=== PATIENT | female | born 1965 | race Caucasian/White ===

== ENCOUNTER 2020-09-24 08:15 | Outpatient (REF) | payer OTHER, SELFPAY ==
[2020-09-24 08:41] LABS: COVID-19 Test Negative (Negative)
== END 2020-09-24 08:16 | disposition home or self-care (01) ==
LOC: HO.EMPCOV 08:15
PROVIDERS: Visit Provider Internal Medicine
DX: Z20.828 Contact with and (suspected) exposure to other viral communicable diseases (principal)
CPT/HCPCS: 87635; C9803

== ENCOUNTER 2020-11-28 09:50 | Outpatient (REF) | payer OTHER, SELFPAY ==
[2020-11-28 10:10] LABS: COVID-19 Test Negative (Negative)
== END 2020-11-28 09:51 | disposition home or self-care (01) ==
LOC: HO.EMPCOV 09:50
PROVIDERS: Visit Provider Internal Medicine
DX: Z20.822 Contact with and (suspected) exposure to COVID-19 (principal)
CPT/HCPCS: 36415; 87635; C9803

== ENCOUNTER 2020-11-28 12:24 | Outpatient (REF) | payer OTHER, SELFPAY ==
[2020-11-28 13:45] LABS: Hematocrit 41.7 % (37-47); Hemoglobin 13.6 g/dl (12.0-16.0); Mean Corpuscular HGB Conc 32.6 g/dl (31.0-35.0); Mean Corpuscular Hemoglobin 30.6 pg (27.0-33.0); Mean Corpuscular Volume 93.9 fL (80-98); Mean Platelet Volume 9.8 fL (9.4-12.3); Platelet Count 250 X10*3/uL (160-400); Red Blood Count 4.44 X10*6/uL (4.20-5.50); Red Cell Distribution Width 12.2 % (11.0-16.0); White Blood Count 8.7 X10*3/uL (4.8-10.8)
[2020-11-28 14:09] LABS: Troponin-I High Sensitivity < 3.5 ng/L (<3.5-17.0)
[2020-11-28 14:18] LABS: Alanine Aminotransferase 31 U/L (0-31); Albumin Level 4.5 g/dL (3.5-5.0); Alkaline Phosphatase 72 U/L (39-117); Anion Gap 12 (12-20); Aspartate Amino Transferase 29 U/L (5-31); Bilirubin Direct < 0.2 mg/dL (0.0-0.5); Bilirubin Total 0.4 mg/dL (0.0-1.0); Blood Urea Nitrogen 15 mg/dL (9-16); Calcium 9.4 mg/dL (8.4-10.2); Carbon Dioxide 29 mmol/L (22-29); Chloride 103 mmol/L (96-108); Cholesterol 228 mg/dL; Estimated Glomerular Filt Rate > 60; Glucose Fasting 92 mg/dL (60-99); HDL Cholesterol 40 mg/dL; Potassium 4.5 mmol/L (3.3-5.1); Sodium 139 mmol/L (135-145); Total Protein 7.1 g/dL (6.5-8.0); Triglycerides 487 mg/dL
[2020-11-28 14:26] LABS: TSH reflex Free T4 2.24 uIU/mL (0.32-4.0)
== END 2020-11-28 12:25 | disposition home or self-care (01) ==
LOC: HO.WFDLDS 12:24
PROVIDERS: Visit Provider Hospitalist
DX: Z00.00 Encounter for general adult medical examination without abnormal findings (principal); R42 Dizziness and giddiness
CPT/HCPCS: 36415; 80048; 80061; 80076; 84443; 84484; 85027

== ENCOUNTER 2020-12-05 10:51 | Outpatient (REF) | payer OTHER, SELFPAY ==
[2020-12-05 12:15] LABS: COVID-19 Test Negative (Negative); IDNOW Serial# 55D5AD1C
== END 2020-12-05 10:52 | disposition home or self-care (01) ==
LOC: HO.LAB 10:51
PROVIDERS: PCP Hospitalist; Referring Provider Internal Medicine; Visit Provider Internal Medicine
DX: R07.2 Precordial pain (principal); R23.2 Flushing; R06.02 Shortness of breath; R94.31 Abnormal electrocardiogram [ECG] [EKG]; E78.5 Hyperlipidemia, unspecified; Z79.899 Other long term (current) drug therapy
CPT/HCPCS: 36415; 87635; 93005; C9803

== ENCOUNTER → 2020-12-11 08:14 | Outpatient (REF) | payer OTHER, SELFPAY ==
--- NOTE | ~2020-12-11 | NM_ITS ---
EXERCISE MYOCARDIAL PERFUSION STUDY INDICATION: Chest pain, shortness of breath, assess for coronary disease and ischemia TECHNIQUE: The patient was brought in for an exercise perfusion study on 12/11/2020. Patient performed exercise as per Nomi protocol and was injected 40 mCi of sestamibi once target heart rate was achieved. Images were obtained using the SPECT gamma camera interlaced with the gating device. Images were obtained in supine position. Resting perfusion study was performed on 12/13/2020. Patient was administered 40 mCi of sestamibi intravenously at rest. Images were then obtained in supine position. Total DLP 118mGy-cm. Images were processed with the software and compared side to side in short axis, horizontal long axis and vertical long axis views. FINDINGS: Raw images were reviewed. The stress perfusion study showed mildly diminished tracer uptake in the distal part of anteroseptal and inferolateral gracia; basal inferolateral wall. With CT attenuation correction, the distal anteroseptal defect is still present but others are improved. The gated study shows normal LV systolic function with calculated LVEF of 74%. LV cavity is normal in size. The gated study shows normal wall thickening and contraction of segments. Resting study shows a small perfusion defect in the distal anteroseptal wall but otherwise unremarkable. Gating at rest reveals normal wall motion with ejection fraction at 68%. The findings are consistent with no definite reversible defects. Fixed defect in the distal part of anteroseptal wall.. NM/NM cardiolite stress test IMPRESSION: 1. Myocardial perfusion imaging study shows no definitive ischemia or infarction. There is a fixed defect in the distal part of anteroseptal wall that is probably from soft tissue attenuation. 2. Gated LVEF is 74% during stress and 68% during rest. 3. Transient ischemic dilatation not present. EKG component of the test reported separately.
--- NOTE | 2020-12-11 08:18 | CA_ITS ---
Acquisition Time: 2020-12-11 08:42:53 Total Exercise Time: 00:05:00 Test Indications: CP, SOB Medications: SEE CHART Protocol: OG Max HR: 151 BPM 92% of Pred: 163 BPM Max BP: 198/070 mmHG Max Work Load: 7.0 METS Exercise stress nuclear using Og protocol. Total of 5 min. METS 7.00 with TAPHR up to 93 %. Pt tolerated well, denies any anginal sx. EKG without any arrhythmias, no ischemic changes seen during exercise or in recovery. Nuclear images to follow. Hypertensive response to exercise, normalizes in recovery. Test reviewed with Dr. Guevara. Referred By: Silverio Guevara Overread By:
== END ==
LOC: HO.CARD 08:14
PROVIDERS: Visit Provider Internal Medicine
DX: R07.2 Precordial pain (principal); R06.02 Shortness of breath
CPT/HCPCS: 78452; 93016; 93017; 93018; A9500

== ENCOUNTER → 2021-01-10 15:01 | Outpatient (REF) | payer OTHER, SELFPAY ==
--- NOTE | 2021-01-10 15:06 | CA_ITS ---
Transthoracic Echocardiogram Patient (Last, First, Middle): Cherrie Yusfu E Gender: Female Date of : 1965 Age: 55 Procedure Date: 01/10/2021 Procedure Type: Transthoracic Echocardiogram Location: OP Height: 160.02 cm Weight: 108.86 kg BSA: 2.09 m2 Heart Rate: bpm BP: 120 / 70 mmHg Deputy Probation Officer: TIA Referring MD: Silverio Guevara MD Symptoms: R07.2 - Precordial pain Study Quality: Fair ECG Rhythm: Sinus Conclusions: - The left ventricular systolic function is hyperdynamic. The visually estimated ejection fraction is >70%. - No obvious valvular pathology seen on this study. Findings Left Ventricle Normal left ventricular cavity size. There is normal left ventricular wall thickness. The left ventricular systolic function is hyperdynamic. The visually estimated ejection fraction is >70%. There is no evidence of regional wall motion abnormalities. There is no systolic anterior motion of the mitral valve. Diastolic function is normal for age. Right Ventricle Normal right ventricular cavity size and systolic function. Atria The left atrium is normal in size. The right atrium is normal in size. Aortic Valve There is a normal trileaflet aortic valve. There is no aortic valve stenosis. There is no aortic valve regurgitation. Mitral Valve The mitral valve appears normal. There is trace mitral valve regurgitation. There is trace mitral valve stenosis. Pulmonic Valve The pulmonic valve was not well visualized. Tricuspid Valve Normal tricuspid valve structure. There is trace tricuspid valve regurgitation. The pulmonary artery systolic pressure is normal. Great Vessels The aortic annulus, sinuses of valsalva, and asc aorta are normal in size. Venous The inferior vena cava is normal in size and collapses greater than 50% with inspiration. Pericardium/Pleural There is no evidence of pericardial effusion. Prior Study Comparison No prior study available for comparison. Recommendations, Care & Conclusions No obvious valvular pathology seen on this study. Measurements M-Mode Liner Measurements Normals - Women/Men AOV Cusps: 1.70 1.5-2.6 cm/m2 2D Linear Measurements IVSd: 0.90 0.6-0.9/0.6-1.0 cm LVIDd: 3.96 3.9-5.3/4.2-5.9 cm LVIDd Index: 1.89 2.4-3.2/2.2-3.1 cm/m2 LVIDs: 2.37 2.0-3.6 cm LVPWd: 0.92 0.7-1.1 cm Ao Root: 2.40 2.1-3.5 cm LA Diam: 3.40 2.7-3.8/3.0-4.0 cm LAIDs Index: 1.63 1.5-2.3 cm/m2 LV Mass: 135.62 67-162/88-224 g LV Mass Index: 64.89 43-95/49-115 g/m2 LVOT Diam: 1.70 3.0+(-)1.3 cm 2D Systolic Function EF 4C: 77.40 >55% EF 2C: 69.90 >55% EF BiP: 73.80 >55% Mitral Valve MV Pk E: 0.96 MV PK A: 0.81 MV Decel Time: 183.00 E/A: 1.20 E'Lateral: 13.70 E'Medial: 7.29 E/E' Med: 13.20 E/E' Lat: 7.00 PHT: 54.00 MVA PHT: 4.07 Decel [place]: 5.25 Aortic Valve AoV Pk German: 1.66 AoV Pk Grad: 11.00 LVOT LVOT Pk German: 1.41 LVOT Mn German: 0.88 LVOT VTI: 0.31 LVOT Pk Grad: 8.00 LVOT Mn Grad: 4.00 LVOT Diam: 1.70 LVOT Area: 2.27 Diastolic Function MV Pk E: 0.96 MV Pk A: 0.81 E/A: 1.20 E'Medial: 7.29 E/E' Med: 13.20 E' Laterial: 13.70 E/E' Lat: 7.00 Tricuspid Valve TR Pk German: 1.66 TR Pk Grad: 11.00 RA Press: 3.00 RVSP: 14.00 Great Vessels Aorta Ao Root-2D: 2.40 2.0-3.7 cm Ao Asc: 2.60 2.1-3.4 cm Ao Arch: 2.20 Pulmonary Valve PV Pk German: 1.00 Peak PV Grad: 4.00 Updated in Other Vendor System with Status of Final Silverio Guevara MD electronically signed on 01/12/2021 1:03:14 PM with status of Final
== END ==
LOC: HO.CARD 15:01
PROVIDERS: Visit Provider Internal Medicine
DX: R07.2 Precordial pain (principal)
CPT/HCPCS: 93306

== ENCOUNTER → 2021-01-14 15:19 | Outpatient (BNVA) | payer OTHER, SELFPAY | PROVIDERS: PCP Hospitalist; Visit Provider Internal Medicine ==

== ENCOUNTER 2021-03-12 07:59 | Outpatient (REF) | payer OTHER, SELFPAY ==
[2021-03-13 08:36] LABS: LDL Cholesterol Direct 130 mg/dL (<100)
== END 2021-03-12 08:00 | disposition home or self-care (01) ==
LOC: HO.LAB 07:59
PROVIDERS: PCP Hospitalist; Visit Provider Internal Medicine
DX: E78.2 Mixed hyperlipidemia (principal)
CPT/HCPCS: 36415; 83721

== ENCOUNTER → 2021-05-14 15:15 | Outpatient (BNVA) | payer OTHER, SELFPAY | PROVIDERS: PCP Hospitalist | DX: Z13.89 Encounter for screening for other disorder (principal) | CPT/HCPCS: 99203 ==

== ENCOUNTER 2021-06-11 17:00 | Outpatient (RCR) | payer OTHER, SELFPAY ==
--- NOTE | 2021-05-14 13:45 | MHC.PT.EP ---
[facility] [place] Office [place] Office [place] Office [address] Jaqueline Najera [address] [phone] F: [phone] F: [phone] F: [phone] F: [phone] Physical Therapy Plan of Care Date of Evaluation: Date of Surgery: N/A Diagnosis: R lateral hip/gluteal pain, muscle strain of gluteal region Assessment: Pt is a 55yo F who presents to PT with pain in R glute for about 1 month. Her pain has been improving but her pain is still her limiting performance with functional activities. Pt presents with current impairments in pain, strength, endurance, soft tissue restrictions, posture, and body mechanics. She is limited functionally by prolonged sitting, prolonged standing, squatting, and bending. She is an excellent candidate for skilled PT services to address current impairments and facilitate return to pain-free PLOF. Frequency and Duration: The patient will be seen 2x/week, 4 weeks Short Term Goals: Pt will be I with HEP to promote self management of symptoms Pt will improve glute med and max strength to 4-/5 Prorate Clerk Goals: Pt will demonstrate full, pain-free ROM and strength throughout R hip Pt will tolerate sitting >30 min with proper positioning and without pain Pt will demonstrate improvement in functional mobility as evidenced by statistically significant improvement in LEFI Treatment Plan: Modalities to reduce pain, spasms and effusion. Manual therapy to restore motion and function. Therapeutic exercise to improve strength and flexibility. Neuromuscular re-education for posture and balance. Therapeutic activities to return to functional activities of daily living. Electronically signed by: Katie Haider, PT, DPT Please sign and return to therapist. Thank you for your referral.
--- NOTE | 2021-05-30 16:37 | MHC.PT.DC ---
[facility] [place] Office [place] Office [place] Office [address] Jaqueline Najera 140 [facility] [phone] F: [phone] F: [phone] F: [phone] F: [phone] Physical Therapy Discharge Report Diagnosis: R lateral hip/gluteal pain, muscle strain of gluteal region Date of Surgery: N/A Date of Evaluation: 05/14/21 Date of Discharge: Treatments to Date: 4 Cancellations to Date: No Shows to Date: 1 Discharge Status: Discharge Summary: [employer] performed for R POST Inominate F/B shotgun.No increased px w/added core stab/Gentle stretches Electronically signed by: Alexander eLw PIPE COREMAKER Please sign and return to therapist. Thank you for your referral.
--- NOTE | 2021-06-11 18:17 | MHC.PT.DC ---
[facility] [place] Office [place] Office [place] Office [address] Jaqueline Najera [address] [phone] F: [phone] F: [phone] F: [phone] F: [phone] Physical Therapy Discharge Report Diagnosis: R lateral hip/gluteal pain, muscle strain of gluteal region Date of Surgery: N/A Date of Evaluation: 05/14/21 Date of Discharge: 06/11/21 Treatments to Date: 8 Cancellations to Date: No Shows to Date: 1 Discharge Status: Achieved Goals Improved Function Independent with HEP Discharge Summary: Pt has made great progress toward her goals. She has full, pain-free ROM throughout R hip. Her glute med strength improved to 4/5 and R glute max strength improved to 4-/5. She is able to sit >30 min without increase in pain. Pt is I with HEP. Provided pt with updated HEP and she has blue thera band at home. Pt will be D/C to HEP this date. Pt reports no further questions or concerns for PT at this time. Electronically signed by: Katie Haider, PT, DPT Please sign and return to therapist. Thank you for your referral.
== END 2021-06-11 18:16 | disposition home or self-care (01) ==
LOC: HO.PT 17:00
PROVIDERS: PCP Hospitalist; Visit Provider Family Medicine
DX: S76.019D Strain of muscle, fascia and tendon of unspecified hip, subsequent encounter (principal)
CPT/HCPCS: 97110; 97161

== ENCOUNTER 2021-06-13 | Outpatient (REF) | payer OTHER, SELFPAY | END 2021-06-13 00:01 | disposition home or self-care (01) | LOC: HO.LNP | PROVIDERS: Visit Provider Hospitalist | DX: Z20.822 Contact with and (suspected) exposure to COVID-19 (principal); B34.9 Viral infection, unspecified | CPT/HCPCS: U0003; U0005 ==

== ENCOUNTER 2021-06-14 11:42 | Outpatient (REF) | payer OTHER, SELFPAY | END 2021-06-14 11:43 | disposition home or self-care (01) | LOC: HO.LNP 11:42 | PROVIDERS: Visit Provider Hospitalist | DX: Z13.89 Encounter for screening for other disorder (principal) ==

== ENCOUNTER 2021-08-07 07:18 | Outpatient (REF) | payer OTHER, SELFPAY ==
[2021-08-07 07:27] LABS: MANUAL DIFF FLAG NO
[2021-08-07 07:55] LABS: Appearance Urine HAZY; Color Urine YELLOW; Glucose Urine UA NEG (NEG); Leukocyte Esterase Urine TRACE (NEG); Nitrite Urine NEG (NEG); Specific Gravity - Urine >= 1.030 (1.005-1.025); Urine Blood 2+ (NEG); Urine Ketones NEG (NEG); Urine Protein NEG (NEG-TRACE)
[2021-08-07 07:56] LABS: Basophils Percent Auto 0.4 % (0-2); Eosinophils Absolute Auto 0.1 X10*3/uL (0.0-0.4); Eosinophils Percent Auto 1.5 % (0-4); Hematocrit 42.7 % (37-47); Hemoglobin 14.2 g/dl (12.0-16.0); Imm Gran Abs Auto 0.02 X10*3/uL (0.00-0.03); Imm Gran Pct Auto 0.3 % (0.0-0.4); Lymphocytes Absolute Auto 2.6 X10*3/uL (1.2-4.9); Lymphocytes Percent Auto 36.6 % (20-40); Mean Corpuscular HGB Conc 33.3 g/dl (31.0-35.0); Mean Corpuscular Hemoglobin 30.5 pg (27.0-33.0); Mean Corpuscular Volume 91.6 fL (80-98); Mean Platelet Volume 9.6 fL (9.4-12.3); Monocytes Absolute Auto 0.4 X10*3/uL (0.1-1.2); Monocytes Percent Auto 5.1 % (2-11); Neutrophils Absolute Auto 4.1 X10*3/uL (2.0-8.3); Neutrophils Percent Auto 56.1 % (45-73); Platelet Count 234 X10*3/uL (160-400); Red Blood Count 4.66 X10*6/uL (4.20-5.50); Red Cell Distribution Width 12.1 % (11.0-16.0); White Blood Count 7.2 X10*3/uL (4.8-10.8)
[2021-08-07 08:19] LABS: Bacteria Urine TRACE /LPF; Mucus Urine 1+ /LPF; Renal Epithelial Cells Urine 1+ /LPF; Squamous Epithelial Cell Urine 2+ /LPF
[2021-08-07 08:19] LABS: Alanine Aminotransferase 24 U/L (0-31); Albumin Level 4.6 g/dL (3.5-5.0); Alkaline Phosphatase 79 U/L (39-117); Anion Gap 11 (12-20); Aspartate Amino Transferase 24 U/L (5-31); Blood Urea Nitrogen 11 mg/dL (9-16); Calcium 9.8 mg/dL (8.4-10.2); Carbon Dioxide 30 mmol/L (22-29); Chloride 106 mmol/L (96-108); Cholesterol 127 mg/dL; Estimated Glomerular Filt Rate > 60; Glucose Fasting 110 mg/dL (60-99); HDL Cholesterol 39 mg/dL; LDL Cholesterol Calculated 38 mg/dl; Potassium 4.8 mmol/L (3.3-5.1); Sodium 142 mmol/L (135-145); Total Protein 7.2 g/dL (6.5-8.0); Triglycerides 252 mg/dL
[2021-08-07 08:41] LABS: TSH reflex Free T4 2.31 uIU/mL (0.32-4.0)
[2021-08-08 05:51] LABS: LDL Cholesterol Direct 52 mg/dL (<100)
== END 2021-08-07 07:19 | disposition home or self-care (01) ==
LOC: HO.LAB 07:18
PROVIDERS: Internal Medicine; PCP Hospitalist; Visit Provider Family Medicine
DX: Z00.00 Encounter for general adult medical examination without abnormal findings (principal); E78.5 Hyperlipidemia, unspecified
CPT/HCPCS: 36415; 80053; 80061; 81001; 81003; 83721; 84443; 85025

== ENCOUNTER 2021-08-13 15:07 | Outpatient (REF) | payer OTHER, SELFPAY ==
[2021-08-16 15:01] LABS: HPV mRNA E6/E7 rflx Not Detected (Not Detected)
== END 2021-08-13 15:08 | disposition home or self-care (01) ==
LOC: HO.LAB 15:07
PROVIDERS: PCP Hospitalist; Visit Provider Advanced Practice Midwife
DX: Z01.419 Encounter for gynecological examination (general) (routine) without abnormal findings (principal); N88.8 Other specified noninflammatory disorders of cervix uteri; D21.9 Benign neoplasm of connective and other soft tissue, unspecified
CPT/HCPCS: 87624; 88142

== ENCOUNTER 2021-08-26 15:35 | Outpatient (REF) | payer OTHER, SELFPAY ==
--- NOTE | ~2021-08-26 | US_ITS ---
EXAMINATION: US PELVIS CLINICAL INFORMATION: Disorder of cervix. Fibroids. COMPARISON: None TECHNIQUE: Ultrasound of the pelvis is performed using both transabdominal and transvaginal transducers along with Doppler. Transvaginal imaging is performed due to inadequate visualization transabdominally. Exam is limited due to body habitus. FINDINGS: The uterus is anteverted and measures 10.7 x 7.3 x 8.1 cm in dimension. There are 3 focal uterine lesions seen probably representing fibroids. These measure 5.7 x 4.7 x 5.1 cm in the right uterine body, 4.1 x 4.8 x 3.8 cm in the left uterine body and 3.4 x 3 x 3 cm lesion projecting off the left uterine fundus. The endometrium is difficult to visualize due to the fibroids. Endometrial thickness measures 1.1 cm. There are nabothian cysts in the cervix. The ovaries are not seen. There is no fluid in the pelvis. US/US pelvic and transvaginal IMPRESSION: Limited exam. Enlarged fibroid uterus. Ovaries not seen.
== END 2021-08-26 15:36 | disposition home or self-care (01) ==
LOC: HO.US 15:35
PROVIDERS: Visit Provider Advanced Practice Midwife
DX: N88.8 Other specified noninflammatory disorders of cervix uteri (principal)
CPT/HCPCS: 76830; 76856

== ENCOUNTER 2021-09-05 08:32 | Outpatient (REF) | payer OTHER, SELFPAY | END 2021-09-05 08:33 | disposition home or self-care (01) | LOC: HO.LAB 08:32 | PROVIDERS: PCP Hospitalist; Visit Provider Obstetrics & Gynecology | DX: N90.89 Other specified noninflammatory disorders of vulva and perineum (principal) | CPT/HCPCS: 56605; 88305; 88312 ==

== ENCOUNTER → 2021-09-17 15:53 | Outpatient (BNVA) | payer OTHER, SELFPAY | PROVIDERS: PCP Hospitalist; Visit Provider Advanced Practice Midwife ==

== ENCOUNTER → 2021-09-25 15:44 | Outpatient (BNVA) | payer OTHER, SELFPAY | PROVIDERS: PCP Hospitalist; Visit Provider Obstetrics & Gynecology ==

== ENCOUNTER 2021-09-30 15:58 | Outpatient (REF) | payer OTHER, SELFPAY ==
--- NOTE | ~2021-09-30 | MM_ITS ---
EXAMINATION: MM SCREENING DIGITAL BREAST TOMOSYNTHESIS, BILATERAL CLINICAL INFORMATION: Screening. Asymptomatic. Prior xeu-il-imexa mammography currently unavailable. Family history breast cancer, maternal aunt. The lifetime risk of breast cancer based on the Tyrer-Cuzick Model is 10%. COMPARISON: None. TECHNIQUE: Digital breast tomosynthesis is performed in both the craniocaudal and mediolateral oblique views along with computer-aided detection (CAD). Synthesized 2D images are generated from the tomosynthesis. FINDINGS: There are scattered areas of fibroglandular density (ACR BI-RADS breast composition Category b). There are no significant masses, abnormal calcifications, or other abnormalities. The axilla and skin contours are unremarkable. Radiology department staff will attempt to retrieve prior mjm-bg-ultpo mammography to allow for comparison in an addendum report. MM/MM tomosynthesis screening BI IMPRESSION: No mammographic evidence of malignancy. ASSESSMENT: BI-RADS 1: Negative RECOMMENDATION: 1. Routine annual mammography screening. 2. Radiology department staff will attempt to retrieve prior buu-bq-iprub mammography to allow for comparison in an addendum report. This patient's information was entered into a reminder system with a target due date for their next mammogram.
== END 2021-09-30 15:59 | disposition home or self-care (01) ==
LOC: HO.MAMMO 15:58
PROVIDERS: PCP Hospitalist; Visit Provider Advanced Practice Midwife
DX: Z12.31 Encounter for screening mammogram for malignant neoplasm of breast (principal)
CPT/HCPCS: 77063; 77067

== ENCOUNTER 2021-10-25 07:03 | Day surgery (SDC) | payer OTHER, SELFPAY ==
[2021-10-15 12:59] VITALS: BMI 44.1
--- NOTE | 2021-10-24 11:59 | P.CONAN_ITS ---
Documented by User: Savanna Mota NP 11/04/21 12:19 HPI - Anesthesia Eval Consult details Narrative: 56yo F for Excision of Perineal Lesion PMFSH Active Problems Active Problems: All Active Problems (Updated 09/25/21 @ 15:57 by Nael Gee MD) Morbid obesity with BMI of 40.0-44.9, adult (Acute) Abnormal physical evaluation (Acute) Urinary incontinence (Acute) Encounter to discuss test results (Acute) Vulvar lesion (Acute) Encounter for annual routine gynecological examination (Acute) Fibroids (Acute) Immunization counseling (Acute) Viral syndrome (Acute) Muscle strain of gluteal region (Acute) Other and unspecified hyperlipidemia (Acute) Abnormal EKG (Acute) Precordial chest pain (Acute) Elevated triglycerides with high cholesterol (Acute) Drug interaction (Acute) Bradycardia (Acute) Dizziness (Acute) Past Medical History Medical History (Updated 12/10/21 @ 07:10 by Lety Saweyr RN) Asthma Depression Fibroids History of palpitations Other and unspecified hyperlipidemia Ovarian torsion Family History Family History Father High cholesterol Mother HTN (hypertension) Maternal Aunt History of breast cancer Other Mental health disorder Surgical History Surgical History (Updated 12/10/21 @ 07:11 by Lety Sawyer RN) History of arthroscopy of left knee History of D&C History of laparoscopic appendectomy History of laparoscopic cholecystectomy History of tonsillectomy Hx of colonoscopy Social History Social History Housing: Apartment Alcohol intake: current Alcohol intake frequency: holidays/special occasions only Patient Tobacco Use Status: Never used Tobacco e-Cigarette/Vaping Use: Never Used Second Hand Smoke Exposure: Yes Use of substances other than those prescribed or required for medical reasons: No Are you DNR?: No Advance Directives: No Advance Directives Information Provided: Yes service: No 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 Cognitive needs: No Hearing needs: No Vision needs: Yes (Glasses) Meds Allergies Allergy/AdvReac Type Severity Reaction Status Date / Time smallpox vaccine,live Allergy Severe seizures, Verified 12/10/21 07:11 grand mal aspirin Allergy Mild Hives Verified 12/10/21 07:11 bupropion [From Wellbutrin] Allergy Mild Palpitation Verified 12/10/21 07:11 s morphine Allergy Mild Rash Verified 12/10/21 07:11 Home Medications Medication Instructions Recorded Confirmed Last Taken Type duloxetine 20 mg capsule,delayed 20 mg PO DAILY cap 11/28/20 11/15/21 10/25/21 06:15 History release lamotrigine 150 mg tablet 150 mg PO DAILY 11/28/20 11/15/21 10/25/21 06:15 History (Lamictal) pramipexole 0.25 mg tablet 0.25 mg PO BEDTIME 11/28/20 11/15/21 Unknown History Exam Exam Date and Time: October 24, 2021 1159 Height,Weight and Vital Signs: Height 5 ft 3 in Weight 112.945 kg Pertinent Lab Results Pertinent Lab Results: Laboratory Tests 08/07/21 08/07/21 07:34 07:34 WBC 7.2 Hgb 14.2 Hct 42.7 Plt Count 234 Sodium 142 Potassium 4.8 Chloride 106 Carbon Dioxide 30 H BUN 11 Creatinine 0.85 Narrative Narrative: EKG 11/2020 sinus rhythm at 87/Min; leftward axis; nonspecific ST-T changes; cannot exclude old anteroseptal infarct; but could also be from body habitus. ECHO 11/2020 Conclusions: - The left ventricular systolic function is hyperdynamic.? The ? visually estimated ejection fraction is >70%.? - No obvious valvular pathology seen on this study.? NM cardiolite stress test 11/2020 IMPRESSION: ? 1.? Myocardial perfusion imaging study shows no definitive ischemia or infarction. There is a fixed defect in the distal part of anteroseptal wall that is probably from soft tissue attenuation. 2.? Gated LVEF is 74% during stress and 68% during rest. 3. Transient ischemic dilatation not present. ? EKG component of the test reported separately. (no ischemic changes seen during exercise or in recovery.) Assessment and Plan Assessment Anesthesia Assessment: Chart Reviewed Documented by User: Jose Chisholm MD 01/29/22 16:29 [facility] Past Medical History Medical History (Updated 12/10/21 @ 07:10 by Lety Sawyer, RN) Asthma Depression Fibroids History of palpitations Other and unspecified hyperlipidemia Ovarian torsion Family History Family History Father High cholesterol Mother HTN (hypertension) Maternal Aunt History of breast cancer Other Mental health disorder Family history of problems with anesthesia: No Surgical History Surgical History (Updated 12/10/21 @ 07:11 by Lety Sawyer, RN) History of arthroscopy of left knee History of D&C History of laparoscopic appendectomy History of laparoscopic cholecystectomy History of tonsillectomy Hx of colonoscopy History of Problems with Anesthesia: No Social History Social History Housing: Apartment Alcohol intake: current Alcohol intake frequency: holidays/special occasions only Patient Tobacco Use Status: Never used Tobacco e-Cigarette/Vaping Use: Never Used Second Hand Smoke Exposure: Yes Use of substances other than those prescribed or required for medical reasons: No Are you DNR?: No Advance Directives: No Advance Directives Information Provided: Yes service: No 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 Cognitive needs: No Hearing needs: No Vision needs: Yes (Glasses) Meds Allergies Allergy/AdvReac Type Severity Reaction Status Date / Time smallpox vaccine,live Allergy Severe seizures, Verified 12/10/21 07:11 grand mal aspirin Allergy Mild Hives Verified 12/10/21 07:11 bupropion [From Wellbutrin] Allergy Mild Palpitation Verified 12/10/21 07:11 s morphine Allergy Mild Rash Verified 12/10/21 07:11 Home Medications Medication Instructions Recorded Confirmed Last Taken Type duloxetine 20 mg capsule,delayed 20 mg PO DAILY cap 11/28/20 11/15/21 10/25/21 06:15 History release lamotrigine 150 mg tablet 150 mg PO DAILY 11/28/20 11/15/21 10/25/21 06:15 History (Lamictal) pramipexole 0.25 mg tablet 0.25 mg PO BEDTIME 11/28/20 11/15/21 Unknown History Exam Airway Mallampati Class: III TM Dist: >3cm Neck ROM: Full Loose/Missing/Broken Teeth: Yes (Caps , fillings ) Heart: S1, S2 Lungs: distant breath sounds b/l Assessment and Plan Assessment Anesthesia Assessment: Anesthesia Plan Discussed Final Anesthetic Review Family History of Problems with Anesthesia: No History of Problems with Anesthesia: No NPO: Yes ASA Class: III Final Preanesthetic Review: No Changes in Pt Med Stat, Meds/Allgs Chart Reviewed, Consent Obtained/Reviewed and Anes Risks/Benef Reviewed Patient Risk: Intermediate Procedure Risk: Intermediate Anesthetic Plan Anesthetic Plan: GA Disposition: Standard PACU
[2021-10-25] VITALS (7 sets, daily range): BP systolic 112–147; BP diastolic 62–75; PULSE 70–84; RESP 14–17; TEMP 36.1–37.1; O2SAT 93–99
[2021-10-25] MEDS: Lactated Ringers 1,000 ML 100 ML IVCONT (07:31)
--- NOTE | 2021-10-25 07:37 | MHC.SHP ---
Pre-Procedural Eval Section A Date of Service: 10/25/21 The patient is an INPATIENT: No Changes since office visit: No Cold of Flu in the past 2 weeks, No New Medical Problems, No Changes in Medication and No Patient answered all questions The History & Physical has been completed within 30 days and I have reviewed it.: Yes Section B Chief Complaint: disorder of vulva Allergies: Allergies Allergy/AdvReac Type Severity Reaction Status Date / Time smallpox vaccine,live Allergy Severe seizures, Verified 10/25/21 07:09 grand mal aspirin Allergy Mild Hives Verified 10/25/21 07:09 bupropion [From Wellbutrin] Allergy Mild Palpitation Verified 10/25/21 07:09 s morphine Allergy Mild Rash Verified 10/25/21 07:09 Plan Diagnosis/Plan: Unchanged I have reviewed the history and physical and performed a pertinent physical examination on my patient. No changes have occurred unless specified.
--- NOTE | 2021-10-25 09:06 | P.BOP_ITS ---
Brief Operative Note Date of Service: 10/25/21 Pre-op diagnosis: Right and left labia majora lesion with the periclitoral lesion Post-op diagnosis: same Procedure: Excision of right labia majora lesion, left labia majora lesion, periclitoral lesion Surgeon: Nael Gee MD Anesthesia: MAC Was an Product Development Director used for this Procedure?: No Estimated blood loss (mL): 0 Pathology: other (Right labia majora, left labia majora, and periclitoral lesions) Condition: stable Disposition: PACU
--- NOTE | 2021-10-25 09:08 | W.PM.OPN ---
Operative Note Operative Note Date of Service: 10/25/21 Narrative: Preop diagnosis: A Right labia majora, a left labia majora, and a periclitoral lesion Operation: Excision of right labia majora lesion left labia majora lesion and periclitoral lesion Postop diagnosis: The same Anesthesia: Mac and local Complications: None Estimated blood loss: 0 cc Pathology: Right labia majora lesion, left labia majora lesion, periclitoral lesion Supervisor Irrigation: None Procedure: The patient was put in the dorsal lithotomy position after given anesthesia, scrubbed and draped in usual sterile fashion. Left 3 lesions was identified on the right labia majora, left labia majora and periclitoral. Using an 11 blade, the lesions was cut with normal looking skin around it, and the lesions was excised from the subq layer. Using 4-0 Vicryl subcuticular sutures were used to approximate the skin. Hemostasis was assured. At the and of procedure 9 cc of Marcaine plain were injected in the subq layer underneath each lesion
[2021-10-25] MEDS: Acetaminophen 325 MG TABLET 650 MG PO (09:33)
== END 2021-10-25 10:25 | disposition home or self-care (01) ==
PROVIDERS: PCP Hospitalist; Visit Provider Obstetrics & Gynecology
PROC: (CPT 11421; principal; 2021-10-25 08:30)
DX: N90.89 Other specified noninflammatory disorders of vulva and perineum (principal); D18.09 Hemangioma of other sites; D28.0 Benign neoplasm of vulva; Z88.8 Allergy status to other drugs, medicaments and biological substances
CPT/HCPCS: 11421 ×3; 88305; J0690; J1100; J2250; J2405; J3010

== ENCOUNTER → 2021-11-07 15:30 | Outpatient (BNVA) | payer OTHER, SELFPAY | PROVIDERS: PCP Hospitalist; Visit Provider Obstetrics & Gynecology ==

== ENCOUNTER → 2021-11-15 15:19 | Outpatient (BNVA) | payer OTHER, SELFPAY | PROVIDERS: PCP Hospitalist; Referring Provider Hospitalist; Visit Provider Internal Medicine Gastroenterology ==

== ENCOUNTER 2021-11-20 13:54 | Outpatient (REF) | payer OTHER, SELFPAY ==
[2021-11-20 14:40] LABS: Influenza A PCR NEGATIVE (Negative); Influenza B PCR NEGATIVE (Negative); Resp Syncy Virus RNA Qual PCR NEGATIVE (Negative); SARS COV2 PCR INHOUSE NEGATIVE (Negative)
== END 2021-11-20 13:55 | disposition home or self-care (01) ==
LOC: HO.LNP 13:54
PROVIDERS: Visit Provider Family Medicine
DX: B34.9 Viral infection, unspecified (principal); Z20.822 Contact with and (suspected) exposure to COVID-19
CPT/HCPCS: 0241U

== ENCOUNTER 2021-12-10 07:02 | Day surgery (SDC) | payer OTHER, SELFPAY ==
--- NOTE | 2021-12-06 10:22 | HO.ANESPROP2 ---
Documented by User: Savanna Mota NP 12/06/21 10:23 HPI - Anesthesia Eval Consult details Narrative: 56yo F for Colonoscopy PMFSH Active Problems Active Problems: All Active Problems (Updated 11/20/21 @ 10:56 by Aleks Reich) Viral illness (Acute) NAFL (nonalcoholic fatty liver) (Acute) Colon cancer screening (Acute) IBS (irritable bowel syndrome) (Acute) Dizziness (Acute) Bradycardia (Acute) Drug interaction (Acute) Elevated triglycerides with high cholesterol (Acute) Precordial chest pain (Acute) Abnormal EKG (Acute) Muscle strain of gluteal region (Acute) Viral syndrome (Acute) Immunization counseling (Acute) Encounter for annual routine gynecological examination (Acute) Vulvar lesion (Acute) Encounter to discuss test results (Acute) Urinary incontinence (Acute) Abnormal physical evaluation (Acute) Morbid obesity with BMI of 40.0-44.9, adult (Acute) Fibroids (Acute) Other and unspecified hyperlipidemia (Acute) Past Medical History Medical History (Updated 12/10/21 @ 07:10 by Lety Sawyer RN) Asthma Depression Fibroids History of palpitations Other and unspecified hyperlipidemia Ovarian torsion Family History Family History Father High cholesterol Mother HTN (hypertension) Maternal Aunt History of breast cancer Other Mental health disorder Family history of problems with anesthesia: No Surgical History Surgical History (Updated 12/10/21 @ 07:11 by Lety Sawyer RN) History of arthroscopy of left knee History of D&C History of laparoscopic appendectomy History of laparoscopic cholecystectomy History of tonsillectomy Hx of colonoscopy History of Problems with Anesthesia: No Social History Social History Housing: Apartment Alcohol intake: current Alcohol intake frequency: holidays/special occasions only Patient Tobacco Use Status: Never used Tobacco e-Cigarette/Vaping Use: Never Used Second Hand Smoke Exposure: Yes Use of substances other than those prescribed or required for medical reasons: No Are you DNR?: No Advance Directives: No Advance Directives Information Provided: Yes service: No 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 Cognitive needs: No Hearing needs: No Vision needs: Yes (Glasses) Meds Allergies Allergy/AdvReac Type Severity Reaction Status Date / Time smallpox vaccine,live Allergy Severe seizures, Verified 12/10/21 07:11 grand mal aspirin Allergy Mild Hives Verified 12/10/21 07:11 bupropion [From Wellbutrin] Allergy Mild Palpitation Verified 12/10/21 07:11 s morphine Allergy Mild Rash Verified 12/10/21 07:11 Home Medications Medication Instructions Recorded Confirmed Last Taken Type duloxetine 20 mg capsule,delayed 20 mg PO DAILY cap 11/28/20 11/15/21 10/25/21 06:15 History release lamotrigine 150 mg tablet 150 mg PO DAILY 11/28/20 11/15/21 10/25/21 06:15 History (Lamictal) pramipexole 0.25 mg tablet 0.25 mg PO BEDTIME 11/28/20 11/15/21 Unknown History Exam Exam Date and Time: December 06, 2021 1022 Pertinent Lab Results Pertinent Lab Results: Laboratory Tests ? 08/07/21 08/07/21 ? 07:34 07:34 WBC ?7.2 ? Hgb ?14.2 ? Hct ?42.7 ? Plt Count ?234 ? Sodium ? ?142 Potassium ? ?4.8 Chloride ? ?106 Carbon Dioxide ? ?30 H BUN ? ?11 Creatinine ? ?0.85 Narrative Narrative: EKG 11/2020 sinus rhythm at 87/Min; leftward axis; nonspecific ST-T changes; cannot exclude old anteroseptal infarct; but could also be from body habitus. ECHO 11/2020 Conclusions: - The left ventricular systolic function is hyperdynamic.? The ? visually estimated ejection fraction is >70%.? - No obvious valvular pathology seen on this study.? NM cardiolite stress test 11/2020 IMPRESSION: ? 1.? Myocardial perfusion imaging study shows no definitive ischemia or infarction. There is a fixed defect in the distal part of anteroseptal wall that is probably from soft tissue attenuation. 2.? Gated LVEF is 74% during stress and 68% during rest. 3. Transient ischemic dilatation not present. ? EKG component of the test reported separately. (no ischemic changes seen during exercise or in recovery.) Assessment and Plan Assessment Anesthesia Assessment: Chart Reviewed Final Anesthetic Review Family History of Problems with Anesthesia: No History of Problems with Anesthesia: No Documented by User: Oscar Pantoja MD 12/10/21 09:02 [facility] Past Medical History Medical History (Updated 12/10/21 @ 07:10 by Lety Sawyer, ZARINA) Asthma Depression Fibroids History of palpitations Other and unspecified hyperlipidemia Ovarian torsion Family History Family History Father High cholesterol Mother HTN (hypertension) Maternal Aunt History of breast cancer Other Mental health disorder Surgical History Surgical History (Updated 12/10/21 @ 07:11 by Lety Sawyer RN) History of arthroscopy of left knee History of D&C History of laparoscopic appendectomy History of laparoscopic cholecystectomy History of tonsillectomy Hx of colonoscopy Social History Social History Housing: Apartment Alcohol intake: current Alcohol intake frequency: holidays/special occasions only Patient Tobacco Use Status: Never used Tobacco e-Cigarette/Vaping Use: Never Used Second Hand Smoke Exposure: Yes Use of substances other than those prescribed or required for medical reasons: No Are you DNR?: No Advance Directives: No Advance Directives Information Provided: Yes service: No 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 Cognitive needs: No Hearing needs: No Vision needs: Yes (Glasses) Meds Allergies Allergy/AdvReac Type Severity Reaction Status Date / Time smallpox vaccine,live Allergy Severe seizures, Verified 12/10/21 07:11 grand mal aspirin Allergy Mild Hives Verified 12/10/21 07:11 bupropion [From Wellbutrin] Allergy Mild Palpitation Verified 12/10/21 07:11 s morphine Allergy Mild Rash Verified 12/10/21 07:11 Home Medications Medication Instructions Recorded Confirmed Last Taken Type duloxetine 20 mg capsule,delayed 20 mg PO DAILY cap 11/28/20 11/15/21 10/25/21 06:15 History release lamotrigine 150 mg tablet 150 mg PO DAILY 11/28/20 11/15/21 10/25/21 06:15 History (Lamictal) pramipexole 0.25 mg tablet 0.25 mg PO BEDTIME 11/28/20 11/15/21 Unknown History Exam Airway Mallampati Class: II TM Dist: >3cm Neck ROM: Full Loose/Missing/Broken Teeth: Yes Assessment and Plan Assessment Anesthesia Assessment: Anesthesia Plan Discussed Final Anesthetic Review NPO: Yes ASA Class: III Final Preanesthetic Review: No Changes in Pt Med Stat, Meds/Allgs Chart Reviewed, Consent Obtained/Reviewed and Anes Risks/Benef Reviewed Patient Risk: Intermediate Procedure Risk: Low Anesthetic Plan Anesthetic Plan: MAC: Disposition: Standard PACU
[2021-12-10 07:21] VITALS: BMI 42.8
[2021-12-10 07:27] VITALS: BP 134/75; PULSE 77; RESP 16; TEMP 36.3; O2SAT 96
[2021-12-10] MEDS: Lactated Ringers 1,000 ML 100 ML IVCONT (07:40)
--- NOTE | 2021-12-10 08:43 | MHC.SHP ---
Pre-Procedural Eval Section A Date of Service: 12/10/21 The patient is an INPATIENT: No Changes since office visit: Yes Patient answered all questions; No Cold of Flu in the past 2 weeks, No New Medical Problems and No Changes in Medication The History & Physical has been completed within 30 days and I have reviewed it.: Yes Section B Chief Complaint: Screening Allergies: Allergies Allergy/AdvReac Type Severity Reaction Status Date / Time smallpox vaccine,live Allergy Severe seizures, Verified 12/10/21 07:11 grand mal aspirin Allergy Mild Hives Verified 12/10/21 07:11 bupropion [From Wellbutrin] Allergy Mild Palpitation Verified 12/10/21 07:11 s morphine Allergy Mild Rash Verified 12/10/21 07:11 Plan I have reviewed the history and physical and performed a pertinent physical examination on my patient. No changes have occurred unless specified.
--- NOTE | 2021-12-10 08:48 | P.OP_ITS ---
Operative Note Operative Note Date of Service: 12/10/21 Narrative: Pre-op diagnosis: Colon cancer screening, IBS mixed, personal and FH of colon polyps Post-op diagnosis:?other (Colon polyps, diverticulosis) Procedure: COLONOSCOPY TILL CECUM WITH BIOPSIES AND SNARE POLYPECTOMY Consent: Indications for the procedure and potential complications of bleeding, perforation, reaction to medications and missed diagnosis were discussed with the patient and informed consent was obtained. Instrument: Olympus PCF H 190 L variable stiffness pediatric colonoscope Monitoring: Vital signs and clinical assessment, intermittent blood pressure monitoring, continuous EKG monitoring, Pulse oximetry and Carbon Dioxide monitoring were done throughout the procedure. Colon withdrawl time was 28 minutes. Procedure: The patient was placed in the left lateral decubitis position and pre-procedure medications were administered. After a digital rectal examination of the ano-rectum, the video colonoscope was inserted into the rectum and advanced through the colon to the cecum. The colonoscope was slowly withdrawn in a retrograde panoramic fashion and the colon mucosa was carefully examined including a retroflexed view of the rectum. Findings and interventions are described below. Procedure Difficulty: Without difficulty Findings: Terminal Ileum: Not evaluated Cecum:? Normal Ascending Colon:? Normal Transverse Colon:? A 10 mm sessile polyp removed with the cold snare Descending Colon:? Normal Sigmoid Colon:? Moderate diverticulosis Rectum:? Normal Ano-rectum:? Normal Colon preparation:? Good after some irrigation Impression and Post Procedure Diagnosis: Colonoscopy Findings: One medium sized polyp removed Random biopsies were obtained from the colon to check for microscopic colitis Moderate diverticulosis seen in the sigmoid colon Plan: I will send a letter with pathology results Patient has an appointment on 03/20/22 in the [facility] with Luis Temple M.D. Repeat Colonoscopy interval based on path results - in 3-5 years if polyps are adenomatous and 10 years if polyps are hyperplastic. Above findings were reviewed with the patient and colon polyps and diverticulosis handouts were given in the discharge area Surgeon: Luis Temple MD Anesthesia:?MAC (Dr Pantoja) Was an Therapeutic Sales Specialist used for this Procedure?:?Yes Therapeutic Sales Specialist:?Mary Kay Antonio Estimated blood loss (mL):?0 Pathology:?other (A- Random colon biopsies? B- Transverse colon polyp) Condition:?stable Disposition:?PACU
[2021-12-10 09:42] VITALS: BP 116/70; PULSE 75; RESP 18; TEMP 36.7; O2SAT 94
[2021-12-10 09:57] VITALS: BP 105/51; PULSE 69; RESP 18; TEMP 36.5; O2SAT 97
== END 2021-12-10 10:32 | disposition home or self-care (01) ==
PROVIDERS: PCP Hospitalist; Visit Provider Internal Medicine Gastroenterology
PROC: 0DJD8ZZ Inspection of Lower Intestinal Tract, Via Natural or Artificial Opening Endoscopic (ICD-10-PCS; CPT 45378; principal; 2021-12-10 08:20)
DX: Z12.11 Encounter for screening for malignant neoplasm of colon (principal); Z86.010 Personal history of colon polyps; Z83.71 Family history of colonic polyps; D12.3 Benign neoplasm of transverse colon; K57.30 Diverticulosis of large intestine without perforation or abscess without bleeding; K58.2 Mixed irritable bowel syndrome; K76.0 Fatty (change of) liver, not elsewhere classified; E78.5 Hyperlipidemia, unspecified; F32.9 Major depressive disorder, single episode, unspecified; J45.909 Unspecified asthma, uncomplicated; Z79.899 Other long term (current) drug therapy; Z88.8 Allergy status to other drugs, medicaments and biological substances; Z90.49 Acquired absence of other specified parts of digestive tract
CPT/HCPCS: 45385; 45380; 88305

== ENCOUNTER 2022-09-18 18:49 | Emergency (ER) | payer OTHER, SELFPAY ==
--- NOTE | ~2022-09-18 | XR_ITS ---
EXAMINATION: XR KNEE, LEFT CLINICAL INFORMATION: Left knee pain COMPARISON: None TECHNIQUE: AP and lateral views of the left knee. FINDINGS: Large joint effusion. No acute fracture or dislocation. Joint spaces appear fairly well-maintained. Small tricompartmental marginal osteophytes and spurring of the tibial spines. Possible subchondral cystic change at the upper patella as well. Faint chondrocalcinosis noted. No osseous lesion. XR/XR knee LT 2V IMPRESSION: 1. Large joint effusion. 2. No acute osseous injury. 3. Mild tricompartmental knee joint osteoarthropathy. 4. Chondrocalcinosis.
[2022-09-18 20:58] VITALS: BP 144/64; PULSE 70; RESP 16; TEMP 36.2; O2SAT 98; BMI 43.0
--- NOTE | 2022-09-18 23:48 | ED_ITS ---
HPI - Extremity Problem General Chief complaint: Extremity Problem Stated complaint: left knee pain Time Seen by Provider: 09/18/22 23:47 Source: patient Limitations: no limitations History of Present Illness HPI Narrative: This is a 48-year-old female with a history of arthroscopy to her left knee for meniscal tears, twice, who complains of pain and swelling to her left knee since yesterday. The patient denies any injury. 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 She denies any redness or warmth to the knee. She denies fever. She tried taking Flexeril without relief. She does sometimes take ibuprofen for foot pain but has not taken any ibuprofen since the knee symptoms started. Related Data Home Medications Medication Instructions Recorded Confirmed duloxetine 20 mg capsule,delayed 20 mg PO DAILY 11/28/20 09/08/22 release lamotrigine 150 mg tablet 150 mg PO DAILY 11/28/20 09/08/22 (Lamictal) pramipexole 0.25 mg tablet 0.25 mg PO BEDTIME 11/28/20 09/08/22 Previous Rx's Medication Instructions Recorded rosuvastatin 20 mg tablet (Crestor) 20 mg PO DAILY #90 tabs 04/05/21 albuterol sulfate 90 mcg/actuation 1 inh inhalation Q6H PRN for 04/01/22 aerosol inhaler wheezing 1 month #8.5 grams cyclobenzaprine 10 mg tablet 10 mg PO TID PRN muscle spasm #30 09/08/22 tabs naproxen 500 mg tablet 500 mg PO BID PRN pain #30 tabs 09/08/22 Allergies Allergy/AdvReac Type Severity Reaction Status Date / Time smallpox vaccine,live Allergy Severe seizures, Verified 09/18/22 21:00 grand mal aspirin Allergy Mild Hives Verified 09/18/22 21:00 bupropion [From Wellbutrin] Allergy Mild Palpitation Verified 09/18/22 21:00 s morphine Allergy Mild Rash Verified 09/18/22 21:00 Review of Systems Review of Systems: As per HPI Constitutional: Constitutional: Denies fever(s) Musculoskeletal: Musculoskeletal: Reports as per HPI, Reports arthralgias and Reports joint swelling Integumentary/Breasts: Comments: No complain PMFSH Past Medical History Medical History Asthma Depression Fibroids History of palpitations Other and unspecified hyperlipidemia Ovarian torsion Surgical History History of arthroscopy of left knee History of D&C History of laparoscopic appendectomy History of laparoscopic cholecystectomy History of tonsillectomy Hx of colonoscopy Family History Family History Father High cholesterol Mother HTN (hypertension) Maternal Aunt History of breast cancer Other Mental health disorder Social History Social History Housing: Apartment Alcohol intake: current Alcohol intake frequency: holidays/special occasions only Patient Tobacco Use Status: Never used Tobacco Smoked in Last 30 Days: No e-Cigarette/Vaping Use: Never Used Second Hand Smoke Exposure: Yes Use of substances other than those prescribed or required for medical reasons: No Advance Directives: No Advance Directives Information Provided: Yes service: No 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 Left knee with a mild effusion, no erythema or warmth, no ecchymosis Neuro alert and oriented x 3, non focal Medications Administered Discontinued Medications Generic Name Dose Route Start Last Admin Trade Name Freq PRN Reason Stop Dose Admin Ibuprofen 600 mg 09/18/22 23:56 09/19/22 00:17 Ibuprofen 600 Mg Tablet PO 09/18/22 23:57 600 mg ONCE ONE Administration MDM - Extremity (Nontraumatic) MDM Narrative Medical decision making narrative: Patient with prior left knee surgery, has left knee pain and mild to moderate effusion. No clinical evidence of septic joint or gout. Patient likely has arthritis with an associated effusion. Patient's left knee was placed in a knee immobilizer and she is being started on ibuprofen 600 mg every 6 hours with food. She is to be out of work for the next 4-5 days and follow-up with orthopedic Imaging Data Knee x-ray: Radiologist's impression: IMPRESSION: 1.? Large joint effusion. 2.? No acute osseous injury. 3.? Mild tricompartmental knee joint osteoarthropathy. 4.? Chondrocalcinosis. Discharge Plan Discharge Clinical Impression: Effusion of knee joint, left Patient Disposition: Home, Self-Care Instructions: Swollen Knee Joint (ED) Additional Instructions: Take ibuprofen 600 mg every 6 hours with food for pain and inflammation. Wear the knee immobilizer for the next 5-7 days. Follow up with Orthopedics next week for re-evaluation Prescriptions: No Action rosuvastatin [Crestor] 20 mg tablet 20 mg PO DAILY Qty: 90 4RF albuterol sulfate 90 mcg/actuation HFA aerosol inhaler 1 inh inhalation Q6H PRN (Reason: for wheezing) 30 Days Qty: 8.5 10RF duloxetine 20 mg capsule,delayed release(DR/EC) 20 mg PO DAILY lamotrigine [Lamictal] 150 mg tablet 150 mg PO DAILY pramipexole 0.25 mg tablet 0.25 mg PO BEDTIME cyclobenzaprine 10 mg tablet 10 mg PO TID PRN (Reason: muscle spasm) Qty: 30 0RF naproxen 500 mg tablet 500 mg PO BID PRN (Reason: pain) Qty: 30 0RF Referrals: Basilio Arnett MD [Physician] - 1 week Stand Alone Forms: Work/School Release Interventions: ED Discharge Assessment Last Done: 09/19/22 00:27 Discharge Date/Time: 09/19/22 00:27
[2022-09-19] VITALS: BP 132/67; PULSE 70; RESP 18; TEMP 36.7; O2SAT 95
[2022-09-19] MEDS: Ibuprofen 600 MG TABLET PO (00:17)
== END 2022-09-19 00:27 | disposition home or self-care (01) ==
PROVIDERS: Emergency Provider Emergency Medicine; PCP Hospitalist
DX: M25.462 Effusion, left knee (principal); M25.562 Pain in left knee; E66.9 Obesity, unspecified; Z68.41 Body mass index [BMI] 40.0-44.9, adult
CPT/HCPCS: 73560; 99283; 99284

== ENCOUNTER 2022-09-29 | Outpatient (REF) | payer OTHER, SELFPAY ==
--- NOTE | ~2022-09-29 | XR_ITS ---
EXAMINATION: XR KNEE AP STANDING, 2 views of the left knee CLINICAL INFORMATION: Pain COMPARISON: None TECHNIQUE: 2 views of the left knee AP bilateral standing view of the knees was obtained. FINDINGS: Bones and soft tissues are normal. No fracture. Small suprapatellar effusion. Alignment is anatomic. Joint spaces are well maintained. No abnormal soft tissue calcification. XR/XR knee standing BI IMPRESSION: Small suprapatellar effusion.
--- NOTE | ~2022-09-29 | XR_ITS ---
EXAMINATION: XR KNEE AP STANDING, 2 views of the left knee CLINICAL INFORMATION: Pain COMPARISON: None TECHNIQUE: 2 views of the left knee AP bilateral standing view of the knees was obtained. FINDINGS: Bones and soft tissues are normal. No fracture. Small suprapatellar effusion. Alignment is anatomic. Joint spaces are well maintained. No abnormal soft tissue calcification. XR/XR knee LT 1V IMPRESSION: Small suprapatellar effusion.
== END 2022-09-29 00:01 | disposition home or self-care (01) ==
LOC: HO.HOSX
PROVIDERS: Visit Provider Physician Assistant
DX: M23.92 Unspecified internal derangement of left knee (principal)
CPT/HCPCS: 20610; 73560; 73565; J1040

== ENCOUNTER 2022-10-03 16:00 | Outpatient (REF) | payer OTHER, SELFPAY ==
--- NOTE | ~2022-10-03 | MM_ITS ---
EXAMINATION: MM SCREENING DIGITAL BREAST TOMOSYNTHESIS, BILATERAL CLINICAL INFORMATION: Screening. Asymptomatic. The lifetime risk of breast cancer based on the Tyrer-Cuzick Model is 9%. COMPARISON: Mammography: 09/30/2021 (new baseline) TECHNIQUE: Digital breast tomosynthesis is performed in both the craniocaudal and mediolateral oblique views along with computer-aided detection (CAD). Synthesized 2D images are generated from the tomosynthesis. FINDINGS: There are scattered areas of fibroglandular density (ACR BI-RADS breast composition Category b). There are no significant masses, abnormal calcifications, or other abnormalities. Parenchymal pattern is similar to prior studies. There is no developing density or architectural abnormality. The axilla and skin contours are unremarkable. No significant changes. MM/MM tomosynthesis screening BI IMPRESSION: No mammographic evidence of malignancy. ASSESSMENT: BI-RADS 1: Negative RECOMMENDATION: Routine annual mammography screening. This patient's information was entered into a reminder system with a target due date for their next mammogram.
== END 2022-10-03 16:01 | disposition home or self-care (01) ==
LOC: HO.MAMMO 16:00
PROVIDERS: PCP Hospitalist; Visit Provider Hospitalist
DX: Z12.31 Encounter for screening mammogram for malignant neoplasm of breast (principal)
CPT/HCPCS: 77063; 77067

== ENCOUNTER 2023-03-13 07:24 | Outpatient (REF) | payer OTHER, SELFPAY ==
[2023-03-13 07:34] LABS: MANUAL DIFF FLAG NO
[2023-03-13 08:11] LABS: Basophils Percent Auto 0.3 % (0-2); Eosinophils Absolute Auto 0.1 X10*3/uL (0.0-0.4); Eosinophils Percent Auto 1.6 % (0-4); Hematocrit 41.4 % (37.0-47.0); Hemoglobin 13.8 g/dl (12.0-16.0); Imm Gran Abs Auto 0.02 X10*3/uL (0.00-0.03); Imm Gran Pct Auto 0.3 % (0.0-0.4); Lymphocytes Absolute Auto 2.7 X10*3/uL (1.2-4.9); Lymphocytes Percent Auto 40.5 % (20-40); Mean Corpuscular HGB Conc 33.3 g/dl (31.0-35.0); Mean Corpuscular Hemoglobin 30.2 pg (27.0-33.0); Mean Corpuscular Volume 90.6 fL (80.0-98.0); Mean Platelet Volume 9.3 fL (9.4-12.3); Monocytes Absolute Auto 0.3 X10*3/uL (0.1-1.2); Monocytes Percent Auto 5.1 % (2-11); Neutrophils Absolute Auto 3.5 x10*3/uL (2.0-8.3); Neutrophils Percent Auto 52.2 % (45-73); Platelet Count 232 X10*3/uL (160-400); Red Blood Count 4.57 X10*6/uL (4.20-5.50); Red Cell Distribution Width 12.1 % (11.0-16.0); White Blood Count 6.7 X10*3/uL (4.8-10.8)
[2023-03-13 08:36] LABS: Alanine Aminotransferase 34 U/L (0-31); Albumin Level 4.3 g/dL (3.5-5.0); Alkaline Phosphatase 76 U/L (39-117); Anion Gap 14 (12-20); Aspartate Amino Transferase 30 U/L (5-31); Bilirubin Total 0.5 mg/dL (0.0-1.0); Blood Urea Nitrogen 13 mg/dL (9-16); Calcium 9.8 mg/dL (8.4-10.2); Carbon Dioxide 29 mmol/L (22-29); Chloride 105 mmol/L (96-108); Cholesterol 144 mg/dL; Estimated Glomerular Filt Rate > 60; Glucose Fasting 106 mg/dL (60-99); HDL Cholesterol 40 mg/dL; LDL Cholesterol Calculated 55 mg/dl; Potassium 4.5 mmol/L (3.3-5.1); Sodium 143 mmol/L (135-145); Total Protein 6.8 g/dL (6.5-8.0); Triglycerides 246 mg/dL
[2023-03-13 08:50] LABS: TSH reflex Free T4 2.77 uIU/mL (0.32-4.0)
[2023-03-13 08:54] LABS: Appearance Urine Clear; Color Urine Yellow; Glucose Urine UA Negative (Negative); Leukocyte Esterase Urine Negative (Negative); Nitrite Urine Negative (Negative); Specific Gravity - Urine >= 1.030 (1.005-1.025); UMIC TRIGGER UA YES; Urine Blood Small (1+) (Negative); Urine Ketones Negative (Negative); Urine Protein Trace mg/dL (Neg-Trace)
[2023-03-13 09:17] LABS: Microalbum/Creatinine Ratio Ur 10.3 ug/mg cr
[2023-03-13 09:21] LABS: Calcium Oxalate Crystals Urine Present
[2023-03-13 09:23] LABS: RBC Urine 0-2 /HPF (0-2); Squamous Epithelial Cell Urine 0-2 /HPF (0-2)
[2023-03-13 09:24] LABS: Bacteria Urine None Seen (None Seen); Hyaline Casts Urine 0-2 /LPF (0-2); WBC Urine 0-5 /HPF (0-5)
== END 2023-03-13 07:25 | disposition home or self-care (01) ==
LOC: HO.LAB 07:24
PROVIDERS: PCP Family Medicine; Visit Provider Family Medicine
DX: Z00.00 Encounter for general adult medical examination without abnormal findings (principal); I10 Essential (primary) hypertension; R74.8 Abnormal levels of other serum enzymes
CPT/HCPCS: 36415; 80053; 80061; 81001; 82043; 84443; 85025

== ENCOUNTER 2023-03-17 15:28 | Outpatient (REF) | payer OTHER, SELFPAY ==
[2023-03-18 11:41] LABS: Appearance Urine Clear; Color Urine Yellow; Glucose Urine UA Negative (Negative); Leukocyte Esterase Urine Small (1+) (Negative); Nitrite Urine Negative (Negative); Specific Gravity - Urine 1.015 (1.005-1.025); UMIC TRIGGER UA YES; Urine Blood Trace (Negative); Urine Ketones Negative (Negative); Urine Protein Negative (Neg-Trace)
[2023-03-18 11:51] LABS: Bacteria Urine None Seen (None Seen); Calcium Oxalate Crystals Urine Present; Hyaline Casts Urine 0-2 /LPF (0-2); Squamous Epithelial Cell Urine 0-2 /HPF (0-2)
== END 2023-03-17 15:29 | disposition home or self-care (01) ==
LOC: HO.LAB 15:28
PROVIDERS: Visit Provider Family Medicine
DX: R30.0 Dysuria (principal)
CPT/HCPCS: 81001; 87086

== ENCOUNTER 2023-05-14 16:32 | Outpatient (AMB) | payer OTHER, SELFPAY ==
--- NOTE | 2023-05-14 16:33 | A.OFFPC_ITS ---
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 Accompanied by: Self / Same As Patient Allergies smallpox vaccine,live Allergy (Severe, Verified 05/14/23 16:34) seizures, grand mal aspirin Allergy (Mild, Verified 05/14/23 16:34) Hives bupropion [From Wellbutrin] Allergy (Mild, Verified 05/14/23 16:34) Palpitations morphine Allergy (Mild, Verified 05/14/23 16:34) Rash Tobacco use date assessed: 12/19/22 Dental Screening Dental Screen Date: 05/14/23 Did you have a dental visit in the last 12 months?: Yes Did you have a dental problem in the last 6 months where you did not have access to dental care?: No Was dental information given to patient?: Patient has dentist HPI f/u elevated liver enzymes HPI Details 57 y/o female presents to f/u on weight and blood sugars. Blood pressure today is 132/78. Her A1c about 2 months ago was 5.9% in February. She had been checking her blood sugars at home - ranged from 89 to 110s. [facility] Medical History Depression Fibroids History of palpitations Other and unspecified hyperlipidemia Ovarian torsion Surgical History History of arthroscopy of left knee History of D&C History of laparoscopic appendectomy History of laparoscopic cholecystectomy History of tonsillectomy Hx of colonoscopy Family History Father High cholesterol Mother HTN (hypertension) Maternal Aunt History of breast cancer Other Mental health disorder Social History Housing: Apartment Alcohol intake: current Alcohol intake frequency: holidays/special occasions only Patient Tobacco Use Status: Never used Tobacco e-Cigarette/Vaping Use: Never Used Second Hand Smoke Exposure: Yes service: No 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 Benjamin Lr, Mer Langley, Alex Odonnell and colleagues, with an educational mi from [employer]. Review of Systems Const Denies chills, Denies fatigue, Denies fever(s), Denies headache(s) and Denies weakness ENT Denies dizziness and Denies headache(s) Card Denies chest pain, Denies lightheadedness, Denies dyspnea and Denies other (Palpitations) Resp Denies cough, Denies dyspnea, Denies wheezing and Denies other ( shortness of breath) Musc Denies numbness and Denies tingling Neuro Denies dizziness, Denies headache(s), Denies numbness, Denies tingling, Denies paresthesias and Denies weakness Psych Denies anxiety and Denies depression Endo Denies fatigue Aller/Immun Denies wheezing Physical exam (Primary Care) Vital Signs: Last Vital Signs Pulse 85 05/14/23 16:35 BP 132/78 05/14/23 16:35 Pulse Ox 96 05/14/23 16:35 BMI result Body Mass Index 45.3 Tobacco/Smoking Status: Tobacco use Status Tobacco use date assessed 12/19/22 05/14/23 16:36 Patient Tobacco Use Status Never used Tobacco 05/14/23 16:36 e-Cigarette/Vaping Use Never Used 05/14/23 16:36 Thrive Assessment: Date of Thrive Assessment Date Thrive assessed 08/06/21 05/14/23 16:36 Const General: no acute distress and well developed Nutritional Appearance: obese morbidly obese Orientation/consciousness: patient oriented x3 HENMT Head: Yes normocephalic and Yes atraumatic Eyes General: appearance normal, both eyes and all related structures Pupils: Equal, round and reactive pupils present EOM: EOMs intact bilaterally Resp Effort & Inspection: normal respiratory effort Auscultation: clear to auscultation bilaterally Cardio Rate: regular rate Rhythm: regular rhythm Heart sounds: S1 normal heart sound present, S2 normal heart sound present, no gallops, no murmurs and no rubs Neuro General: patient oriented x3 and gait normal Cranial nerves: Yes Equal, round and reactive pupils present Psych Affect: normal affect Assessment and Plan Assessment & Plan (1) Morbid obesity: Code(s): E66.01 - Morbid (severe) obesity due to excess calories Plan: She has lost a few lbs Encouraged ongoing diet Encouraged exercise May benefit from a GLP-1 med as she also has hyperglycemia/prediabetes Starting Byetta which her insurance says it will cover. Risks/benefits of medication were discussed with the patient She monitors her blood sugars at home Will check an A1c with her next lab work (2) Pre-diabetes: Code(s): R73.03 - Prediabetes Plan: As above (3) Elevated liver enzymes: Code(s): R74.8 - Abnormal levels of other serum enzymes Plan: Mildly elevated liver enzymes and she will get her labs drawn prior to our next visit to recheck this (4) Elevated blood pressure reading: Code(s): R03.0 - Elevated blood-pressure reading, without diagnosis of hypertension Plan: Blood pressure in prehypertensive range We will continue to follow this Encouraged diet lower in sodium and encouraged weight loss Medications: New exenatide (Byetta) 5 mcg (0.02 mL) subcut DAILY 0.6 mL 2RF 30 days E66.01 - Morbid (severe) obesity due to excess calories, R73.03 - Prediabetes, R73.9 - Hyperglycemia, unspecified Coding Level of Care Code Est Pt Level 4 (60178) Diagnoses Morbid obesity E66.01 Pre-diabetes R73.03 Elevated liver enzymes R74.8 Elevated blood pressure reading R03.0
[2023-05-14 16:35] VITALS: BP 132/78; PULSE 85; O2SAT 96; BMI 45.3
== END 2023-05-14 17:03 | disposition home or self-care (01) ==
PROVIDERS: Visit Provider Family Medicine
DX: R73.03 Prediabetes (principal); E66.01 Morbid (severe) obesity due to excess calories; Z68.42 Body mass index [BMI] 45.0-49.9, adult; R74.8 Abnormal levels of other serum enzymes; R03.0 Elevated blood-pressure reading, without diagnosis of hypertension
CPT/HCPCS: 99214

== ENCOUNTER 2023-06-15 07:25 | Outpatient (REF) | payer OTHER, SELFPAY ==
[2023-06-15 08:26] LABS: Estimated Average Glucose 111 mg/dL; Hemoglobin A1c % 5.5 % (<6.0)
[2023-06-15 08:52] LABS: Alanine Aminotransferase 39 U/L (0-31); Albumin Level 4.5 g/dL (3.5-5.0); Alkaline Phosphatase 75 U/L (39-117); Anion Gap 13 (12-20); Aspartate Amino Transferase 34 U/L (5-31); Bilirubin Total 0.5 mg/dL (0.0-1.0); Blood Urea Nitrogen 11 mg/dL (9-16); Calcium 10.3 mg/dL (8.4-10.2); Carbon Dioxide 30 mmol/L (22-29); Chloride 103 mmol/L (96-108); Estimated Glomerular Filt Rate > 60; Glucose Random 108 mg/dL (60-115); Potassium 4.5 mmol/L (3.3-5.1); Sodium 141 mmol/L (135-145); Total Protein 7.5 g/dL (6.5-8.0)
== END 2023-06-15 07:26 | disposition home or self-care (01) ==
LOC: HO.LAB 07:25
PROVIDERS: PCP Family Medicine; Visit Provider Family Medicine
DX: R73.01 Impaired fasting glucose (principal); R74.8 Abnormal levels of other serum enzymes
CPT/HCPCS: 36415; 80053; 83036

== ENCOUNTER 2023-06-16 15:35 | Outpatient (AMB) | payer OTHER, SELFPAY ==
[2023-06-16 15:49] VITALS: BP 126/72; PULSE 66; O2SAT 97; BMI 45.0
--- NOTE | 2023-06-16 15:49 | A.OFFPC_ITS ---
Vital Signs 06/16/23 15:49 Height 5 ft 3 in Weight 254 lb BMI 45.0 BP 126/72 Blood Pressure Location Lt brachial Position Sitting Pulse 66 Pulse Source Pulse Oximeter Pulse Oximetry (%) 97 Oxygen Delivery Method Room Air Intake Visit Reasons: f/u pre-diabetes and liver enzymes Intake Note: Patient is here to follow up on A1C and liver enzymes. Patient would like albuterol rescue inhaler. Allergies smallpox vaccine,live Allergy (Severe, Verified 06/16/23 15:51) seizures, grand mal aspirin Allergy (Mild, Verified 06/16/23 15:51) Hives bupropion [From Wellbutrin] Allergy (Mild, Verified 06/16/23 15:51) Palpitations morphine Allergy (Mild, Verified 06/16/23 15:51) Rash Tobacco use date assessed: 06/16/23 Dental Screening Dental Screen Date: 06/16/23 Did you have a dental visit in the last 12 months?: No Did you have a dental problem in the last 6 months where you did not have access to dental care?: No Was dental information given to patient?: Patient declined HPI f/u pre-diabetes and liver enzymes HPI Details 57 y/o female presents to f/u elevated liver enzymes and pre-diabetes as well as obesity. Have tried to prescribed multiple medications that would help with both her blood sugars and weight and these have been declined by her insurance. She had a letter from her insurance stating that they would cover Byetta so we will try this. Risks/benefits of medications were discussed. Labs were drawn 06/15/23. Reviewed labs with pt. A1c 5.5%. Elevated liver enzymes - AST 34 and ALT 39. She reports she has not started taking Byetta yet as she states her insurance did not want to cover this. [facility], [facility] Medical History Depression Fibroids History of palpitations Other and unspecified hyperlipidemia Ovarian torsion Surgical History History of arthroscopy of left knee History of D&C History of laparoscopic appendectomy History of laparoscopic cholecystectomy History of tonsillectomy Hx of colonoscopy Family History Father High cholesterol Mother HTN (hypertension) Maternal Aunt History of breast cancer Other Mental health disorder Social History Housing: Apartment Alcohol intake: current Alcohol intake frequency: holidays/special occasions only Patient Tobacco Use Status: Never used Tobacco e-Cigarette/Vaping Use: Never Used Second Hand Smoke Exposure: Yes service: No 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 Benjamin Lr, Mer Langley, Alex Odonnell and colleagues, with an educational mi from [employer]. Review of Systems Const Denies chills, Denies fatigue, Denies fever(s), Denies headache(s) and Denies weakness ENT Denies dizziness and Denies headache(s) Card Denies chest pain, Denies lightheadedness, Denies dyspnea and Denies other (Palpitations) Resp Denies cough, Denies dyspnea, Denies wheezing and Denies other ( shortness of breath) Musc Denies numbness and Denies tingling Neuro Denies dizziness, Denies headache(s), Denies numbness, Denies tingling, Denies paresthesias and Denies weakness Psych Denies anxiety and Denies depression Endo Denies fatigue Aller/Immun Denies wheezing Physical exam (Primary Care) Vital Signs: Last Vital Signs Pulse 66 06/16/23 15:49 BP 126/72 06/16/23 15:49 Pulse Ox 97 06/16/23 15:49 Oxygen Delivery Method Room Air 06/16/23 15:49 BMI result Body Mass Index 45.0 Tobacco/Smoking Status: Tobacco use Status Tobacco use date assessed 06/16/23 06/16/23 16:01 Patient Tobacco Use Status Never used Tobacco 06/16/23 16:01 e-Cigarette/Vaping Use Never Used 06/16/23 16:01 Thrive Assessment: Date of Thrive Assessment Date Thrive assessed 08/06/21 06/16/23 16:01 Const General: no acute distress and well developed Nutritional Appearance: obese morbidly obese Orientation/consciousness: patient oriented x3 HENMT Head: Yes normocephalic and Yes atraumatic Eyes General: appearance normal, both eyes and all related structures Pupils: Equal, round and reactive pupils present EOM: EOMs intact bilaterally Resp Effort & Inspection: normal respiratory effort Auscultation: clear to auscultation bilaterally Cardio Rate: regular rate Rhythm: regular rhythm Heart sounds: S1 normal heart sound present, S2 normal heart sound present, no gallops, no murmurs and no rubs Neuro General: patient oriented x3 and gait normal Cranial nerves: Yes Equal, round and reactive pupils present Psych Affect: normal affect Assessment and Plan Assessment & Plan (1) Pre-diabetes: Code(s): R73.03 - Prediabetes Plan: A1c improving and patient is working on a diet lower in sugars and starches Encouraged further weight loss and exercise (2) Morbid obesity: Code(s): E66.01 - Morbid (severe) obesity due to excess calories Plan: BMI greater than 40 Referred to weight management program at patient request (3) Elevated liver enzymes: Code(s): R74.8 - Abnormal levels of other serum enzymes Plan: Mildly elevated liver enzymes. Will follow. If they remain elevated or are rising, will recheck liver ultrasound. Patient notes that she had prior ultrasound many years ago and has a diagnosis of non alcoholic hepatic steatosis. Encouraged further weight loss Orders: Orders SARS-CoV2/FLU/RSV Today R09.89 - Other specified symptoms and signs involving the circulatory and respiratory systems Referrals Medical Weight Management Referral E66.01 - Morbid (severe) obesity due to excess calories, K76.0 - Fatty (change of) liver, not elsewhere classified, R73.03 - Prediabetes, Z68.41 - Body mass index [BMI] 40.0-44.9, adult Coding Level of Care Code Est Pt Level 4 (43081) Diagnoses Pre-diabetes R73.03 Morbid obesity E66.01 Elevated liver enzymes R74.8
== END 2023-06-16 16:51 | disposition home or self-care (01) ==
PROVIDERS: PCP Family Medicine; Visit Provider Family Medicine
DX: R73.03 Prediabetes (principal); E66.01 Morbid (severe) obesity due to excess calories; R74.8 Abnormal levels of other serum enzymes; Z68.42 Body mass index [BMI] 45.0-49.9, adult
CPT/HCPCS: 99214

== ENCOUNTER 2023-06-16 16:28 | Outpatient (REF) | payer OTHER, SELFPAY | END 2023-06-16 16:29 | disposition home or self-care (01) | LOC: HO.LNP 16:28 | PROVIDERS: Visit Provider Family Medicine | DX: Z13.89 Encounter for screening for other disorder (principal) ==

== ENCOUNTER 2023-06-30 08:09 | Outpatient (AMB) | payer OTHER, SELFPAY ==
--- NOTE | 2023-06-30 08:16 | A.OFFVIS_ITS ---
Intake Vital Signs 06/30/23 08:17 Height 5 ft 3 in Weight 254 lb BMI 45.0 Intake Visit Reasons: Right knee pain- re injured after last injection Intake Note: Cherrie is a 57 year old female who presents today for a follow up for her right knee pain. Patient reports she thinks that she re injured her right knee by slipping on the pavement when it was raining out and she stepped hard on the ground. She states that her last injection did provide her relief. Shes that her pain is on both sides of the knee. Allergies smallpox vaccine,live Allergy (Severe, Verified 06/30/23 08:16) seizures, grand mal aspirin Allergy (Mild, Verified 06/30/23 08:16) Hives bupropion [From Wellbutrin] Allergy (Mild, Verified 06/30/23 08:16) Palpitations morphine Allergy (Mild, Verified 06/30/23 08:16) Rash HPI Right knee pain- re injured after last injection HPI Details 57-year-old female who presents in the o [facility] today for a follow up of right knee pain. The patient had a cortisone injection in the right knee on 09/29/2022, which gave her relief. She reports she re-injured the right knee status post slipping on the pavement when it was raining after stepping hard on the ground. She claims to have pain on the medial and lateral aspects of the right knee. History of two left knee for a torn meniscus ~ done at [facility]. [facility] Medical History Depression Fibroids History of palpitations Other and unspecified hyperlipidemia Ovarian torsion Surgical History History of arthroscopy of left knee History of D&C History of laparoscopic appendectomy History of laparoscopic cholecystectomy History of tonsillectomy Hx of colonoscopy Family History Father High cholesterol Mother HTN (hypertension) Maternal Aunt History of breast cancer Other Mental health disorder Social History Housing: Apartment Alcohol intake: current Alcohol intake frequency: holidays/special occasions only Patient Tobacco Use Status: Never used Tobacco e-Cigarette/Vaping Use: Never Used Second Hand Smoke Exposure: Yes service: No 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 occupational exposures/hazards: No Cognitive needs: No Hearing needs: No Vision needs: Yes (Glasses) Review of Systems Const All systems reviewed & are unremarkable except as noted in HPI and below Physical Exam Vital Signs: BMI result Body Mass Index 45.0 Const General: cooperative, healthy appearing and no acute distress Resp Effort & Inspection: normal respiratory effort and able to speak in complete sentences Cardio Rate: regular rate Peripheral pulses: Peripheral pulses 2+ throughout GI Palpation (GI): Soft to palpation Skin Lesions: no lesions Rashes: no rashes Extrem Other: Right knee: Normal to inspection. No ecchymosis, erythema, or joint effusion. No tenderness to palpation to the medial or lateral joint lines. Full knee extension and flexion. Negative Helen's. Crepitus felt with ROM. NVI. Office Procedures Joint Injection/Drain Joint Injection/Drain Primary Site: right knee Prep: site was prepped using aseptic technique, ethochloride spray was applied and injection warnings given Injected: 80 mg of, DepoMedrol and with 8 mL of (2% plain lido) Approach Used: anterolateral Procedure: The patient tolerated the procedure well, but had some pain with the injection and there was some relief with the local anesthesia Coding 68987 - Large joint Procedure code (CPT) selection complete Results Reviewed Results Reviewed: 06/30/23 08:34 Lidocaine HCl 2 % MPF [Xylocaine 2 % MPF] 5 ml .ROUTE .STK-MED ONE methylPREDNISolone acetate [DEPO-MedroL] 80 mg .ROUTE .STK-MED ONE Assessment & Plan Assessment & Plan (1) Osteoarthritis of right knee: Code(s): M17.11 - Unilateral primary osteoarthritis, right knee Qualifiers: Osteoarthritis type: unspecified Qualified Code(s): M17.11 - Unilateral primary osteoarthritis, right knee Plan Ms. Yusuf is a 57-year-old female who presents in the office today for a follow up of right knee pain. The patient had a cortisone injection in the right knee on 09/29/2022, which gave her relief. She reports she re-injured the right knee status post slipping on the pavement when it was raining after stepping hard on the ground. She claims to have pain on the medial and lateral aspects of the right knee. History of two left knee for a torn meniscus ~ done at [facility]. The patient is pre-diabetic but does not taking any medication for this. The patient was offered a cortisone injection in the right knee with 80 mg of DepoMedrol. The patient was explained the risk, benefits, and alternatives to receiving this injection. After receiving consent for the injection, the patient had the procedure done while in office today. The patient tolerated the procedure well with no complications. Due to the patient?s history of diabetes, they were instructed to monitor her blood glucose level. The patient was informed that they could see a rise in their numbers and if the numbers became too high, they were instructed to call their PCP. The patient was also informed that they could have facial flushing as a side effect of the injection but this will pass. Follow up will be PRN, or sooner if needed. X-rays of the right knee which were obtained while in the office today and were reviewed by me, Amy Wood PA-C, revealed osteoarthritis. Orders: Orders XR knee RT 2V Today M25.569 - Pain in unspecified knee XR knee standing BI Today M25.569 - Pain in unspecified knee Patient Instructions: Scribed for Amy Wood PA-C by Cherrie Gill medical support assistant, on 06/30/2023 at 8:20 am, EST. Coding Level of Care Code Est Pt Level 4 (04856) Diagnoses Osteoarthritis of right knee, unspecified osteoarthritis type M17.11 Osteoarthritis type: unspecified CPT Codes Coding - 21544 Large joint: 73891 - Large joint ([id number])
[2023-06-30 08:17] VITALS: BMI 45.0
== END 2023-06-30 08:55 | disposition home or self-care (01) ==
PROVIDERS: PCP Family Medicine; Visit Provider Physician Assistant
DX: M17.11 Unilateral primary osteoarthritis, right knee (principal)
CPT/HCPCS: 20610; 99214

== ENCOUNTER 2023-06-30 08:27 | Outpatient (REF) | payer OTHER, SELFPAY ==
--- NOTE | ~2023-06-30 | XR_ITS ---
EXAMINATION: XR BOTH KNEES AP STANDING XR KNEE, RIGHT CLINICAL INFORMATION: Pain in the right knee. COMPARISON: 09/29/2022. TECHNIQUE: Standing AP view of both knees and lateral and sunrise views of the right knee. FINDINGS: LEFT KNEE: Mild osteoarthritis in the lateral compartment with marginal osteophytes and chondrocalcinosis. Slightly increased valgus angulation. No acute soft tissue findings. RIGHT KNEE: Mild patellofemoral compartment osteoarthritis with marginal osteophytes, subchondral cystic change, and cortical irregularity at the patella. Small joint effusion. Small marginal osteophytes in the lateral compartment. Medial and lateral compartment joint spaces appear normal. No fractures. Soft tissues are unremarkable. XR/XR knee RT 2V IMPRESSION: 1. Mild patellofemoral compartment osteoarthritis in the right knee with a small joint effusion. 2. Minimal bilateral lateral compartment osteoarthritis.
--- NOTE | ~2023-06-30 | XR_ITS ---
EXAMINATION: XR BOTH KNEES AP STANDING XR KNEE, RIGHT CLINICAL INFORMATION: Pain in the right knee. COMPARISON: 09/29/2022. TECHNIQUE: Standing AP view of both knees and lateral and sunrise views of the right knee. FINDINGS: LEFT KNEE: Mild osteoarthritis in the lateral compartment with marginal osteophytes and chondrocalcinosis. Slightly increased valgus angulation. No acute soft tissue findings. RIGHT KNEE: Mild patellofemoral compartment osteoarthritis with marginal osteophytes, subchondral cystic change, and cortical irregularity at the patella. Small joint effusion. Small marginal osteophytes in the lateral compartment. Medial and lateral compartment joint spaces appear normal. No fractures. Soft tissues are unremarkable. XR/XR knee standing BI IMPRESSION: 1. Mild patellofemoral compartment osteoarthritis in the right knee with a small joint effusion. 2. Minimal bilateral lateral compartment osteoarthritis.
== END 2023-06-30 08:28 | disposition home or self-care (01) ==
LOC: HO.HOSX 08:27
PROVIDERS: Visit Provider Physician Assistant
DX: M17.11 Unilateral primary osteoarthritis, right knee (principal)
CPT/HCPCS: 20610; 73560; 73565; J1040

== ENCOUNTER 2023-06-30 15:39 | Outpatient (AMB) | payer OTHER, SELFPAY ==
[2023-06-30 15:49] VITALS: BP 124/70; BMI 44.6
--- NOTE | 2023-06-30 15:49 | A.OFFVIS_ITS ---
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 No complaints. The patient have history of myomatous uterus in the past, no pelvic pain pressure abnormal uterine bleeding P Last Pap/HPV was in 08/08 was negative Last Mammogram was BI-RADS 1 in 10/09 Last Colonoscopy was done in 12/10, the recommendation was to repeat in 3-5 years [facility] Medical History History of palpitations Depression Fibroids Ovarian torsion Other and unspecified hyperlipidemia Surgical History Hx of colonoscopy History of D&C History of tonsillectomy History of arthroscopy of left knee History of laparoscopic appendectomy History of laparoscopic cholecystectomy Family History Father High cholesterol Mother HTN (hypertension) Maternal Aunt History of breast cancer Other Mental health disorder Social History Housing: Apartment Alcohol intake: current Alcohol intake frequency: holidays/special occasions only Patient Tobacco Use Status: Never used Tobacco e-Cigarette/Vaping Use: Never Used Second Hand Smoke Exposure: Yes service: No 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 occupational exposures/hazards: No Cognitive needs: No Hearing needs: No Vision needs: Yes (Glasses) Female Reproductive History Menstrual control method: permanent sterilization Total pregnancies: 2 Full term: 2 Number of Living Children: 2 Date of last pap smear: 08/14/21 Date of Mammogram: 10/03/22 Review of Systems Const All systems reviewed & are unremarkable except as noted in HPI and below Card Reports as per HPI Resp Reports as per HPI GI Reports as per HPI and Reports no additional complaints Reports as per HPI Physical Exam Const General: cooperative, healthy appearing and comfortable Chest Chest palpation & inspection: normal inspection of the chest and normal palpation of entire chest wall Breast/axilla inspection: normal inspection of the breasts and normal inspection of the axillae Breast/axilla palpation: normal palpation of the breasts, normal palpation of the axillae and no axillary lymphadenopathy Resp Effort & Inspection: normal respiratory effort Auscultation: clear to auscultation bilaterally Percussion: percussion normal Cardio Palpation: normal PMI Rate: regular rate Rhythm: regular rhythm Heart sounds: no murmurs and no rubs Peripheral pulses: Peripheral pulses 2+ throughout GI Inspection: Yes normal to inspection Palpation (GI): Soft to palpation, nontender, no guarding, not rigid and No hepatosplenomegaly present Percussion: Yes normal to percussion Auscultation: normal bowel sounds Rectal Exam - Female: deferred General: Yes bladder normal to palpation External Female Exam: No lesion Speculum Exam - Vagina: normal appearance of the vagina, normal palpation, normal vaginal discharge and not erythematous Speculum Exam - Cervix: normal appearance of the cervix and normal palpation Bimanual exam- vagina & uterus: normal bimanual exam, normal palpation, uterine size normal, bladder normal to palpation, consistency normal and normal palpation Bimanual Exam- Adnexa, other: normal adnexae, no masses and no tenderness Assessment & Plan Assessment & Plan (1) Well woman exam: Code(s): Z01.419 - Encounter for gynecological examination (general) (routine) without abnormal findings Plan: Co testing not indicated this year. Counseled the patient about the recommended dietary allowance of 1200 mg of Calcium & 600 IU of vitamin D. Mammogram ordered for 10/10 . The patient was instructed to perform monthly self-breast exams and schedule annual exam in a year; all questions answered and the patient verbalized understanding. (2) Uterine myoma: Code(s): D25.9 - Leiomyoma of uterus, unspecified Plan: Will order pelvic ultrasound compare the size of the uterine myomas to previous ultrasound findings. Instructions given the patient to schedule a 2 week ultrasound follow-up appointment. All questions answered, the patient verbalized understanding. Orders: Orders MM screening mammo BI 3 Months Z12.31 - Encounter for screening mammogram for malignant neoplasm of breast US pelvic and transvaginal Today D25.9 - Leiomyoma of uterus, unspecified Coding Level of Care Code Est Pt Prev Care 40-64y(87870) Diagnoses Well woman exam Z01.419 Uterine myoma D25.9
== END 2023-06-30 16:13 | disposition home or self-care (01) ==
PROVIDERS: PCP Family Medicine; Visit Provider Obstetrics & Gynecology
DX: Z01.419 Encounter for gynecological examination (general) (routine) without abnormal findings (principal); D25.9 Leiomyoma of uterus, unspecified
CPT/HCPCS: 99396

== ENCOUNTER 2023-07-23 15:57 | Outpatient (REF) | payer OTHER, SELFPAY | END 2023-07-23 15:58 | disposition home or self-care (01) | LOC: HO.US 15:57 | PROVIDERS: PCP Family Medicine; Visit Provider Obstetrics & Gynecology | DX: D25.9 Leiomyoma of uterus, unspecified (principal) | CPT/HCPCS: 76830; 76856 ==

== ENCOUNTER 2023-07-27 08:55 | Outpatient (AMB) | payer OTHER, SELFPAY ==
--- NOTE | 2023-07-27 08:56 | MHC.OFFWIV ---
Intake Vital Signs 07/27/23 08:57 Weight 248 lb 6 oz BP 126/74 Blood Pressure Location Rt brachial Position Sitting Pulse 72 Pulse Source Pulse Oximeter Temp 97.8 F Temp Source Temporal Artery Scan Pulse Oximetry (%) 97 Oxygen Delivery Method Room Air Intake Visit Reasons: EP Flu like symptoms (masked) Intake Note: Patient here for cough, congestion, sore throat, poor appetite, nausea which started thursday. Patient Tobacco Use Status: Never used Tobacco Allergies smallpox vaccine,live Allergy (Severe, Verified 07/27/23 09:34) seizures, grand mal aspirin Allergy (Mild, Verified 07/27/23 09:34) Hives bupropion [From Wellbutrin] Allergy (Mild, Verified 07/27/23 09:34) Palpitations morphine Allergy (Mild, Verified 07/27/23 09:34) Rash Medication List - Last Reconciled 07/27/23 by Rahul Holder MD acetaminophen 1,000 mg PO Q6H PRN albuterol sulfate 90 mcg/actuation 1 inh inhalation Q6H PRN 1 month azithromycin take 500 mg today (day 1), then 250 mg for 4 days (days 2-5) PO blood sugar diagnostic (FreeStyle Lite Strips) test blood sugar once a day, 90 days blood-glucose meter (FreeStyle Lite Meter kit) test blood sugar once a day, duration 999 days cyclobenzaprine 10 mg PO TID PRN duloxetine 20 mg PO DAILY ibuprofen 800 mg PO Q8H lamotrigine (Lamictal) 150 mg PO DAILY lancets (FreeStyle Lancets) As directed, 90 days omeprazole 20 mg PO DAILY 90 days pramipexole 0.25 mg PO BEDTIME rosuvastatin 20 mg PO DAILY Do you need a note to return to daycare/school/sports/work: No HPI EP Flu like symptoms (masked) HPI Details Patient presents for a sick visit. Reporting symptoms of sinus congestion, sore throat and difficulty swallowing. Low-grade fever. No family member is sick. No recent travel. Patient reports symptoms of malaise and fatigue. Did not test for COVID at home. [facility] Medical History History of palpitations Depression Fibroids Ovarian torsion Other and unspecified hyperlipidemia Surgical History Hx of colonoscopy History of D&C History of tonsillectomy History of arthroscopy of left knee History of laparoscopic appendectomy History of laparoscopic cholecystectomy Family History Father High cholesterol Mother HTN (hypertension) Maternal Aunt History of breast cancer Other Mental health disorder Social History Housing: Apartment Alcohol intake: current Alcohol intake frequency: holidays/special occasions only Patient Tobacco Use Status: Never used Tobacco e-Cigarette/Vaping Use: Never Used Second Hand Smoke Exposure: Yes service: No 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 occupational exposures/hazards: No Cognitive needs: No Hearing needs: No Vision needs: Yes (Glasses) Physical Exam Vital Signs: Last Vital Signs Temp 97.8 F 07/27/23 08:57 Pulse 72 07/27/23 08:57 BP 126/74 07/27/23 08:57 Pulse Ox 97 07/27/23 08:57 Oxygen Delivery Method Room Air 07/27/23 08:57 Const General: cooperative and healthy appearing Nutritional Appearance: well nourished Orientation/consciousness: patient oriented x3 Limitations: no limitations HEENT Head: Yes normal to inspection Eyes General: appearance normal, both eyes and all related structures Neck Neck: Yes normal visual inspection Chest Chest palpation & inspection: normal palpation of entire chest wall Resp Effort & Inspection: normal respiratory effort Neuro General: patient oriented x3 Results AMB Rapid Strep AMB Rapid Strep Negative Last Edit by MARCIANO Marcum on 07/27/23 09:06 Results Reviewed Results Reviewed: Laboratory Last Values Strep Scn [facility] Negative 07/27/23 09:05 Assessment & Plan Assessment & Plan (1) Upper respiratory tract infection: Code(s): J06.9 - Acute upper respiratory infection, unspecified Qualifiers: URI type: unspecified URI Qualified Code(s): J06.9 - Acute upper respiratory infection, unspecified Plan Antibiotics ordered. Increase fluid intake. Tylenol for aches and pains. If symptoms worsen, follow-up here for a recheck. Orders: Orders AMB Rapid Strep Screen Today Z13.9 - Encounter for screening, unspecified SARS-CoV2/FLU/RSV Today R43.9 - Unspecified disturbances of smell and taste Medications: New azithromycin take 500 mg today (day 1), then 250 mg for 4 days (days 2-5) PO 6 tabs 0RF Coding Level of Care Code Est Pt Level 3 (03926) Diagnoses Upper respiratory tract infection, unspecified type J06.9 URI type: unspecified URI
[2023-07-27 08:57] VITALS: BP 126/74; PULSE 72; TEMP 36.6; O2SAT 97
== END 2023-07-27 09:59 | disposition home or self-care (01) ==
PROVIDERS: PCP Family Medicine; Visit Provider Internal Medicine
DX: J06.9 Acute upper respiratory infection, unspecified (principal); J02.9 Acute pharyngitis, unspecified
CPT/HCPCS: 87880; 99213

== ENCOUNTER 2023-07-27 10:51 | Outpatient (REF) | payer OTHER, SELFPAY | END 2023-07-27 10:52 | disposition home or self-care (01) | LOC: HO.LNP 10:51 | PROVIDERS: Visit Provider Family Medicine | DX: R09.89 Other specified symptoms and signs involving the circulatory and respiratory systems (principal); Z20.828 Contact with and (suspected) exposure to other viral communicable diseases | CPT/HCPCS: 0241U ==

== ENCOUNTER 2023-08-10 09:32 | Outpatient (AMB) | payer OTHER, SELFPAY ==
--- NOTE | 2023-08-10 10:43 | AM.OFFWIN_ITS ---
Intake Vital Signs 08/10/23 10:47 Height 5 ft 3 in Weight 250 lb 4 oz BMI 44.3 BP 130/80 Blood Pressure Location Lt brachial Position Sitting Pulse 73 Pulse Source Pulse Oximeter Temp 98.1 F Temp Source Oral Pulse Oximetry (%) 96 Oxygen Delivery Method Room Air Intake Visit Reasons: EP, cough (masked) Intake Note: pt is here for c/o cough, was diagnosed with covid back on 07/28/23, states she only took 4 doses of paxlovid due to the taste, patient states she has bad cough and feels run down Patient Tobacco Use Status: Never used Tobacco Allergies smallpox vaccine,live Allergy (Severe, Verified 08/10/23 11:18) seizures, grand mal aspirin Allergy (Mild, Verified 08/10/23 11:18) Hives bupropion [From Wellbutrin] Allergy (Mild, Verified 08/10/23 11:18) Palpitations morphine Allergy (Mild, Verified 08/10/23 11:18) Rash Medication List - Last Reconciled 08/10/23 by Rahul Holder MD acetaminophen 1,000 mg PO Q6H PRN albuterol sulfate 90 mcg/actuation 1 inh inhalation Q6H PRN 1 month blood sugar diagnostic (FreeStyle Lite Strips) test blood sugar once a day, 90 days blood-glucose meter (FreeStyle Lite Meter kit) test blood sugar once a day, duration 999 days cyclobenzaprine 10 mg PO TID PRN duloxetine 20 mg PO DAILY ibuprofen 800 mg PO Q8H lamotrigine (Lamictal) 150 mg PO DAILY lancets (FreeStyle Lancets) As directed, 90 days omeprazole 20 mg PO DAILY 90 days pramipexole 0.25 mg PO BEDTIME rosuvastatin 20 mg PO DAILY Do you need a note to return to daycare/school/sports/work: Yes HPI EP, cough (masked) HPI Details 57-year-old female presents to the [facility] for a sick visit. Patient is presenting for a follow-up for her cough symptoms. She was diagnosed with COVID earlier this month. Subsequently she is having an irritating cough which is nonproductive. Mild shortness of breath. She did not complete the Paxlovid course due to side effects. [facility] Medical History History of palpitations Depression Fibroids Ovarian torsion Other and unspecified hyperlipidemia Surgical History Hx of colonoscopy History of D&C History of tonsillectomy History of arthroscopy of left knee History of laparoscopic appendectomy History of laparoscopic cholecystectomy Family History Father High cholesterol Mother HTN (hypertension) Maternal Aunt History of breast cancer Other Mental health disorder Social History Housing: Apartment Alcohol intake: current Alcohol intake frequency: holidays/special occasions only Patient Tobacco Use Status: Never used Tobacco e-Cigarette/Vaping Use: Never Used Second Hand Smoke Exposure: Yes service: No 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 occupational exposures/hazards: No Cognitive needs: No Hearing needs: No Vision needs: Yes (Glasses) Physical Exam Vital Signs: Last Vital Signs Temp 98.1 F 08/10/23 10:47 Pulse 73 08/10/23 10:47 BP 130/80 08/10/23 10:47 Pulse Ox 96 08/10/23 10:47 Oxygen Delivery Method Room Air 08/10/23 10:47 BMI result Body Mass Index 44.3 Const General: cooperative and healthy appearing Nutritional Appearance: well nourished Orientation/consciousness: patient oriented x3 Limitations: no limitations HEENT Head: Yes normal to inspection Eyes General: appearance normal, both eyes and all related structures Neck Neck: Yes normal visual inspection Chest Chest palpation & inspection: normal palpation of entire chest wall Resp Effort & Inspection: normal respiratory effort Neuro General: patient oriented x3 Assessment & Plan Assessment & Plan (1) Acute bronchitis: Code(s): J20.9 - Acute bronchitis, unspecified Orders: Orders XR chest 2V Today R05.9 - Cough, unspecified Patient Instructions: Chest x-ray images personally reviewed by me. No infiltrate seen. Prednisone and cough medicine with codeine called in. Coding Level of Care Code Est Pt Level 4 (75168) Diagnoses Acute bronchitis J20.9
[2023-08-10 10:47] VITALS: BP 130/80; PULSE 73; TEMP 36.7; O2SAT 96; BMI 44.3
== END 2023-08-10 12:54 | disposition home or self-care (01) ==
PROVIDERS: PCP Family Medicine; Visit Provider Internal Medicine
DX: J20.9 Acute bronchitis, unspecified (principal)
CPT/HCPCS: 99214

== ENCOUNTER 2023-08-10 11:18 | Outpatient (REF) | payer OTHER, SELFPAY ==
--- NOTE | ~2023-08-10 | XR_ITS ---
EXAMINATION: XR CHEST CLINICAL INFORMATION: Cough COMPARISON: None available. TECHNIQUE: 2 views of the chest were obtained. FINDINGS: Lungs are well-inflated and clear. Trachea is midline in position. No interstitial disease, consolidation or mass. No pleural effusion or pneumothorax. Cardiac silhouette and pulmonary vessels are normal in size. The mediastinum and [place] have normal contour. Mild discovertebral degenerative changes of the thoracic spine. XR/XR chest 2V IMPRESSION: No acute cardiopulmonary abnormality. No evidence of pneumonia.
== END 2023-08-10 11:19 | disposition home or self-care (01) ==
LOC: HO.HMGCX 11:18
PROVIDERS: PCP Family Medicine; Visit Provider Internal Medicine
DX: R05.9 Cough, unspecified (principal)
CPT/HCPCS: 71046

== ENCOUNTER 2023-08-31 15:31 | Outpatient (AMB) | payer OTHER, SELFPAY ==
--- NOTE | 2023-08-31 15:42 | MHC.OFFVIS ---
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: No Information Interpreted: non-clinical & clinical Accompanied by: Self / Same As Patient Allergies smallpox vaccine,live Allergy (Severe, Verified 08/31/23 15:45) seizures, grand mal aspirin Allergy (Mild, Verified 08/31/23 15:45) Hives bupropion [From Wellbutrin] Allergy (Mild, Verified 08/31/23 15:45) Palpitations morphine Allergy (Mild, Verified 08/31/23 15:45) Rash Post menopausal: Yes HPI HPI Comments History of Present Illness Details Presenting for ultrasound follow-up regarding myomas previously seen on pelvic ultrasound done in 09/08, no pelvic pressure or pain or vaginal bleeding. Ultrasound done recently showed the following: Uterus: The uterus is anteverted and anteflexed and enlarged measuring 9.9 x 7.2 x 7.8 cm for a volume of 291 mL. The double wall endometrial thickness is 0.8 mm. At least 4 uterine fibroids are seen. A pedunculated/subserosal fibroid at the fundus has increased in size from maximal dimension of 3.4 cm to 5.5 cm. Other smaller fibroids are seen ranging in size from 2.5 to 4.0 cm. A single large 5.7 cm fibroid seen previously is not identified with certainty on the current study. Adnexa: Only the right ovary could be visualized and measures 1.7 x 1.2 x 1.5 cm for a volume of 1.6 mL. No free fluid present in the cul-de-sac [facility] Medical History History of palpitations Depression Fibroids Ovarian torsion Other and unspecified hyperlipidemia Surgical History Hx of colonoscopy History of D&C History of tonsillectomy History of arthroscopy of left knee History of laparoscopic appendectomy History of laparoscopic cholecystectomy Family History Father High cholesterol Mother HTN (hypertension) Maternal Aunt History of breast cancer Other Mental health disorder Social History Housing: Apartment Alcohol intake: current Alcohol intake frequency: holidays/special occasions only Patient Tobacco Use Status: Never used Tobacco e-Cigarette/Vaping Use: Never Used Second Hand Smoke Exposure: Yes service: No 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 occupational exposures/hazards: No Cognitive needs: No Hearing needs: No Vision needs: Yes (Glasses) Review of Systems Const All systems reviewed & are unremarkable except as noted in HPI and below Reports as per HPI and Reports no additional complaints GI Reports no additional complaints Reports no additional complaints Physical Exam Vital Signs: Last Vital Signs BP 124/82 08/31/23 15:44 BMI result Body Mass Index 44.1 Assessment & Plan Assessment & Plan (1) Uterine myoma: Comment: Enlarging in menopause Code(s): D25.9 - Leiomyoma of uterus, unspecified Plan: Discussed with the patient the findings on pelvic ultrasound & the risk of myosarcoma; discussed with the patient the options of treatment including expectant management versus hysterectomy; the pros and cons, risks benefits of each approach were discussed with the patient including the fact that in cases of myosarcoma, surgical treatment can lead to early diagnosis and positively affects the prognosis; after further discussion, the patient decided to think about it and get back to me within coming 1-2 weeks. All questions answered, the patient verbalized understanding and agreed with the plan . (2) Endometrial thickening on ultrasound: Code(s): R93.89 - Abnormal findings on diagnostic imaging of other specified body structures Plan: Discussed with the patient endometrial thickness above 4 mm in menopause , the differential diagnosis of a thickened endometrium includes but not limited to endometrial polyp, hyperplasia or carcinoma. Explained to the patient that endometrial each thickness is less predictive of endometrial neoplasia in asymptomatic patients, i.e. those without postmenopausal uterine bleeding. The sensitivity and specificity for detecting endometrial carcinoma at an endometrial thickness of >= 5mm was 83 and 72 percent, respectively; this is lower than in patients with bleeding. Studies have shown that postmenopausal patients without uterine bleeding who had an endometrial thickness >11 mm had an endometrial carcinoma risk of 6.7 percent; this risk is similar to postmenopausal patients with bleeding and an endometrial thickness >5 mm. Recommended endometrial sampling to rule endometrial pathology via either office endometrial biopsy or diagnostic hysteroscopy/D&C with possible polypectomy/myomectomy. All pros and cons, risks and benefits of each approach were discussed with the patient, the patient decided to proceed with endometrial biopsy. Instructions given the patient to schedule an EMB appointment within 1-2 weeks. All questions answered, the patient verbalized Coding Level of Care Code Est Pt Level 3 (84321) Diagnoses Uterine myoma D25.9 Endometrial thickening on ultrasound R93.89
[2023-08-31 15:44] VITALS: BP 124/82; BMI 44.1
== END 2023-08-31 16:14 | disposition home or self-care (01) ==
LOC: HO.HWS 15:31
PROVIDERS: PCP Family Medicine; Visit Provider Obstetrics & Gynecology
DX: D25.9 Leiomyoma of uterus, unspecified (principal); R93.89 Abnormal findings on diagnostic imaging of other specified body structures
CPT/HCPCS: 99213

== ENCOUNTER → 2023-08-31 15:31 | Outpatient (BNVA) | payer OTHER, SELFPAY | PROVIDERS: PCP Family Medicine; Visit Provider Obstetrics & Gynecology ==

== ENCOUNTER 2023-09-08 07:54 | Outpatient (REF) | payer OTHER, SELFPAY | END 2023-09-08 07:55 | disposition home or self-care (01) | LOC: HO.LNP 07:54 | PROVIDERS: PCP Family Medicine; Visit Provider Obstetrics & Gynecology | DX: R93.89 Abnormal findings on diagnostic imaging of other specified body structures (principal) | CPT/HCPCS: 58100; 88305 ==

== ENCOUNTER 2023-09-08 07:54 | Outpatient (AMB) | payer OTHER, SELFPAY ==
--- NOTE | 2023-09-08 07:58 | MHC.OFFVIS ---
Intake Vital Signs 09/08/23 08:02 Height 5 ft 3 in Weight 249 lb 1.957 oz BMI 44.1 BP 130/70 Intake Visit Reasons: EMB Hyperion Analyst Required: No Information Interpreted: non-clinical & clinical Commercial Baking Teacher: Commercial Baking Teacher Present (Fe Dailey DUSTIN) Accompanied by: Self / Same As Patient Allergies smallpox vaccine,live Allergy (Severe, Verified 09/08/23 08:02) seizures, grand mal aspirin Allergy (Mild, Verified 09/08/23 08:02) Hives bupropion [From Wellbutrin] Allergy (Mild, Verified 09/08/23 08:02) Palpitations morphine Allergy (Mild, Verified 09/08/23 08:02) Rash Post menopausal: Yes HPI HPI Comments History of Present Illness Details Presenting for EMB for thickened endometrium by ultrasound [facility] Medical History History of palpitations Depression Fibroids Ovarian torsion Other and unspecified hyperlipidemia Surgical History Hx of colonoscopy History of D&C History of tonsillectomy History of arthroscopy of left knee History of laparoscopic appendectomy History of laparoscopic cholecystectomy Family History Father High cholesterol Mother HTN (hypertension) Maternal Aunt History of breast cancer Other Mental health disorder Social History Housing: Apartment Alcohol intake: current Alcohol intake frequency: holidays/special occasions only Patient Tobacco Use Status: Never used Tobacco e-Cigarette/Vaping Use: Never Used Second Hand Smoke Exposure: Yes service: No 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 hysteroscopy D&C) & the risks were discussed with the patient including but not limited: pain, uterine perforation, bleeding, infection, possible injury to bladder, bowel, ureter, possible need for blood transfusion with all its possible risks. The patient verbalized understanding all questions answered and signed consent. The patient was placed into the dorsal lithotomy position; a speculum was inserted in the vagina. Using aseptic technique for the procedure, the cervix was cleansed with Betadine. The anterior lip of the cervix was grasped with a single tooth tenaculum. The uterus was sounded to 7 cm with a 4 mm Pipelle was used. Tissues samples were obtained and placed in formalin, in a patient labeled container and sent to the pathology department. At the end of the procedure, there was minimal bleeding noted The patient tolerated the procedure well and was discharged in good condition with the following instructions: Nothing in the vagina until the bleeding stops. No sex until the bleeding stops, to call if any of the following occurs: fever (>100.4), flu-like symptoms, abdominal pain, heavy bleeding, four smelling vaginal discharge. The patient was instructed to schedule a Follow up appointment in 2 weeks to discuss pathology results of the biopsy and treatment options. This note was generated with a voice recognition program. Some errors may have been overlooked during the review of this note. Sometimes these errors may affect the content or meaning of a given sentence. [id number] Biopsy Assessment & Plan Assessment & Plan (1) Endometrial thickening on ultrasound: Code(s): R93.89 - Abnormal findings on diagnostic imaging of other specified body structures Plan: EMB done, see procedure note Orders: Orders AMB Endometrial Biopsy Today R93.89 - Abnormal findings on diagnostic imaging of other specified body structures Coding Level of Care Code Procedure Only Diagnoses Endometrial thickening on ultrasound R93.89 CPT Codes Endometrial Biopsy - CPT: 74110-[id number] Biopsy ([id number])
[2023-09-08 08:02] VITALS: BP 130/70; BMI 44.1
== END 2023-09-08 08:15 | disposition home or self-care (01) ==
PROVIDERS: PCP Family Medicine; Visit Provider Obstetrics & Gynecology
DX: R93.89 Abnormal findings on diagnostic imaging of other specified body structures (principal)
CPT/HCPCS: 58100

== ENCOUNTER 2023-09-16 15:45 | Outpatient (AMB) | payer OTHER, SELFPAY ==
[2023-09-16 15:50] VITALS: BP 124/72; PULSE 81; O2SAT 96; BMI 44.7
--- NOTE | 2023-09-16 15:50 | A.OFFPC_ITS ---
Vital Signs 09/16/23 15:50 Height 5 ft 3 in Weight 252 lb 6 oz BMI 44.7 BP 124/72 Blood Pressure Location Lt brachial Position Sitting Pulse 81 Pulse Source Pulse Oximeter Pulse Oximetry (%) 96 Oxygen Delivery Method Room Air Intake Visit Reasons: f/u elevated liver enzymes Intake Note: Patient is here with questions of UTI. Patient is requesting a refill of cyclobenzaprine for hip pain. Allergies smallpox vaccine,live Allergy (Severe, Verified 09/16/23 15:59) seizures, grand mal aspirin Allergy (Mild, Verified 09/16/23 15:59) Hives bupropion [From Wellbutrin] Allergy (Mild, Verified 09/16/23 15:59) Palpitations morphine Allergy (Mild, Verified 09/16/23 15:59) Rash Medication List - Last Reconciled 09/16/23 by Dennis Elizabeth MD acetaminophen 1,000 mg PO Q6H PRN albuterol sulfate 90 mcg/actuation 1 inh inhalation Q6H PRN 1 month albuterol sulfate 90 mcg/actuation 2 puffs inhalation Q4-6H PRN blood sugar diagnostic (FreeStyle Lite Strips) test blood sugar once a day, 90 days blood-glucose meter (FreeStyle Lite Meter kit) test blood sugar once a day, duration 999 days codeine-guaifenesin 10-100 mg/5 mL 5 mL PO Q6H PRN cyclobenzaprine 10 mg PO TID PRN duloxetine 20 mg PO DAILY ibuprofen 800 mg PO Q8H lamotrigine (Lamictal) 150 mg PO DAILY lancets (FreeStyle Lancets) As directed, 90 days omeprazole 20 mg PO DAILY 90 days pramipexole 0.25 mg PO BEDTIME rosuvastatin 20 mg PO DAILY Tobacco use date assessed: 09/16/23 HPI f/u elevated liver enzymes HPI Details 57 y/o female presents to f/u elevated l iver enzymes, pre-diabetes. No recent liver enzymes to review. Labs drawn from May already reviewed. She reports ? UTI. She reports burning, frequency, and spasms towards emptying her bladder. She requests a refill of cyclobenzaprine for hip pain. [facility], [facility] Medical History (Updated 09/16/23 @ 16:03 by Concha Ambriz [facility]) Uterine polyp History of palpitations Depression Fibroids Ovarian torsion Other and unspecified hyperlipidemia Surgical History Hx of colonoscopy History of D&C History of tonsillectomy History of arthroscopy of left knee History of laparoscopic appendectomy History of laparoscopic cholecystectomy Family History Father High cholesterol Mother HTN (hypertension) Maternal Aunt History of breast cancer Other Mental health disorder Social History Housing: Apartment Alcohol intake: current Alcohol intake frequency: holidays/special occasions only Patient Tobacco Use Status: Never used Tobacco e-Cigarette/Vaping Use: Never Used Second Hand Smoke Exposure: Yes service: No 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 Benjamin Lr, Mer Langley, Alex Odonnell and colleagues, with an educational mi from [employer]. Review of Systems Const Denies chills, Denies fatigue, Denies fever(s), Denies headache(s) and Denies weakness ENT Denies dizziness and Denies headache(s) Card Denies dyspnea Resp Denies cough, Denies dyspnea, Denies wheezing and Denies other (shortness of breath) Details: Urinary frequency Reports dysuria Musc Denies numbness and Denies tingling Neuro Denies dizziness, Denies headache(s), Denies numbness, Denies tingling and Denies weakness Psych Denies anxiety and Denies depression Endo Denies fatigue Aller/Immun Denies wheezing Physical exam (Primary Care) Vital Signs: Last Vital Signs Pulse 81 09/16/23 15:50 BP 124/72 09/16/23 15:50 Pulse Ox 96 09/16/23 15:50 Oxygen Delivery Method Room Air 09/16/23 15:50 BMI result Body Mass Index 44.7 Tobacco/Smoking Status: Tobacco use Status Tobacco use date assessed 09/16/23 09/16/23 16:09 Patient Tobacco Use Status Never used Tobacco 09/16/23 15:53 e-Cigarette/Vaping Use Never Used 09/16/23 15:53 Thrive Assessment: Date of Thrive Assessment Date Thrive assessed 08/06/21 09/16/23 15:53 Const General: well developed; No acute distress Nutritional Appearance: obese morbidly obese Orientation/consciousness: patient oriented x3 HENMT Head: Yes normocephalic and Yes atraumatic Eyes General: appearance normal, both eyes and all related structures Pupils: Equal, round and reactive pupils present EOM: EOMs intact bilaterally Resp Other: Coarse breath sounds but otherwise clear Effort & Inspection: normal respiratory effort Auscultation: clear to auscultation bilaterally Cardio Rate: regular rate Rhythm: regular rhythm Heart sounds: S1 normal heart sound present, S2 normal heart sound present, no gallops, no murmurs and no rubs Neuro General: patient oriented x3 and gait normal Cranial nerves: Yes Equal, round and reactive pupils present Psych Affect: normal affect Results AMB Urinalysis, Automated UA Leukoctes 15 Mohan/uL Last Edit by Concha Ambriz CMA on 09/16/23 16:14 UA Nitrite Positive Last Edit by Concha Ambriz CMA on 09/16/23 16:14 UA Urobilinogen 17 mg/dL Last Edit by Concha Ambriz CMA on 09/16/23 16:14 UA Protein 0 mg/dL Last Edit by Concha Ambriz CMA on 09/16/23 16:14 UA pH 6.0 Last Edit by Concha Ambriz CMA on 09/16/23 16:14 UA Blood 10 Puma/uL Last Edit by Concha Ambriz CMA on 09/16/23 16:14 UA Specific [place] 1.030 Last Edit by Concha Ambriz CMA on 09/16/23 16:1 4 UA Ketone Negative Last Edit by Concha Ambriz CMA on 09/16/23 16:14 UA Bilirubin 1 mg/dL Last Edit by Concha Ambriz CMA on 09/16/23 16:14 UA Glucose 0 mg/dL Last Edit by Concha Ambriz CMA on 09/16/23 16:14 Results Reviewed Results Reviewed: Laboratory Last Values Urine pH (Auto) 6.0 09/16/23 16:11 Specific [place] (Auto) 1.030 09/16/23 16:11 Urine Protein (Auto) 0 mg/dL 09/16/23 16:11 Glucose (UA)(Auto) 0 mg/dL 09/16/23 16:11 Urine Ketones (Auto) Negative 09/16/23 16:11 Urine Blood (Auto) 10 Puma/uL 09/16/23 16:11 Urine Nitrite (Auto) Positive 09/16/23 16:11 Urine Bilirubin (Auto) 1 mg/dL 09/16/23 16:11 Urine Urobilinogen (Auto) 17 mg/dL 09/16/23 16:11 Leukocyte Esterase (Auto) 15 Mohan/uL 09/16/23 16:11 Assessment and Plan Assessment & Plan (1) Dysuria: Code(s): R30.0 - Dysuria Plan: Dysuria?and?frequency Urine?dip?shows?nitrites?and?elevated?LE Start?Bactrim Will?send?urine?for?urinalysis?and?culture?with?sensitivity (2) Elevated liver enzymes: Code(s): R74.8 - Abnormal levels of other serum enzymes Plan: Patient?did?not?get?her?labs?drawn?yet.??She?will?get?her?labs?drawn?and?we?can? follow-up?on?these?at?her?next?visit?in?November.??Wi ll?call?sooner?if?requires?action Orders: Orders AMB Urinalysis Automated Today Z13.9 - Encounter for screening, unspecified UA CC w/rflx Micro + Cult Today R30.0 - Dysuria Medications: New sulfamethoxazole-trimethoprim 800-160 mg (Bactrim DS) 1 tab PO Q12H 10 tabs 0RF 5 days Refilled cyclobenzaprine 10 mg PO TID PRN 30 tabs 0RF muscle spasm albuterol sulfate 90 mcg/actuation 1 inh inhalation Q6H PRN 8.5 grams 10RF for wheezing 1 month J45.909 - Unspecified asthma, uncomplicated Coding Level of Care Code Est Pt Level 3 (72346) Diagnoses Dysuria R30.0 Elevated liver enzymes R74.8
== END 2023-09-16 17:19 | disposition home or self-care (01) ==
PROVIDERS: PCP Family Medicine; Visit Provider Family Medicine
DX: R30.0 Dysuria (principal); R74.8 Abnormal levels of other serum enzymes
CPT/HCPCS: 81003; 99213

== ENCOUNTER 2023-09-16 17:19 | Outpatient (REF) | payer OTHER, SELFPAY ==
[2023-09-17 12:00] LABS: Appearance Urine Cloudy; Glucose Urine UA Negative (Negative); Leukocyte Esterase Urine Negative (Negative); PH 5.5 (5.0-9.0); Specific Gravity - Urine >= 1.030 (1.005-1.025); UMIC TRIGGER UACC YES; Urine Blood Trace (Negative); Urine Ketones Negative (Negative); Urine Protein Trace mg/dL (Neg-Trace)
[2023-09-17 12:05] LABS: Color Urine Orange
[2023-09-17 12:48] LABS: Bacteria Urine 2+ (None Seen); Hyaline Casts Urine 0-2 /LPF (0-2); Other Crystals Urine Present; RBC Urine 0-2 /HPF (0-2); WBC Urine 0-5 /HPF (0-5)
== END 2023-09-16 17:20 | disposition home or self-care (01) ==
LOC: HO.LAB 17:19
PROVIDERS: Visit Provider Family Medicine
DX: R30.0 Dysuria (principal)
CPT/HCPCS: 81001; 81003

== ENCOUNTER 2023-10-16 15:46 | Outpatient (REF) | payer OTHER, SELFPAY ==
--- NOTE | ~2023-10-16 | MM_ITS ---
EXAMINATION: MM SCREENING DIGITAL BREAST TOMOSYNTHESIS, BILATERAL CLINICAL INFORMATION: Screening. Asymptomatic. COMPARISON: Mammography: 10/03/2022, 09/30/2021 (new baseline). TECHNIQUE: Digital breast tomosynthesis is performed in both the craniocaudal and mediolateral oblique views along with computer-aided detection (CAD). Synthesized 2D images are generated from the tomosynthesis. Additional full-field left MLO and right CC projections were provided for anterior compression/nipple in profile. FINDINGS: There are scattered areas of fibroglandular density (ACR BI-RADS breast composition Category b). There are no suspicious masses, suspicious grouped calcifications, or areas of architectural distortion in either breast. Asymmetric parenchymal density in the far posterior right breast just above the nipple line on the MLO projection is unchanged from baseline. 2 well-circumscribed tiny nodules in the central left breast and medially show no change from baseline. The parenchymal pattern is stable from prior exams. There are no axillary or skin abnormalities. MM/MM tomosynthesis screening BI IMPRESSION: No mammographic evidence of malignancy. Stable benign findings, unchanged from new baseline 10/18/2021. ASSESSMENT: BI-RADS BI-RADS 2 - Benign Findings RECOMMENDATION: Routine annual mammography screening. 1 year F/U This examination should not preclude the clinical evaluation of a suspicious palpable abnormality. This patient's information was entered into a reminder system with a target due date for their next mammogram.
== END 2023-10-16 15:47 | disposition home or self-care (01) ==
LOC: HO.MAMMO 15:46
PROVIDERS: PCP Family Medicine; Referring Provider Obstetrics & Gynecology; Visit Provider Hospitalist
DX: Z12.31 Encounter for screening mammogram for malignant neoplasm of breast (principal)
CPT/HCPCS: 77063; 77067

== ENCOUNTER → 2023-10-16 16:00 | Outpatient (BNV) | payer OTHER, SELFPAY | PROVIDERS: PCP Family Medicine; Referring Provider Obstetrics & Gynecology; Visit Provider Radiology Diagnostic Radiology | DX: Z12.31 Encounter for screening mammogram for malignant neoplasm of breast (principal) | CPT/HCPCS: 77063; 77067 ==

== ENCOUNTER 2023-10-26 09:54 | Emergency (ER) | payer OTHER, SELFPAY ==
[2023-10-26] VITALS (7 sets, daily range): BP systolic 142–154; BP diastolic 64–78; PULSE 60–78; RESP 14–18; TEMP 36.6–36.8; O2SAT 94–98; BMI 44.3
--- NOTE | ~2023-10-26 | MR_ITS ---
EXAMINATION: MR BRAIN WITHOUT AND WITH CONTRAST CLINICAL INFORMATION: Abnormal CT head. COMPARISON: CT scan of the head 10/26/2023 TECHNIQUE: Multiplanar MR imaging of the brain was performed without and with contrast. A total of 10 mL Gadavist was utilized for this examination. FINDINGS: Postcontrast images reveal no abnormal intracranial mass or enhancement. There is no intracranial mass effect or midline shift. Lateral and third ventricles are normal. No hydrocephalus. Midline structures including the cervicomedullary junction are normal. No acute bone marrow signal changes. There is no acute territorial infarct. No pathological magnetic susceptibility artifact. Intracranial vascular flow voids are grossly maintained. There is no mastoid middle ear effusion. Trivial mucosal thickening within the ethmoid air cells. Globes and orbits are grossly symmetric. MR/MR head/brain wo/w con IMPRESSION: Normal brain MRI.
--- NOTE | 2023-10-26 10:15 | ED_ITS ---
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 Denies any chest pain shortness of breath at this time just some nausea but she is feeling better now MD elicited complaint: dizziness, lightheadedness and near syncope Onset (ago): hour(s) (1) Description: near-syncope History of similar symptoms: No Exacerbating factors: nothing Relieving factors: nothing Associated symptoms: nausea Related Data Home Medications Medication Instructions Recorded Confirmed duloxetine 20 mg capsule,delayed 20 mg PO DAILY 11/28/20 09/16/23 release lamotrigine 150 mg tablet 150 mg PO DAILY 11/28/20 09/16/23 (Lamictal) pramipexole 0.25 mg tablet 0.25 mg PO BEDTIME 11/28/20 09/16/23 acetaminophen 500 mg capsule 1,000 mg PO Q6H PRN 09/29/22 09/16/23 ibuprofen 800 mg tablet 800 mg PO Q8H 09/29/22 09/16/23 albuterol sulfate 90 mcg/actuation 2 puff inhalation Q4-6H PRN 09/16/23 09/16/23 aerosol inhaler Previous Rx's Medication Instructions Recorded omeprazole 20 mg tablet,delayed 20 mg PO DAILY 90 days #90 tabs 03/13/23 release rosuvastatin 20 mg tablet 20 mg PO DAILY #30 tabs 04/08/23 blood sugar diagnostic (FreeStyle #100 ea 04/16/23 Lite Strips) blood-glucose meter (FreeStyle #1 ea 04/16/23 Lite Meter kit) lancets 28 gauge (FreeStyle #100 ea 04/16/23 Lancets) codeine 10 mg-guaifenesin 100 mg/5 5 ml PO Q6H PRN allergy symptoms 08/10/23 mL oral liquid #118 mL albuterol sulfate 90 mcg/actuation 1 inh inhalation Q6H PRN for 09/16/23 aerosol inhaler wheezing 1 month #8.5 grams cyclobenzaprine 10 mg tablet 10 mg PO TID PRN muscle spasm #30 09/16/23 tabs sulfamethoxazole 800 1 tab PO Q12H 5 days #10 tabs 09/16/23 mg-trimethoprim 160 mg tablet (Bactrim DS) Allergies Allergy/AdvReac Type Severity Reaction Status Date / Time smallpox vaccine,live Allergy Severe seizures, Verified 09/16/23 15:59 grand mal aspirin Allergy Mild Hives Verified 09/16/23 15:59 bupropion [From Wellbutrin] Allergy Mild Palpitation Verified 09/16/23 15:59 s morphine Allergy Mild Rash Verified 09/16/23 15:59 Review of Systems 2 Constitutional: Constitutional: Reports no additional constitutional complaints ENT: Reports system reviewed and no additional complaints, except as documented Cardiovascular: Cardiovascular: Reports no additional cardiovascular complaints PMFSH Past Medical History Attestation statement: The following information was validated with the patient. Source: unable to obtain Onset Date is defined in the Problem List Problems that require an onset date and time if occurred within 24 hrs of arrival to the ED Aortic Dissection and Rupture; Neurologic impairment; Cardiopulmonary Arrest; Endotracheal Intubation; Insertion or Replacement of Mechanical Circulatory Assist Device Medical History Uterine polyp History of palpitations Depression Fibroids Ovarian torsion Other and unspecified hyperlipidemia Surgical History Hx of colonoscopy History of D&C History of tonsillectomy History of arthroscopy of left knee History of laparoscopic appendectomy History of laparoscopic cholecystectomy Family History Family History Father High cholesterol Mother HTN (hypertension) Maternal Aunt History of breast cancer Other Mental health disorder Social History Social History Housing: Apartment Alcohol intake: current Alcohol intake frequency: holidays/special occasions only Patient Tobacco Use Status: Never used Tobacco Smoked in Last 30 Days: No e-Cigarette/Vaping Use: Never Used Second Hand Smoke Exposure: Yes Use of substances other than those prescribed or required for medical reasons: No Advance Directives: No Advance Directives Information Provided: No service: No 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 occupational exposures/hazards: No Cognitive needs: No Hearing needs: No Vision needs: Yes (Glasses) Physical Exam 2 Vital Signs: Vital Signs: Last Vital Signs Temp 97.9 F 10/26/23 15:55 Pulse 78 10/26/23 15:55 Resp 18 10/26/23 15:55 BP 154/78 H 10/26/23 15:55 Pulse Ox 98 10/26/23 15:55 O2 Del Method Room Air 10/26/23 15:55 BMI result Body Mass Index 44.3 Const: General: cooperative, no acute distress, well developed, alert and awake Nutritional Appearance: well nourished Orientation/consciousness: p atient oriented x3 Limitations: no limitations HEENT: Head: Yes normal to inspection Ears: hearing grossly normal bilaterally Face and sinus: Yes normal facial exam Mouth: Normal oral and palatal mucosa present Teeth and gingiva: dentition normal Throat: Yes posterior oropharynx normal Neck: Neck: Yes normal visual inspection and Yes full ROM Chest: Chest palpation & inspection: normal inspection of the chest Resp: Effort & Inspection: able to speak in complete sentences A uscultation: clear to auscultation bilaterally Cardio: Jugular venous distension: no JVD Rate: regular rate Rhythm: r egular rhythm GI: Inspection: Yes normal to inspection Palpation (GI): Soft to palpation, not firm, nontender and no guarding Percussion: Yes normal to percussion A uscultation: normal bowel sounds Skin: General skin exam: no rashes or lesions noted, elasticity normal and turgor normal Lesions: no lesions Rashes: no rashes Neuro: General: patient oriented x3 Course Reevaluation(s) Reevaluation #1: PT HAS ABNORMAL CT ,4 MM HYPODENSITY MEDULLA WILL DO MRI BRAIN Time: 15:29 Reevaluation #2: PT WILL BE SIGNED OUT TO THE INCOMING ATTENDING DR LLAMAS Time: 16:18 Medications Administered Discontinued Medications Generic Name Dose Route Start Last Admin Trade Name Freq PRN Reason Stop Dose Admin Sodium Chloride 1,000 mls @ 999 mls/hr 10/26/23 10:15 10/26/23 12:15 Ns IVCONT 10/26/23 11:15 Infused .Q1H1M AGUSTIN Infusion Lorazepam 1 mg 10/26/23 15:40 10/26/23 15:48 Lorazepam 2 Mg/Ml Vial IVPUSH 10/26/23 15:41 1 mg ONCE ONE Administration Ondansetron HCl 4 mg 10/26/23 13:33 10/26/23 13:41 Ondansetron Hcl 4 Mg/2 Ml Vial IVPUSH 10/26/23 13:34 4 mg ONCE ONE Administration Medical Decision Making Medical Decision Making [facility] Narrative: PATIENT PRESENTED WITH A NEAR SYNCOPAL EPISODE WHILE WORKING IN THE PACU, LABS OKAY EKG NORMAL, CT SHOWED ABNORMALITY ON THE MEDULLA HYPODENSITY WILL DO MRI Differential Diagnosis Differential Diagnoses: The differential diagnosis associated with the presentation includes VASOVAGAL EPISODE/DEHYDRATION/CVA Admission/Observation Consideration of admission/observation: Escalation of care including admission/observation considered Lab Data [facility] Lab Attestation statement: I reviewed the patient's lab results. 10/26/23 10:39 10/26/23 10:39 Labs: Lab Results 10/26/23 Range/Units 10:39 WBC 7.0 (4.8-10.8) X10*3/uL RBC 4.37 (4.20-5.50) X10*6/uL Hgb 13.3 (12.0-16.0) g/dl Hct 39.7 (37.0-47.0) % MCV 90.8 (80.0-98.0) fL MCH 30.4 (27.0-33.0) pg MCHC 33.5 (31.0-35.0) g/dl RDW 12.5 (11.0-16.0) % Plt Count 200 (160-400) X10*3/uL MPV 9.3 L (9.4-12.3) fL Immature Gran % (Auto) 0.6 H (0.0-0.4) % Neut % (Auto) 68.8 (45-73) % Lymph % (Auto) 25.0 (20-40) % [place] % (Auto) 4.4 (2-11) % Eos % (Auto) 0.9 (0-4) % Baso % (Auto) 0.3 (0-2) % Lymph # (Auto) 1.8 (1.2-4.9) X10*3/uL [place] # (Auto) 0.3 (0.1-1.2) X10*3/uL Eos # (Auto) 0.1 (0.0-0.4) X10*3/uL Baso # (Auto) 0.0 (0.0-0.2) X10*3/uL Abs Immat Gran (auto) 0.04 H (0.00-0.03) X10*3/uL Absolute Neuts (auto) 4.8 (2.0-8.3) x10*3/uL Absolute Nucleated RBC 0.000 (0.0-0.012) X10*3/uL Nucleated RBC % (auto) 0.0 (0.0-0.2) /100WBC Sodium 140 (135-145) mmol/L Potassium 4.4 (3.3-5.1) mmol/L Chloride 103 (96-108) mmol/L Carbon Dioxide 30 H (22-29) mmol/L Anion Gap 11 L (12-20) BUN 12 (9-16) mg/dL Creatinine 0.70 (0.5-1.4) mg/dL Estim Creat Clear Calc 103.6 Estimated GFR > 60 Random Glucose 98 (60-115) mg/dL Calcium 10.2 (8.4-10.2) mg/dL Total Bilirubin 0.4 (0.0-1.0) mg/dL AST 32 H (5-31) U/L ALT 30 (0-31) U/L Alkaline Phosphatase 66 (39-117) U/L Troponin I High Sens < 2.7 (<3.5-17.0) ng/L Total Protein 6.7 (6.5-8.0) g/dL Albumin 4.0 (3.5-5.0) g/dL Independent Interpretation I performed an independent interpretation of an: EKG Interpretation: Normal sinus rhythm rate [address]-T changes Independent Historian Clinical information obtained from an independent historian. History obtained from or confirmed by: Spouse Discharge Plan Discharge Clinical Impression: Near syncope, Dizziness Patient Disposition: Still a Patient Prescriptions: No Action rosuvastatin 20 mg tablet 20 mg PO DAILY Qty: 30 0RF Rx Instructions: OVERDUE FOR APPT. PLEASE CALL [phone] TO SCHEDULE FOLLOW UP FOR 2022 SO WE CAN CONTINUE REFILLING YOUR MEDICATION. Or you can transfer this Rx to your PCP and he can continue filling. duloxetine 20 mg capsule,delayed release(DR/EC) 20 mg PO DAILY lamotrigine [Lamictal] 150 mg tablet 150 mg PO DAILY pramipexole 0.25 mg tablet 0.25 mg PO BEDTIME (DME) FreeStyle Lite Strips Strip See Rx Instructions .ROUTE .MEDSUPPLY Qty: 100 4RF Rx Instructions: test blood sugar once a day, 90 days (DME) blood-glucose meter [FreeStyle Lite Meter] Kit See Rx Instructions .ROUTE .MEDSUPPLY Qty: 1 0RF Rx Instructions: test blood sugar once a day, duration 999 days (DME) lancets [FreeStyle Lancets] 28 gauge misc See Rx Instructions .ROUTE .MEDSUPPLY Qty: 100 4RF Rx Instructions: As directed, 90 days albuterol sulfate 90 mcg/actuation HFA aerosol inhaler 2 puff inhalation Q4-6H PRN cyclobenzaprine 10 mg tablet 10 mg PO TID PRN (Reason: muscle spasm) Qty: 30 0RF albuterol sulfate 90 mcg/actuation HFA aerosol inhaler 1 inh inhalation Q6H PRN (Reason: for wheezing) 30 Days Qty: 8.5 10RF sulfamethoxazole-trimethoprim [Bactrim DS] 800-160 mg tablet 1 tab PO Q12H 5 Days Qty: 10 0RF omeprazole 20 mg tablet,delayed release (DR/EC) 20 mg PO DAILY 90 Days Qty: 90 2RF codeine-guaifenesin 10-100 mg/5 mL liquid 5 ml PO Q6H PRN (Reason: allergy symptoms) Qty: 118 0RF ibuprofen 800 mg tablet 800 mg PO Q8H acetaminophen 500 mg capsule 1,000 mg PO Q6H PRN
--- NOTE | 2023-10-26 10:30 | PC.NURSE ---
Pt is a&ox4 coming in for a near syncopal episode while at work, denies LOC. Reports feeling dizzy, lightheaded, and nauseous at the time of incident. Reports sx have subsided and denies pain anywhere.
[2023-10-26 11:01] LABS: Alanine Aminotransferase 30 U/L (0-31); Alkaline Phosphatase 66 U/L (39-117); Anion Gap 11 (12-20); Aspartate Amino Transferase 32 U/L (5-31); Bilirubin Total 0.4 mg/dL (0.0-1.0); Blood Urea Nitrogen 12 mg/dL (9-16); Calcium 10.2 mg/dL (8.4-10.2); Carbon Dioxide 30 mmol/L (22-29); Chloride 103 mmol/L (96-108); Creatinine Clr Calc Pharmacy 103.6; Estimated Glomerular Filt Rate > 60; Glucose Random 98 mg/dL (60-115); Potassium 4.4 mmol/L (3.3-5.1); Sodium 140 mmol/L (135-145); Total Protein 6.7 g/dL (6.5-8.0)
--- NOTE | 2023-10-26 15:57 | PC.NURSE ---
Pt transported to MRI.
--- NOTE | 2023-10-26 16:09 | PC.NURSE ---
PT AWAKE, ALERT AND ORIENTED X 3. SKIN PINK WARM AND DRY. RESP UNLABORED. DENIES N/V PRESENTLY. NEUROS INTACT. HAND GRASP EQUAL, NO WEAKNESS NOTED TO ARMS OR LEGS BILATERALLY. TONGUE MIDLINE. NO PALMAR DRIFT. SWALLOW EVAL COMPLETED AND PATIENT PASSED WITHOUT INCIDENT. CURRENTLY OFF UNIT TO MRI. PT WAS BROUGHT TO ED AFTER SYNCOPAL EPISODE AT WORK. HEAD CT COMPLETED AND MRI RECOMMENDED. PT AND UPDATED ON PLAN OF CARE. PT STATES NO QUESTIONS.
[2023-10-26] MEDS: gadobutroL 10 ML VIAL IVPUSH (16:54)
--- NOTE | 2023-10-26 17:41 | PC.NURSE ---
Pt retrurned from MRi and is a&ox4 nueros intact, equal strength in BUE and BLE, sensation intact. smile is symmetrical Pt able to follow commands, denies weakness at this time. no n/v.
[2023-10-30 08:14] LABS: Glucose, Whole Blood 114 mg/dL (60-115)
== END 2023-10-26 18:30 | disposition home or self-care (01) ==
PROVIDERS: Emergency Provider Emergency Medicine; PCP Family Medicine
DX: R55 Syncope and collapse (principal); R42 Dizziness and giddiness; R11.2 Nausea with vomiting, unspecified; R94.31 Abnormal electrocardiogram [ECG] [EKG]; R41.82 Altered mental status, unspecified; Z79.899 Other long term (current) drug therapy
CPT/HCPCS: 36415; 70450; 70553; 80053; 82947; 84484; 85025; 93005; 96361; 96374; 96375; 99285; A9585; J2060; J2405

== ENCOUNTER → 2023-10-26 10:11 | Outpatient (BNV) | payer OTHER, SELFPAY | PROVIDERS: Emergency Provider Emergency Medicine; PCP Family Medicine; Visit Provider Internal Medicine Cardiovascular Disease | DX: R94.31 Abnormal electrocardiogram [ECG] [EKG] (principal) | CPT/HCPCS: 93010 ==

== ENCOUNTER 2023-10-28 08:28 | Emergency (ER) | payer OTHER, SELFPAY ==
--- NOTE | ~2023-10-28 | XR_ITS ---
EXAMINATION: XR CHEST CLINICAL INFORMATION: Syncope COMPARISON: 08/10/2023 TECHNIQUE: 2 views of the chest were obtained. FINDINGS: Lungs are well expanded. Linear opacity of minimal atelectasis in the inferior lingula. No pulmonary consolidation. No edema or pleural effusion. Cardiac silhouette is normal in size. The hilar contours are normal. The visualized bones are intact. Mild spondylosis of the thoracic spine. XR/XR chest 2V IMPRESSION: No acute pulmonary disease.
[2023-10-28 09:12] VITALS: BP 148/72; PULSE 64; RESP 16; O2SAT 98; BMI 44.3
--- NOTE | 2023-10-28 09:18 | ECG_ITS ---
Test Reason : cp Blood Pressure : / mmHG Vent. Rate : 067 BPM Atrial Rate : 067 BPM P-R Int : 140 ms QRS Dur : 090 ms QT Int : 400 ms P-R-T Axes : 024 -34 -44 degrees QTc Int : 422 ms Normal sinus rhythm Left axis deviation Septal infarct (cited on or before 26-OCT-2023) Abnormal ECG When compared with ECG of 26-OCT-2023 10:11, Questionable change in initial forces of Septal leads Referred By: Generic ED Physician Electronically Signed By:ABRAHAM LINCOLN MD
[2023-10-28 10:15] LABS: MANUAL DIFF FLAG NO
[2023-10-28 10:17] LABS: Basophils Percent Auto 0.3 % (0-2); Eosinophils Absolute Auto 0.1 X10*3/uL (0.0-0.4); Eosinophils Percent Auto 1.2 % (0-4); Hematocrit 40.7 % (37.0-47.0); Hemoglobin 13.5 g/dl (12.0-16.0); Imm Gran Abs Auto 0.03 X10*3/uL (0.00-0.03); Imm Gran Pct Auto 0.4 % (0.0-0.4); Lymphocytes Absolute Auto 1.9 X10*3/uL (1.2-4.9); Lymphocytes Percent Auto 27.8 % (20-40); Mean Corpuscular HGB Conc 33.2 g/dl (31.0-35.0); Mean Corpuscular Hemoglobin 30.3 pg (27.0-33.0); Mean Corpuscular Volume 91.3 fL (80.0-98.0); Mean Platelet Volume 9.3 fL (9.4-12.3); Monocytes Absolute Auto 0.4 X10*3/uL (0.1-1.2); Monocytes Percent Auto 5.5 % (2-11); Neutrophils Absolute Auto 4.3 x10*3/uL (2.0-8.3); Neutrophils Percent Auto 64.8 % (45-73); Platelet Count 199 X10*3/uL (160-400); Red Blood Count 4.46 X10*6/uL (4.20-5.50); Red Cell Distribution Width 12.6 % (11.0-16.0); White Blood Count 6.7 X10*3/uL (4.8-10.8)
[2023-10-28 10:23] VITALS: BP 143/73; PULSE 67; RESP 16; O2SAT 97
[2023-10-28 10:26] LABS: Partial Thromboplastin Time 27.9 SEC (26.0-36.4)
--- NOTE | 2023-10-28 10:31 | ED_ITS ---
HPI - Dizziness General Chief Complaint: Dizziness Stated Complaint: Lightheaded, dizziness Time Seen by Provider: 10/28/23 10:15 Source: patient Mode of arrival: ambulatory Limitations: no limitations History of Present Illness HPI Narrative: Patient was seen 2 days ago with dizziness and near syncope with in PACU. She had a cardiac workup, CT of brain, MRI of brain. She had a similar event today, denies tachycardia. Describes the room as moving. MD elicited complaint: dizziness Onset (ago): minute(s) Timing: sudden onset Severity: mild Description: room spinning Related Data Home Medications Medication Instructions Recorded Confirmed duloxetine 20 mg capsule,delayed 20 mg PO DAILY 11/28/20 09/16/23 release lamotrigine 150 mg tablet 150 mg PO DAILY 11/28/20 09/16/23 (Lamictal) pramipexole 0.25 mg tablet 0.25 mg PO BEDTIME 11/28/20 09/16/23 acetaminophen 500 mg capsule 1,000 mg PO Q6H PRN 09/29/22 09/16/23 ibuprofen 800 mg tablet 800 mg PO Q8H 09/29/22 09/16/23 albuterol sulfate 90 mcg/actuation 2 puff inhalation Q4-6H PRN 09/16/23 09/16/23 aerosol inhaler Previous Rx's Medication Instructions Recorded omeprazole 20 mg tablet,delayed 20 mg PO DAILY 90 days #90 tabs 03/13/23 release rosuvastatin 20 mg tablet 20 mg PO DAILY #30 tabs 04/08/23 blood sugar diagnostic (FreeStyle #100 ea 04/16/23 Lite Strips) blood-glucose meter (FreeStyle #1 ea 04/16/23 Lite Meter kit) lancets 28 gauge (FreeStyle #100 ea 04/16/23 Lancets) codeine 10 mg-guaifenesin 100 mg/5 5 ml PO Q6H PRN allergy symptoms 08/10/23 mL oral liquid #118 mL albuterol sulfate 90 mcg/actuation 1 inh inhalation Q6H PRN for 09/16/23 aerosol inhaler wheezing 1 month #8.5 grams cyclobenzaprine 10 mg tablet 10 mg PO TID PRN muscle spasm #30 09/16/23 tabs sulfamethoxazole 800 1 tab PO Q12H 5 days #10 tabs 11/29/23 mg-trimethoprim 160 mg tablet (Bactrim DS) meclizine 25 mg tablet 25 mg PO TID PRN dizziness #20 tabs 10/28/23 Allergies Allergy/AdvReac Type Severity Reaction Status Date / Time smallpox vaccine,live Allergy Severe seizures, Verified 09/16/23 15:59 grand mal aspirin Allergy Mild Hives Verified 09/16/23 15:59 bupropion [From Wellbutrin] Allergy Mild Palpitation Verified 09/16/23 15:59 s morphine Allergy Mild Rash Verified 09/16/23 15:59 Review of Systems 2 Review of Systems: Yes all other systems are reviewed and are negative Neurologic: Denies Sensory deficit (Neuro) PMFSH Past Medical History Onset Date is defined in the Problem List Problems that require an onset date and time if occurred within 24 hrs of arrival to the ED Aortic Dissection and Rupture; Neurologic impairment; Cardiopulmonary Arrest; Endotracheal Intubation; Insertion or Replacement of Mechanical Circulatory Assist Device Medical History Uterine polyp History of palpitations Depression Fibroids Ovarian torsion Other and unspecified hyperlipidemia Surgical History Hx of colonoscopy History of D&C History of tonsillectomy History of arthroscopy of left knee History of laparoscopic appendectomy History of laparoscopic cholecystectomy Family History Family History Father High cholesterol Mother HTN (hypertension) Maternal Aunt History of breast cancer Other Mental health disorder Social History Social History Housing: Apartment Alcohol intake: current Alcohol intake frequency: holidays/special occasions only Patient Tobacco Use Status: Never used Tobacco Smoked in Last 30 Days: No e-Cigarette/Vaping Use: Never Used Second Hand Smoke Exposure: Yes Use of substances other than those prescribed or required for medical reasons: No Advance Directives: No Advance Directives Information Provided: Yes Patient : No service: No 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 occupational exposures/hazards: No Cognitive needs: No Hearing needs: No Vision needs: Yes (Glasses) Physical Exam 2 Vital Signs: Vital Signs: Last Vital Signs Pulse 67 10/28/23 10:23 Resp 16 10/28/23 10:23 BP 143/73 H 10/28/23 10:23 Pulse Ox 97 10/28/23 10:23 O2 Del Method Room Air 10/28/23 10:23 BMI result Body Mass Index 44.3 Const: Other: Obese female, flat affect Orientation/consciousness: oriented to person and patient oriented x3 L imitations: no limitations HEENT: Other: Did not create nystagmus on Barrone maneuver although patient felt dizzy, TMS were normal Head: Yes normal to inspection Ears: external ears normal General nose exam: Normal external nose present Mouth: Normal oral and palatal mucosa present and oropharynx normal Throat: Yes posterior oropharynx normal Eyes: General: appearance normal, both eyes and all related structures Neck: Other: supple Neck: Yes normal visual inspection Chest: Chest palpation & inspection: normal inspection of the chest Resp: Auscultation: clear to auscultation bilaterally Cardio: Jugular venous distension: no JVD Rate: regular rate Rhythm: r egular rhythm Heart sounds: S1 normal heart sound present and S2 normal heart sound present GI: Inspection: Yes normal to inspection Palpation (GI): Soft to palpation, nontender and No hepatosplenomegaly present Auscultation: normal bowel sounds : General: Yes no CVA tenderness Back/Spine/Pelvis: Back: no CVA tenderness Skin: General skin exam: no rashes or lesions noted Neuro: General: oriented to person and patient oriented x3 Cranial nerves: Yes CN's II-XII intact bilaterally Motor exam (neuro): 5/5 motor strength present throughout Sensory Exam: No Sensory deficit (Neuro) Extrem: General: Yes normal to inspection Psych: Appearance: grossly normal Course Reevaluation(s) Reevaluation #1: patient improved will dc on meclizine for BPV Time: 12:34 Medications Administered Discontinued Medications Generic Name Dose Route Start Last Admin Trade Name Freq PRN Reason Stop Dose Admin Meclizine HCl 50 mg 10/28/23 10:31 10/28/23 10:46 Meclizine Hcl 25 Mg Tablet PO 10/28/23 10:32 50 mg ONCE ONE Administration Medical Decision Making Differential Diagnosis Differential Diagnoses: The differential diagnosis associated with the presentation includes (CVA, Arrhythmia, vertigo, electrolyte abnormality, CAD) Admission/Observation Consideration of admission/observation: Escalation of care including admission/observation considered (upon arrival patient was considered for admission) Lab Data 10/28/23 10:11 10/28/23 10:11 Labs: Lab Results 10/28/23 Range/Units 10:11 WBC 6.7 (4.8-10.8) X10*3/uL RBC 4.46 (4.20-5.50) X10*6/uL Hgb 13.5 (12.0-16.0) g/dl Hct 40.7 (37.0-47.0) % MCV 91.3 (80.0-98.0) fL MCH 30.3 (27.0-33.0) pg MCHC 33.2 (31.0-35.0) g/dl RDW 12.6 (11.0-16.0) % Plt Count 199 (160-400) X10*3/uL MPV 9.3 L (9.4-12.3) fL Immature Gran % (Auto) 0.4 (0.0-0.4) % Neut % (Auto) 64.8 (45-73) % Lymph % (Auto) 27.8 (20-40) % [place] % (Auto) 5.5 (2-11) % Eos % (Auto) 1.2 (0-4) % Baso % (Auto) 0.3 (0-2) % Lymph # (Auto) 1.9 (1.2-4.9) X10*3/uL [place] # (Auto) 0.4 (0.1-1.2) X10*3/uL Eos # (Auto) 0.1 (0.0-0.4) X10*3/uL Baso # (Auto) 0.0 (0.0-0.2) X10*3/uL Abs Immat Gran (auto) 0.03 (0.00-0.03) X10*3/uL Absolute Neuts (auto) 4.3 (2.0-8.3) x10*3/uL Absolute Nucleated RBC 0.000 (0.0-0.012) X10*3/uL Nucleated RBC % (auto) 0.0 (0.0-0.2) /100WBC APTT 27.9 (26.0-36.4) SEC Sodium 143 (135-145) mmol/L Potassium 4.2 (3.3-5.1) mmol/L Chloride 104 (96-108) mmol/L Carbon Dioxide 31 H (22-29) mmol/L Anion Gap 12 (12-20) BUN 9 (9-16) mg/dL Creatinine 0.72 (0.5-1.4) mg/dL Estim Creat Clear Calc 100.7 Estimated GFR > 60 Random Glucose 121 H (60-115) mg/dL Calcium 9.6 (8.4-10.2) mg/dL Troponin I High Sens < 2.7 (<3.5-17.0) ng/L Independent Interpretation I performed an independent interpretation of an: EKG (sinus [address] or twave changes) External Record Review External record reviewed: Outpatient record, Prior outpatient labs and Prior outpatient radiology Tests considered The following testing was considered but not selected: CT of brain but patient just had imaging 2 days ago Chronic Conditions Patient?s care impacted by: Hypertension Discharge Plan Discharge Clinical Impression: Dizziness, Acute vestibular neuronitis Patient Disposition: Home, Self-Care Instructions: Vertigo (ED), Dizziness (ED) Prescriptions: New meclizine 25 mg tablet 25 mg PO TID PRN (Reason: dizziness) Qty: 20 0RF No Action rosuvastatin 20 mg tablet 20 mg PO DAILY Qty: 30 0RF Rx Instructions: OVERDUE FOR APPT. PLEASE CALL [phone] TO SCHEDULE FOLLOW UP FOR 2022 SO WE CAN CONTINUE REFILLING YOUR MEDICATION. Or you can transfer this Rx to your PCP and he can continue filling. duloxetine 20 mg capsule,delayed release(DR/EC) 20 mg PO DAILY lamotrigine [Lamictal] 150 mg tablet 150 mg PO DAILY pramipexole 0.25 mg tablet 0.25 mg PO BEDTIME (DME) FreeStyle Lite Strips Strip See Rx Instructions .ROUTE .MEDSUPPLY Qty: 100 4RF Rx Instructions: test blood sugar once a day, 90 days (DME) blood-glucose meter [FreeStyle Lite Meter] Kit See Rx Instructions .ROUTE .MEDSUPPLY Qty: 1 0RF Rx Instructions: test blood sugar once a day, duration 999 days (DME) lancets [FreeStyle Lancets] 28 gauge misc See Rx Instructions .ROUTE .MEDSUPPLY Qty: 100 4RF Rx Instructions: As directed, 90 days albuterol sulfate 90 mcg/actuation HFA aerosol inhaler 2 puff inhalation Q4-6H PRN cyclobenzaprine 10 mg tablet 10 mg PO TID PRN (Reason: muscle spasm) Qty: 30 0RF albuterol sulfate 90 mcg/actuation HFA aerosol inhaler 1 inh inhalation Q6H PRN (Reason: for wheezing) 30 Days Qty: 8.5 10RF sulfamethoxazole-trimethoprim [Bactrim DS] 800-160 mg tablet 1 tab PO Q12H 5 Days Qty: 10 0RF omeprazole 20 mg tablet,delayed release (DR/EC) 20 mg PO DAILY 90 Days Qty: 90 2RF codeine-guaifenesin 10-100 mg/5 mL liquid 5 ml PO Q6H PRN (Reason: allergy symptoms) Qty: 118 0RF ibuprofen 800 mg tablet 800 mg PO Q8H acetaminophen 500 mg capsule 1,000 mg PO Q6H PRN Referrals: Dennis Elizabeth MD [Primary Care Provider] - 3 days
--- NOTE | 2023-10-28 10:31 | PC.NURSE ---
a&ox4, vss and up to date. pt presents to the ED w/ increase in dizziness/lightheadedness/weakness that causes her difficulty to ambulate. pt comes back to ED in wheelchair d/t sx. normally walks independently. pt also c/o blurry vision but states she has not seen an orthopedic dentist in years. pt denies any pain. pt states she was here on thursday and had a full work up but sx have no subsided since. no sob/wob noted. respirations even and unlabored. call cantu placed within reach.
[2023-10-28 10:33] LABS: Anion Gap 12 (12-20); Blood Urea Nitrogen 9 mg/dL (9-16); Calcium 9.6 mg/dL (8.4-10.2); Carbon Dioxide 31 mmol/L (22-29); Chloride 104 mmol/L (96-108); Creatinine Clr Calc Pharmacy 100.7; Estimated Glomerular Filt Rate > 60; Glucose Random 121 mg/dL (60-115); Potassium 4.2 mmol/L (3.3-5.1); Sodium 143 mmol/L (135-145)
[2023-10-28] MEDS: Meclizine HCl 25 MG TABLET 50 MG PO (10:46)
--- NOTE | 2023-10-28 10:46 | PC.NURSE ---
pt returned from xray at this time. medication administered per provider order.
[2023-10-28 10:51] LABS: Troponin-I High Sensitivity < 2.7 ng/L (<3.5-17.0)
--- NOTE | 2023-10-28 12:38 | PC.NURSE ---
pt currently asleep/resting in no apparent distress at this time. respirations remain even and unlabored. call cantu placed within reach.
[2023-10-28 12:53] VITALS: BP 157/79; PULSE 63; RESP 16; O2SAT 96
== END 2023-10-28 12:54 | disposition home or self-care (01) ==
PROVIDERS: Emergency Provider Emergency Medicine; PCP Family Medicine
DX: R42 Dizziness and giddiness (principal); H81.20 Vestibular neuronitis, unspecified ear; R07.9 Chest pain, unspecified; R73.03 Prediabetes; I10 Essential (primary) hypertension; E78.5 Hyperlipidemia, unspecified; Z79.02 Long term (current) use of antithrombotics/antiplatelets; Z79.899 Other long term (current) drug therapy
CPT/HCPCS: 36415; 71046; 80048; 84484; 85025; 85730; 93005; 99283; 99284

== ENCOUNTER → 2023-10-28 09:18 | Outpatient (BNV) | payer OTHER, SELFPAY | PROVIDERS: Emergency Provider Emergency Medicine; PCP Family Medicine; Visit Provider Internal Medicine Cardiovascular Disease | DX: R94.31 Abnormal electrocardiogram [ECG] [EKG] (principal) | CPT/HCPCS: 93010 ==

== ENCOUNTER 2023-10-29 12:27 | Outpatient (AMB) | payer OTHER, SELFPAY ==
--- NOTE | 2023-10-29 12:27 | MHC.OFFVIS ---
Intake Vital Signs 10/29/23 12:29 Height 5 ft 3 in Weight 245 lb BMI 43.4 BP 142/74 H Intake Visit Reasons: emb results Animal Assistant Required: No Allergies smallpox vaccine,live Allergy (Severe, Verified 10/29/23 12:30) seizures, grand mal aspirin Allergy (Mild, Verified 10/29/23 12:30) Hives bupropion [From Wellbutrin] Allergy (Mild, Verified 10/29/23 12:30) Palpitations morphine Allergy (Mild, Verified 10/29/23 12:30) Rash Is last menstrual period known: No Post menopausal: Yes Patient : No HPI HPI Comments History of Present Illness Details The patient is presenting after endometrial biopsy. The patient has no complaints, no vaginal bleeding, no feverishness chills or abdominal pain. Endometrial biopsy pathology showed the following: Endometrium, biopsy: Superficial strips of benign atrophic endometrium, and benign squamous and endocervical glandular epithelium; no atypia or carcinoma (see comment). Comment: The findings do not explain a thickened endometrium Pelvic ultrasound done in 08/10 showed the following: Uterus: The uterus is anteverted and anteflexed and enlarged measuring 9.9 x 7.2 x 7.8 cm for a volume of 291 mL. The double wall endometrial thickness is 0.8 mm. At least 4 uterine fibroids are seen. A pedunculated/subserosal fibroid at the fundus has increased in size from maximal dimension of 3.4 cm to 5.5 cm. Other smaller fibroids are seen ranging in size from 2.5 to 4.0 cm. A single large 5.7 cm fibroid seen previously is not identified with certainty on the current study. Adnexa: Only the right ovary could be visualized and measures 1.7 x 1.2 x 1.5 cm for a volume of 1.6 mL. No free fluid present in the cul-de-sac. [facility] Medical History Uterine polyp History of palpitations Depression Fibroids Ovarian torsion Other and unspecified hyperlipidemia Surgical History Hx of colonoscopy History of D&C History of tonsillectomy History of arthroscopy of left knee History of laparoscopic appendectomy History of laparoscopic cholecystectomy Family History Father High cholesterol Mother HTN (hypertension) Maternal Aunt History of breast cancer Other Mental health disorder Social History Housing: Apartment Alcohol intake: current Alcohol intake frequency: holidays/special occasions only Patient Tobacco Use Status: Never used Tobacco e-Cigarette/Vaping Use: Never Used Second Hand Smoke Exposure: Yes Patient : No service: No 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 occupational exposures/hazards: No Cognitive needs: No Hearing needs: No Vision needs: Yes (Glasses) Female Reproductive History Menstrual control method: none Review of Systems Const All systems reviewed & are unremarkable except as noted in HPI and below Reports as per HPI and Reports no additional complaints GI Reports no additional complaints Reports no additional complaints Physical Exam Vital Signs: Last Vital Signs BP 142/74 H 10/29/23 12:29 BMI result Body Mass Index 43.4 Assessment & Plan Assessment & Plan (1) Endometrial thickening on ultrasound: Code(s): R93.89 - Abnormal findings on diagnostic imaging of other specified body structures Plan: Discussed with the patient the results of the endometrial biopsy showing atrophic endometrium. Discussed with the patient the sensitivity, specificity, positive and negative predictive value, of endometrial biopsy in detecting endometrial pathology including but not limited to endometrial hyperplasia, cancer and other pathology; instructed the patient to call in case is vaginal bleeding bleeding occurred, the next step will be to proceed with further endometrial sampling evaluation to rule out endometrial pathology. (2) Uterine myoma: Comment: Enlarging in menopause Code(s): D25.9 - Leiomyoma of uterus, unspecified Plan: Discussed with the patient the findings on pelvic ultrasound showing growing myoma in menopause & the risk of myosarcoma; discussed with the patient the options of treatment including expectant management versus hysterectomy; the pros and cons, risks benefits of each approach were discussed with the patient including the fact that in cases of myosarcoma, surgical treatment can lead to early diagnosis and positively affects the prognosis; after further discussion, the patient decided to proceed with surgical management. Since there is no feather stitcher oncologist available on the medical staff at [facility] will refer the patient to [facility] feather stitcher Oncology for further management Orders: Referrals Gynecologic Oncology Referral D25.9 - Leiomyoma of uterus, unspecified Coding Level of Care Code Est Pt Level 3 (81777) Diagnoses Endometrial thickening on ultrasound R93.89 Uterine myoma D25.9
[2023-10-29 12:29] VITALS: BP 142/74; BMI 43.4
== END 2023-10-29 12:53 | disposition home or self-care (01) ==
LOC: HO.HWS 12:27
PROVIDERS: PCP Family Medicine; Visit Provider Obstetrics & Gynecology
DX: R93.89 Abnormal findings on diagnostic imaging of other specified body structures (principal); D25.9 Leiomyoma of uterus, unspecified
CPT/HCPCS: 99213

== ENCOUNTER → 2023-10-29 12:27 | Outpatient (BNVA) | payer OTHER, SELFPAY | PROVIDERS: PCP Family Medicine; Visit Provider Obstetrics & Gynecology ==

== ENCOUNTER 2023-11-04 08:32 | Outpatient (AMB) | payer OTHER, SELFPAY ==
[2023-11-04 08:36] VITALS: BP 130/80; PULSE 75; TEMP 36.4; O2SAT 96; BMI 44.1
--- NOTE | 2023-11-04 08:36 | MHC.OFFWIV ---
Intake Vital Signs 11/04/23 08:36 Height 5 ft 3 in Weight 249 lb BMI 44.1 BP 130/80 Blood Pressure Location Lt brachial Pulse 75 Pulse Source Pulse Oximeter Temp 97.5 F Temp Source Oral Pulse Oximetry (%) 96 Oxygen Delivery Method Room Air Intake Visit Reasons: ED, [facility], Dizzy, ? of inner Ear Intake Note: Patient is here with dizzy spells since last Thursday morning, last one this morning. Patient Tobacco Use Status: Never used Tobacco Allergies smallpox vaccine,live Allergy (Severe, Verified 11/04/23 08:57) seizures, grand mal aspirin Allergy (Mild, Verified 11/04/23 08:57) Hives bupropion [From Wellbutrin] Allergy (Mild, Verified 11/04/23 08:57) Palpitations morphine Allergy (Mild, Verified 11/04/23 08:57) Rash Medication List - Last Reconciled 11/04/23 by Uyen Rikc, TELECINE OPERATOR- acetaminophen 1,000 mg PO Q6H PRN albuterol sulfate 90 mcg/actuation 2 puffs inhalation Q4-6H PRN albuterol sulfate 90 mcg/actuation 1 inh inhalation Q6H PRN 1 month blood sugar diagnostic (FreeStyle Lite Strips) test blood sugar once a day, 90 days blood-glucose meter (FreeStyle Lite Meter kit) test blood sugar once a day, duration 999 days codeine-guaifenesin 10-100 mg/5 mL 5 mL PO Q6H PRN cyclobenzaprine 10 mg PO TID PRN duloxetine 20 mg PO DAILY ibuprofen 800 mg PO Q8H lamotrigine (Lamictal) 150 mg PO DAILY lancets (FreeStyle Lancets) As directed, 90 days meclizine 25 mg PO TID PRN omeprazole 20 mg PO DAILY 90 days pramipexole 0.25 mg PO BEDTIME rosuvastatin 20 mg PO DAILY sulfamethoxazole-trimethoprim 800-160 mg (Bactrim DS) 1 tab PO Q12H 5 days Do you need a note to return to daycare/school/sports/work: Yes HPI HPI Comments History of Present Illness Details Here today for HDF 10/26/23 while working, lightheaded dizzy ff'd by nausea and sweating assoc w/ stomach cramps At this time, BS was 114. IVF were admin & she was placed in lying position She went to the ED at [facility] 10/26/23 - work up reviewed by myself. CT scan of brain, MRI of brain done and WNL. Labs and EKG unrevealing. Was referred to Cards at [facility]. Initial appt tomorrow. Went back to work 10/28/23 and the same thing happened. Back to the ED. Work up again negative. REviewed by myself. Episode of dizzy spells present today, has been there for 1 hour. Started when getting out of the shower. When eyes are closed, she is spinning with the room. has tried meclizine w/o effect. No known alleviating or exacerbating factors. Denies recent medicine changes, travel, head trauma, LOC, chest pain. [facility] Medical History Uterine polyp History of palpitations Depression Fibroids Ovarian torsion Other and unspecified hyperlipidemia Surgical History Hx of colonoscopy History of D&C History of tonsillectomy History of arthroscopy of left knee History of laparoscopic appendectomy History of laparoscopic cholecystectomy Family History Father High cholesterol Mother HTN (hypertension) Maternal Aunt History of breast cancer Other Mental health disorder Social History Housing: Apartment Alcohol intake: current Alcohol intake frequency: holidays/special occasions only Patient Tobacco Use Status: Never used Tobacco e-Cigarette/Vaping Use: Never Used Second Hand Smoke Exposure: Yes service: No 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 occupational exposures/hazards: No Cognitive needs: No Hearing needs: No Vision needs: Yes (Glasses) Review of Systems Const All systems reviewed & are unremarkable except as noted in HPI and below Physical Exam Vital Signs: Last Vital Signs Temp 97.5 F 11/04/23 08:36 Pulse 75 11/04/23 08:36 BP 130/80 11/04/23 08:36 Pulse Ox 96 11/04/23 08:36 Oxygen Delivery Method Room Air 11/04/23 08:36 BMI result Body Mass Index 44.1 Const Other: awake alert NAD accompanied by Atraumatic PERRLA, + lateral nystagmus bilat, wearing glasses TM intact, clear bilat Mild + terry hallpike bilat L>R RRR LS CTAB MARX x 4 Assessment & Plan Assessment & Plan (1) Hospital discharge follow-up: Code(s): Z09 - Encounter for follow-up examination after completed treatment for conditions other than malignant neoplasm Plan: . (2) BPPV (benign paroxysmal positional vertigo): Code(s): H81.10 - Benign paroxysmal vertigo, unspecified ear Qualifiers: Laterality: bilateral Qualified Code(s): H81.13 - Benign paroxysmal vertigo, bilateral Plan: . (3) Nystagmus due to benign paroxysmal positional vertigo: Code(s): H81.10 - Benign paroxysmal vertigo, unspecified ear Plan: . Orders: Orders PT Evaluation and Treatment Today H81.10 - Benign paroxysmal vertigo, unspecified ear Patient Instructions: 60 minutes was spent reviewing imaging, labs ordered by Emergency Room MD, providing education, answering questions and developing treatment plan. Use meclizine PRN - although this may not provide a lot of benefit. Schedule eye exam and get new glasses, as needed FU with Cards tomorrow as scheduled and PCP 11/14/23 as scheduled, sooner PRN Look up exercises at home to help BPPV. No driving while sx present Focus on static object when dizziness occurs. Work note provided. If something else is needed, please send portal message. Coding Level of Care Code Est Pt Level 5 (66201) Diagnoses Hospital discharge follow-up Z09 Benign paroxysmal positional vertigo due to bilateral vestibular disorder H81.13 Laterality: bilateral Nystagmus due to benign paroxysmal positional vertigo H81.10
== END 2023-11-04 09:24 | disposition home or self-care (01) ==
PROVIDERS: PCP Family Medicine; Visit Provider Nurse Practitioner Family
DX: H81.13 Benign paroxysmal vertigo, bilateral (principal); Z09 Encounter for follow-up examination after completed treatment for conditions other than malignant neoplasm
CPT/HCPCS: 99215

== ENCOUNTER 2023-11-05 09:24 | Outpatient (AMB) | payer OTHER, SELFPAY ==
--- NOTE | 2023-11-05 09:38 | A.OFFVIS_ITS ---
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 Required: No Allergies smallpox vaccine,live Allergy (Severe, Verified 11/05/23 09:41) seizures, grand mal aspirin Allergy (Mild, Verified 11/05/23 09:41) Hives bupropion [From Wellbutrin] Allergy (Mild, Verified 11/05/23 09:41) Palpitations morphine Allergy (Mild, Verified 11/05/23 09:41) Rash Medication List - Last Reconciled 11/05/23 by FRANCIS Mast acetaminophen 1,000 mg PO Q6H PRN albuterol sulfate 90 mcg/actuation 2 puffs inhalation Q4-6H PRN albuterol sulfate 90 mcg/actuation 1 inh inhalation Q6H PRN 1 month blood sugar diagnostic (FreeStyle Lite Strips) test blood sugar once a day, 90 days blood-glucose meter (FreeStyle Lite Meter kit) test blood sugar once a day, duration 999 days cyclobenzaprine 10 mg PO TID PRN duloxetine 20 mg PO DAILY ibuprofen 800 mg PO Q8H lamotrigine (Lamictal) 150 mg PO DAILY lancets (FreeStyle Lancets) As directed, 90 days meclizine 25 mg PO TID PRN omeprazole 20 mg PO DAILY 90 days pramipexole 0.25 mg PO BEDTIME rosuvastatin 20 mg PO DAILY HPI H[facility]/Near-Syncope/10-26 HPI Details Cherrie is a 58-year-old female with past medical history of morbid obesity, prediabetes, hyperlipidemia who 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 She did have ER evaluation with no acute findings. She was treated with IV fluids and thought to have vasovagal event. At that time she was referred to Cardiology in follow-up. She was seen again in the emergency room 2 days later with report of lightheadedness and thought to have vertigo. She has seen her PCP and physical therapy and meclizine has been ordered for her. Today she reports that she continues to have a feeling of lightheadedness. She says it does not go away completely but has episodes where it becomes more noticeable. She has not heard back from physical therapy yet for an appoin tment. She tried the meclizine and did not like how it made her feel. She does notice periodic heart palpitations but does not feel it is associated with her lightheadedness. No chest discomfort at rest or with activity. No shortness of breath, PND, orthopnea or edema. She describes having an episode of presyncope when she was a teenager, but none since that time. [facility] Medical History Uterine polyp History of palpitations Depression Fibroids Ovarian torsion Other and unspecified hyperlipidemia Surgical History Hx of colonoscopy History of D&C History of tonsillectomy History of arthroscopy of left knee History of laparoscopic appendectomy History of laparoscopic cholecystectomy Family History Father High cholesterol Mother HTN (hypertension) Maternal Aunt History of breast cancer Other Mental health disorder Social History Housing: Apartment Alcohol intake: current Alcohol intake frequency: holidays/special occasions only Patient Tobacco Use Status: Never used Tobacco e-Cigarette/Vaping Use: Never Used Second Hand Smoke Exposure: Yes service: No 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 occupational exposures/hazards: No Cognitive needs: No Hearing needs: No Vision needs: Yes (Glasses) Review of Systems Const Details: Feeling lightheaded All systems reviewed & are unremarkable except as noted in HPI and below Eyes Denies other visual disturbances ENT Reports dizziness Card Denies chest pain, Denies chest pain at rest, Denies chest pain with activity, Denies rapid heart rate, Denies pedal edema, Denies edema, Denies leg edema, Denies lightheadedness, Denies palpitations, Denies dyspnea, Denies dyspnea on exertion and Denies orthopnea Resp Denies cough, Denies dyspnea and Denies dyspnea on exertion GI Denies hematochezia and Denies change in stool character Musc Denies abnormal gait, Denies limited range of motion, Denies muscle cramps, Denies muscle weakness, Denies numbness, Denies radiating pain into limb, Denies stiffness and Denies tingling Neuro Denies abnormal gait, Reports dizziness, Denies numbness and Denies tingling Endo Denies palpitations Physical Exam Vital Signs: Last Vital Signs Pulse 82 11/05/23 09:39 BP 120/82 11/05/23 09:39 BMI result Body Mass Index 44.2 Const General: cooperative, healthy appearing, comfortable and no acute distress Orientation/consciousness: patient oriented x3 Neck Neck: Yes normal visual inspection Resp Effort & Inspection: normal respiratory effort Auscultation: clear to auscultation bilaterally, no crackles, no rales, no rhonchi and no wheezes Cardio Jugular venous distension: no JVD Rate: regular rate Rhythm: regular rhythm Heart sounds: S1 normal heart sound present, S2 normal heart sound present, no murmurs and no rubs Neuro General: patient oriented x3 Extrem General: Yes normal to inspection and No no pedal edema Psych Appearance: grossly normal Mental Status: mental status grossly normal Speech and movement: Normal speech and movement present Assessment & Plan Assessment & Plan (1) Near syncope: Code(s): R55 - Syncope and collapse Plan: Episode of presyncope while working. Patient was alternating between standing and sitting and then became lightheaded, sweating, nauseous. She was helped into a laying down position, IV started and fluids given. She was transported to the emergency room her evaluation. A CT scan of the head initially did show a hypodense area in the medulla however MRI of the brain was normal. EKG was also normal. She was thought to have an episode of vasovagal presyncope. She was seen in the emergency room again 2 days later for lightheadedness. It was then determined that she most likely has vertigo. She has seen her PCP and has orders for meclizine as well as physical therapy for position therapy. At this time she continues to have a feeling of mild lightheadedness. She does report intermittent heart palpitations but they are not associated with her lightheadedness. She has not orthostatic on my examination today. Blood pressure/pulse sitting 132/80, 68, blood pressure/pulse standing 132/86, 74. Will have her follow through with treatment for vertigo. Reviewed need for good hydration, recognizing symptoms and sit/lay down as needed. No driving while symptomatic. For completeness will check an echocardiogram and Holter monitor. Not likely to have arrhythmia causing her episodes however will assess. If position therapy does not improve her condition and has any recurrent episodes of presyncope, will plan for tilt table test. Cardiology follow-up in 1 month, sooner if needed (2) BPPV (benign paroxysmal positional vertigo): Code(s): H81.10 - Benign paroxysmal vertigo, unspecified ear Qualifiers: Laterality: bilateral Qualified Code(s): H81.13 - Benign paroxysmal vertigo, bilateral Plan: As above (3) Hospital discharge follow-up: Code(s): Z09 - Encounter for follow-up examination after completed treatment for conditions other than malignant neoplasm Plan: As above Plan Time spent on chart review, documentation, interview and assessment Orders: Orders ECG 3 day holter monitor Today R42 - Dizziness and giddiness, R55 - Syncope and collapse CA echo transthoracic complete Today R42 - Dizziness and giddiness, R55 - Syncope and collapse Coding Level of Care Code Est Pt Level 4 (65003) Diagnoses Near syncope R55 Benign paroxysmal positional vertigo due to bilateral vestibular disorder H81.13 Laterality: bilateral Hospital discharge follow-up Z09 Time Spent (min) 28
[2023-11-05 09:39] VITALS: BP 120/82; PULSE 82; BMI 44.2
== END 2023-11-05 10:32 | disposition home or self-care (01) ==
PROVIDERS: PCP Family Medicine; Visit Provider Nurse Practitioner Family
DX: R55 Syncope and collapse (principal); H81.13 Benign paroxysmal vertigo, bilateral; Z09 Encounter for follow-up examination after completed treatment for conditions other than malignant neoplasm
CPT/HCPCS: 99214

== ENCOUNTER 2023-11-05 09:24 | Outpatient (REF) | payer OTHER, SELFPAY ==
[2023-11-05 11:01] LABS: Appearance Urine Clear; Color Urine Yellow; Glucose Urine UA Negative (Negative); Leukocyte Esterase Urine Small (1+) (Negative); Nitrite Urine Negative (Negative); PH 5.5 (5.0-9.0); Specific Gravity - Urine 1.025 (1.005-1.025); UMIC TRIGGER UACC YES; Urine Blood Trace (Negative); Urine Ketones Negative (Negative); Urine Protein Negative (Neg-Trace)
[2023-11-05 11:03] LABS: Bacteria Urine None Seen (None Seen); Hyaline Casts Urine 0-2 /LPF (0-2); UACC Culture Trigger YES
[2023-11-05 11:29] LABS: Alanine Aminotransferase 47 U/L (0-31); Albumin Level 4.5 g/dL (3.5-5.0); Alkaline Phosphatase 84 U/L (39-117); Anion Gap 13 (12-20); Aspartate Amino Transferase 29 U/L (5-31); Bilirubin Total 0.4 mg/dL (0.0-1.0); Blood Urea Nitrogen 13 mg/dL (9-16); Calcium 9.9 mg/dL (8.4-10.2); Carbon Dioxide 28 mmol/L (22-29); Chloride 106 mmol/L (96-108); Estimated Glomerular Filt Rate > 60; Glucose Fasting 104 mg/dL (60-99); Potassium 4.4 mmol/L (3.3-5.1); Sodium 143 mmol/L (135-145); Total Protein 7.7 g/dL (6.5-8.0)
== END 2023-11-05 09:25 | disposition home or self-care (01) ==
LOC: HO.LAB 09:24
PROVIDERS: Absent Provider Family Medicine; PCP Family Medicine; Visit Provider Nurse Practitioner Family
DX: Z00.00 Encounter for general adult medical examination without abnormal findings (principal); R74.8 Abnormal levels of other serum enzymes; R55 Syncope and collapse; H81.13 Benign paroxysmal vertigo, bilateral; R30.0 Dysuria
CPT/HCPCS: 36415; 80053; 81001; 81003; 87086

== ENCOUNTER 2023-11-17 12:30 | Outpatient (AMB) | payer OTHER, SELFPAY ==
--- NOTE | 2023-11-17 12:42 | MHC.PC.OV ---
Vital Signs 11/17/23 12:49 Height 5 ft 3 in Weight 250 lb 8 oz BMI 44.4 BP 120/80 Blood Pressure Location Lt brachial Position Sitting Pulse 84 Pulse Source Pulse Oximeter Pulse Oximetry (%) 98 Oxygen Delivery Method Room Air Intake Visit Reasons: pfmla paperwork Intake Note: Patient is here today for PFMLA paperwork Property And Supply Officer Required: No Car Attendant: Not Required per policy Accompanied by: Self / Same As Patient Allergies smallpox vaccine,live Allergy (Severe, Verified 11/17/23 13:03) seizures, grand mal aspirin Allergy (Mild, Verified 11/17/23 13:03) Hives bupropion [From Wellbutrin] Allergy (Mild, Verified 11/17/23 13:03) Palpitations morphine Allergy (Mild, Verified 11/17/23 13:03) Rash Medication List - Last Reconciled 11/17/23 by Uyen Rick, NETWORK SUPPORT MANAGER- acetaminophen 1,000 mg PO Q6H PRN albuterol sulfate 90 mcg/actuation 2 puffs inhalation Q4-6H PRN albuterol sulfate 90 mcg/actuation 1 inh inhalation Q6H PRN 1 month blood sugar diagnostic (FreeStyle Lite Strips) test blood sugar once a day, 90 days blood-glucose meter (FreeStyle Lite Meter kit) test blood sugar once a day, duration 999 days cyclobenzaprine 10 mg PO TID PRN duloxetine 20 mg PO DAILY ibuprofen 800 mg PO Q8H lamotrigine (Lamictal) 150 mg PO DAILY lancets (FreeStyle Lancets) As directed, 90 days meclizine 25 mg PO TID PRN omeprazole 20 mg PO DAILY 90 days pramipexole 0.25 mg PO BEDTIME rosuvastatin 20 mg PO DAILY Tobacco use date assessed: 11/17/23 Dental Screening Dental Screen Date: 11/17/23 Did you have a dental visit in the last 12 months?: No Did you have a dental problem in the last 6 months where you did not have access to dental care?: No Was dental information given to patient?: No HPI HPI Comments History of Present Illness Details Here today to have [place] paperwork completed for her employer. At last visit: 10/26/23 while working, lightheaded dizzy ff'd by nausea and sweating assoc w/ stomach crampsAt this time, BS was 114. IVF were admin & she was placed in lying position She went to the ED at [facility] [place] 10/26/23 - work up reviewed by myself. CT scan of brain, MRI of brain done and WNL. Labs and EKG unrevealing. Was referred to Cards at [facility] [place]. Initial appt tomorrow. Went back to work 10/28/23 and the same thing happened. Back to the ED. Work up again negative. REviewed by myself. Episode of dizzy spells present today, has been there for 1 hour. Started when getting out of the shower. When eyes are closed, she is spinning with the room. has tried meclizine w/o effect. No known alleviating or exacerbating factors. Denies recent medicine changes, travel, head trauma, LOC, chest pain. Since this visit she reports that she has started vestibular therapy [facility]. She admits that this is helping. However she has had to miss a few sessions due to the dizziness causing vomiting. Meclizine does not seem to help. 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 Bending over causes her symptoms. Along with sudden head turning. [facility] Medical History Uterine polyp History of palpitations Depression Fibroids Ovarian torsion Other and unspecified hyperlipidemia Surgical History Hx of colonoscopy History of D&C History of tonsillectomy History of arthroscopy of left knee History of laparoscopic appendectomy History of laparoscopic cholecystectomy Family History Father High cholesterol Mother HTN (hypertension) Maternal Aunt History of breast cancer Other Mental health disorder Social History Housing: Apartment Alcohol intake: current Alcohol intake frequency: holidays/special occasions only Patient Tobacco Use Status: Never used Tobacco e-Cigarette/Vaping Use: Never Used Second Hand Smoke Exposure: No service: No 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 1. Little interest or pleasure in doing things: nearly every day 2. Feeling down, depressed, or hopeless: nearly every day 3. Trouble falling or staying asleep, or sleeping too much: nearly every day 4. Feeling tired or having little energy: nearly every day 5. Poor appetite or overeating: not at all 6. Feeling bad about yourself - or that you are a failure or have let yourself or your family down: several days 7. Trouble concentrating on things, such as reading the newspaper or watching television: not at all 8. Moving or speaking so slowly that other people could have noticed. Or the opposite - being so fidgety or restless that you have been moving around a lot more than usual: several days 9. Thoughts that you would be better off or of hurting yourself in some way: not at all Total score: 14 Source: Developed by Drs. Benjamin Lr, Mer Langley, Alex Odonnell and colleagues, with an educational mi from [employer]. Thrive Questionnaire Date Thrive assessed: 11/17/23 I am a: Patient What is your living situation today?: I have a steady place to live Within the past 12 months, did the food you bought not last and you didn't have the money to get more?: Never true Within the past 12 months, did you worry whether your food would run out before you got money to buy more?: Never true Do you have trouble paying for medicines?: No Do you have trouble getting transportation to medical appointments?: No Do you have trouble paying your heating and electricity bill?: No Do you have trouble taking care of your child, family member or friend?: No Do you have trouble with day-to-day activities such as bathing, preparing meals, shopping, managing finances, etc.?: Yes Are you currently unemployed and looking for a job?: No Are you interested in more education?: No Currently or been in a relationship where the following occur: no concerns reported THRIVE Score: 0 AUDIT C Alcohol Use Questionnaire (AUDIT-C) 1. How often do you have a drink containing alcohol?: Monthly or less Total Score: 1 JILLIAN-7 AMB Questionnaire JILLIAN-7 Date JILLIAN - 7 assessed: 11/17/23 Feeling nervous, anxious, or on edge: 3 = Nearly every day Not being able to stop or control worryin = Nearly every day Worrying too much about different things: 3 = Nearly every day Trouble relaxin = More than half the days Being so restless that it is hard to sit still: 1 = Several days Becoming easily annoyed or irritable: 0 = Not at all Feeling afraid as if something awful might happen: 3 = Nearly every day Total JILLIAN-7 score (0-4 normal; 5-9 mild; 10-14 moderate; 15-21 severe): 15 Source: Developed by Drs. Benjamin Lr, Mer Langley, Alex Odonnell and colleagues, with an educational mi from [employer]. Review of Systems Const All systems reviewed & are unremarkable except as noted in HPI and below Physical exam (Primary Care) Vital Signs: Last Vital Signs Pulse 84 11/17/23 12:49 BP 120/80 11/17/23 12:49 Pulse Ox 98 11/17/23 12:49 Oxygen Delivery Method Room Air 11/17/23 12:49 BMI result Body Mass Index 44.4 Tobacco/Smoking Status: Tobacco use Status Tobacco use date assessed 11/17/23 11/17/23 12:57 Patient Tobacco Use Status Never used Tobacco 11/17/23 12:44 e-Cigarette/Vaping Use Never Used 11/17/23 12:44 PHQ-9: PHQ-9 Score PHQ-9: Total score 14 11/17/23 13:11 Thrive Assessment: Date of Thrive Assessment Date Thrive assessed 11/17/23 11/17/23 12:57 Currently or been in a relationship where the following occur: no concerns reported Assessment and Plan Assessment & Plan (1) Nystagmus due to benign paroxysmal positional vertigo: Code(s): H81.10 - Benign paroxysmal vertigo, unspecified ear (2) BPPV (benign paroxysmal positional vertigo): Code(s): H81.10 - Benign paroxysmal vertigo, unspecified ear Qualifiers: Laterality: bilateral Qualified Code(s): H81.13 - Benign paroxysmal vertigo, bilateral (3) Encounters for administrative purposes: Code(s): Z02.9 - Encounter for administrative examinations, unspecified Plan P FMLA paperwork completed with her today. The effective date is 10/26/2023 through 11/28/2023 for continuous leave. I provided her with a work note to return to work 11/30/2023. I have let her know that if her symptoms are not better or she feels she needs to continue with leave that she should follow up with our office and we can make a recertification to her leave. I have advised her that the goal would be to get her on an intermittent leave and back to work as soon as possible. As she is having vomiting and this is preventing her from participating in physical therapy I have sent a new prescription for Zofran. Advised that she should take this if she has symptoms and perhaps consider taking this before she goes to physical therapy to prevent vomiting. She is aware that she will need to follow up with were connection to be officially cleared to return to work. Total time spent caring for the patient today was 40 minutes. This includes time spent before the visit reviewing the chart, time spent during the visit, and time spent after the visit on documentation This note is constructed using voice recognition software. While every effort has been made to ensure accuracy in senior maintenance machinist, still errors may have been included Sometimes, these errors may affect the content or meaning of the given sentence . Medications: New ondansetron HCl 4 mg PO Q8H PRN 15 tabs 0RF nausea and vomiting 3 days Coding Level of Care Code Est Pt Level 4 (51428) Diagnoses Nystagmus due to benign paroxysmal positional vertigo H81.10 Benign paroxysmal positional vertigo due to bilateral vestibular disorder H81.13 Laterality: bilateral Encounters for administrative purposes Z02.9
[2023-11-17 12:49] VITALS: BP 120/80; PULSE 84; O2SAT 98; BMI 44.4
== END 2023-11-17 13:21 | disposition home or self-care (01) ==
PROVIDERS: PCP Family Medicine; Visit Provider Nurse Practitioner Family
DX: H81.13 Benign paroxysmal vertigo, bilateral (principal)
CPT/HCPCS: 99214

== ENCOUNTER → 2023-11-18 14:43 | Outpatient (REF) | payer OTHER, SELFPAY ==
--- NOTE | 2023-11-18 14:47 | HM_ITS ---
* Total monitoring time 3 days. * Underlying rhythm is sinus with an average ventricular rate of 67/Min. Range 46 to 129/Min. * Rare supraventricular ectopy. * No sustained arrhythmias. * No significant pauses or AV blocks. * Various symptoms listed including dizziness, palpitations, skipping, coughing correlate with sinus rhythm. MTDD
--- NOTE | 2023-11-18 14:47 | CA_ITS ---
Transthoracic Echocardiogram Patient (Last, First, Middle): Cherrie Yusuf E Gender: Female Date of : 1965 Age: 58 Procedure Date: 11/18/2023 Procedure Type: Transthoracic Echocardiogram Location: OP Height: 160.02 cm Weight: 113.4 kg BSA: 2.13 m2 Heart Rate: 68 bpm BP: 120 / 80 mmHg Needle Straightener: NADER Referring MD: Zohra Quezada LIVE TRUCK OPERATORShailesh Performance Specialist: Estuardo Pina MD Symptoms: R55 - Syncope and collapse Study Quality: Adequate w contrast ECG Rhythm: Sinus Conclusions: - Essentially normal study Findings Procedure Information Contrast agent, definity, is being given per protocol without apparent complications. The quality of the study was technically difficult. The study quality is limited by patients body habitus. Left Ventricle Normal left ventricular size, thickness, and systolic function. The visually estimated ejection fraction is between 65-70%. Spectral Doppler is indicative of a normal filling pattern. Right Ventricle Normal right ventricular cavity size and systolic function. Atria Both atria are normal in size. Interatrial shunt cannot be excluded. Aortic Valve Normal aortic valve structure and function. There is no aortic valve stenosis. There is no aortic valve regurgitation. Mitral Valve Normal mitral valve structure and function. There is trace mitral valve regurgitation. There is no mitral valve stenosis. Pulmonic Valve The pulmonic valve is likely normal. Tricuspid Valve Normal tricuspid valve structure. There is trace tricuspid valve regurgitation. The right ventricular systolic pressure is normal. The right ventricular systolic pressure is 24 mmHg. Normal right atrial pressure. There is no evidence of pulmonary hypertension. Great Vessels The pulmonary artery was not well visualized. There is no dilatation of the ascending aorta measuring 3.20 cm. Venous The inferior vena cava is normal in size and collapses greater than 50% with inspiration. Pericardium/Pleural There is no evidence of pericardial effusion. Prior Study Comparison No significant change compared to prior study dated: 01/10/2021. delay in reporting due to technical issues Measurements 2D Linear Measurements IVSd: 0.78 0.6-0.9/0.6-1.0 cm LVIDd: 5.36 3.9-5.3/4.2-5.9 cm LVIDd Index: 2.52 2.4-3.2/2.2-3.1 cm/m2 LVIDs: 3.31 2.0-3.6 cm LVPWd: 0.71 0.7-1.1 cm LA Diam: 3.50 2.7-3.8/3.0-4.0 cm LAIDs Index: 1.64 1.5-2.3 cm/m2 LV Mass: 173.69 67-162/88-224 g LV Mass Index: 81.54 43-95/49-115 g/m2 LVOT Diam: 1.90 3.0+(-)1.3 cm 2D Systolic Function EF 4C: 65.20 >55% EF 2C: 68.80 >55% EF BiP: 67.20 >55% Mitral Valve MV Pk E: 0.81 MV PK A: 0.67 MV Decel Time: 212.00 E/A: 1.20 E'Lateral: 12.20 E'Medial: 7.07 E/E' Med: 11.40 E/E' Lat: 6.60 PHT: 62.00 MVA PHT: 3.55 Decel [place]: 3.79 Aortic Valve AoV Pk German: 1.32 AoV Pk Grad: 7.00 MADAI: 2.62 LVOT LVOT Pk German: 1.22 LVOT Mn German: 0.82 LVOT VTI: 0.24 LVOT Pk Grad: 6.00 LVOT Mn Grad: 3.00 LVOT Diam: 1.90 LVOT Area: 2.84 Diastolic Function MV Pk E: 0.81 MV Pk A: 0.67 E/A: 1.20 E'Medial: 7.07 E/E' Med: 11.40 E' Laterial: 12.20 E/E' Lat: 6.60 Right Ventricle TAPSE (mm): 16.90 TVS' German: 10.80 Tricuspid Valve TR Pk German: 2.03 TR Pk Grad: 16.00 RA Press: 8.00 RVSP: 24.00 Great Vessels Aorta Sinus of Valsalva: 2.90 2.0-3.5 cm Ao Asc: 3.20 2.1-3.4 cm Pulmonary Veins Pulm Vein S/D 1.30 Pulmonary Valve PV Pk German: 0.78 Peak PV Grad: 2.00 Updated in Other Vendor System with Status of Final Estuardo Pina MD electronically signed on 11/19/2023 4:05:25 PM with status of Final
== END ==
LOC: HO.CARD 14:43
PROVIDERS: PCP Family Medicine; Visit Provider Nurse Practitioner Family
DX: R55 Syncope and collapse (principal); R42 Dizziness and giddiness
CPT/HCPCS: 93242; 93306; Q9957

== ENCOUNTER → 2023-11-18 14:47 | Outpatient (BNV) | payer OTHER, SELFPAY | PROVIDERS: PCP Family Medicine; Visit Provider Internal Medicine Cardiovascular Disease | DX: I47.10 Supraventricular tachycardia, unspecified (principal) | CPT/HCPCS: 93244; 93306 ==

== ENCOUNTER 2023-11-20 15:00 | Outpatient (RCR) | payer OTHER, SELFPAY ==
[2023-11-10 12:57] VITALS: BP 143/85; PULSE 69
--- NOTE | 2023-11-10 15:17 | MHC.PT.EP ---
[facility] [place] Office [place] Office [place] [facility] [address] Jaqueline Najera [address] [phone] F: [phone] F: [phone] F: [phone] F: [phone] Physical Therapy Plan of Care Date of Evaluation: 11/10/23 Date of Surgery: NA Diagnosis: Benign paroxysmal vertigo Assessment: Cherrie is a 58 year old female who is referred to PT for benign paraoxysmal vertigo . She reports of having symptoms of room spinning dizziness for about 2 weeks. At start she also had symptoms of nausea, stomach cramps and diaphoresis however currently only has dizziness. Her symptoms are some spontaneous in nature- with sitting and occasionally with bending over, supine <> sit, looking up and in car. Her symptoms can last from a few seconds to a few hours. On PT examination she presented with intact smooth pursuit, intact saccades, intact visual tracking, negative head thrust and VBI, negative for BPPB in B ald[place] pikes and B roll test and mildly impaired static and dynamic balance. She lives with her and is independent with self care activities but her assists her with all IADLS. 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 She would benefit from skilled PT to address the aforementioned impairments and improve tolerance to functional activities. Frequency and Duration: The patient will be seen 2/week for 5 weeks. Short Term Goals: 1. Pt will deny having symptoms of dizziness when just sitting/ rest in 2 weeks. 2. Pt will be able to tolerate sleeping supine and moving her body through all functional planes in bed without symptoms of dizziness in 3 weeks Agricultural Commodities Grader Goals: 1. Pt will be able to part take in IADLS like cleaning, cooking, grocery and driving without symptoms of dizziness in 4 weeks. 2. Pt will return to PLOF in 5 weeks Treatment Plan: Modalities to reduce pain, spasms and effusion. Manual therapy to restore motion and function. Therapeutic exercise to improve strength and flexibility. Neuromuscular re-education for posture and balance. Therapeutic activities to return to functional activities of daily living. Electronically signed by: Poonam Li PT DPT Please sign and return to therapist. Thank you for your referral.
--- NOTE | 2023-12-21 16:13 | MHC.PT.DC ---
[facility] [place] Office [place] Office [place] Office [address] Jaqueline Najera [address] [facility] [phone] F: [phone] F: [phone] F: [phone] F: [phone] Physical Therapy Discharge Report Diagnosis: Benign paroxysmal vertigo Date of Surgery: NA Date of Evaluation: 11/10/23 Date of Discharge: 12/21/23 Treatments to Date: 3 Cancellations to Date: 0 No Shows to Date: Discharge Status: Patient Elected to Stop Discharge Summary: Cherrie attended 3 PT visits and canceled her last scheduled visit due to personal issues. She has not returned to PT in over a month and therefore is being d/c from PT. Electronically signed by: Poonam Li, PT DPT Please sign and return to therapist. Thank you for your referral.
== END 2023-12-21 16:14 | disposition home or self-care (01) ==
LOC: HO.PT 15:00
PROVIDERS: PCP Family Medicine; Visit Provider Nurse Practitioner Family
DX: H81.10 Benign paroxysmal vertigo, unspecified ear (principal)
CPT/HCPCS: 95992; 97112; 97161

== ENCOUNTER 2023-12-14 15:15 | Outpatient (AMB) | payer OTHER, SELFPAY ==
[2023-12-14 15:17] VITALS: BP 124/72; PULSE 87; BMI 44.5
--- NOTE | 2023-12-14 15:17 | MHC.OFFVIS ---
Intake Vital Signs 12/14/23 15:17 Height 5 ft 3 in Weight 251 lb 5.231 oz BMI 44.5 BP 124/72 Blood Pressure Location Rt brachial Position Sitting Pulse 87 Pulse Source Pulse Oximeter Intake Visit Reasons: 1 month after echo/holter Box Loader Required: No Allergies smallpox vaccine,live Allergy (Severe, Verified 12/14/23 15:20) seizures, grand mal aspirin Allergy (Mild, Verified 12/14/23 15:20) Hives bupropion [From Wellbutrin] Allergy (Mild, Verified 12/14/23 15:20) Palpitations morphine Allergy (Mild, Verified 12/14/23 15:20) Rash Medication List - Last Reconciled 12/14/23 by FRANCIS Mast acetaminophen 1,000 mg PO Q6H PRN albuterol sulfate 90 mcg/actuation 2 puffs inhalation Q4-6H PRN blood sugar diagnostic (FreeStyle Lite Strips) test blood sugar once a day, 90 days blood-glucose meter (FreeStyle Lite Meter kit) test blood sugar once a day, duration 999 days cyclobenzaprine 10 mg PO TID PRN duloxetine 20 mg PO DAILY ibuprofen 800 mg PO Q8H lamotrigine (Lamictal) 150 mg PO DAILY lancets (FreeStyle Lancets) As directed, 90 days meclizine 25 mg PO TID PRN omeprazole 20 mg PO DAILY 90 days ondansetron HCl 4 mg PO Q8H PRN 3 days pramipexole 0.25 mg PO BEDTIME rosuvastatin 20 mg PO DAILY HPI 1 month after echo/holter HPI Details Cherrie is a 58-year-old female with past medical history of morbid obesity, prediabetes, hyperlipidemia who 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 ER evaluation without acute findings. She was treated with IV fluids and thought to have had a vasovagal event. She was seen again in the emergency room 2 days later with report of lightheadedness and felt to have vertigo. She has since undergone physical therapy for the vertigo. Today she states that the physical therapy did not give her full improvement of her symptoms. The therapist told her she may have labyrinthitis. She has has a ENT referral an appointment with Dr. Whitney in the near future. She had some lightheadedness this past weekend and took meclizine which did help. She has not had any recurrent presyncope, no syncope or falls. No chest discomfort, shortness of breath, palpitations, PND, orthopnea or edema. She remains out of work. [facility] Medical History Uterine polyp History of palpitations Depression Fibroids Ovarian torsion Other and unspecified hyperlipidemia Surgical History Hx of colonoscopy History of D&C History of tonsillectomy History of arthroscopy of left knee History of laparoscopic appendectomy History of laparoscopic cholecystectomy Family History Father High cholesterol Mother HTN (hypertension) Maternal Aunt History of breast cancer Other Mental health disorder Social History Housing: Apartment Alcohol intake: current Alcohol intake frequency: holidays/special occasions only Patient Tobacco Use Status: Never used Tobacco e-Cigarette/Vaping Use: Never Used Second Hand Smoke Exposure: No service: No 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 occupational exposures/hazards: No Cognitive needs: No Hearing needs: No Vision needs: Yes (Glasses) Review of Systems Const Details: random lightheadedness All systems reviewed & are unremarkable except as noted in HPI and below ENT Reports dizziness Card Denies chest pain, Denies chest pain at rest, Denies chest pain with activity, Denies rapid heart rate, Denies pedal edema, Denies edema, Denies leg edema, Denies lightheadedness, Denies palpitations, Denies dyspnea, Denies dyspnea on exertion and Denies orthopnea Resp Denies cough, Denies dyspnea and Denies dyspnea on exertion GI Denies hematochezia and Denies change in stool character Musc Denies abnormal gait, Denies limited range of motion, Denies muscle cramps, Denies muscle weakness, Denies numbness, Denies radiating pain into limb, Denies stiffness and Denies tingling Neuro Denies abnormal gait, Reports dizziness, Denies numbness and Denies tingling Endo Denies palpitations Physical Exam Vital Signs: Last Vital Signs Pulse 87 12/14/23 15:17 BP 124/72 12/14/23 15:17 BMI result Body Mass Index 44.5 Const General: cooperative, healthy appearing, comfortable and no acute distress Orientation/consciousness: patient oriented x3 Neck Neck: Yes normal visual inspection Resp Effort & Inspection: normal respiratory effort Auscultation: clear to auscultation bilaterally, no crackles, no rales, no rhonchi and no wheezes Cardio Jugular venous distension: no JVD Rate: regular rate Rhythm: regular rhythm Heart sounds: S1 normal heart sound present, S2 normal heart sound present, no murmurs and no rubs Neuro General: patient oriented x3 Extrem General: Yes normal to inspection and No no pedal edema Psych Appearance: grossly normal Mental Status: mental status grossly normal Speech and movement: Normal speech and movement present Assessment & Plan Assessment & Plan (1) Near syncope: Code(s): R55 - Syncope and collapse Plan: Episode of presyncope while working. Patient was alternating between standing and sitting and then became lightheaded, sweating, nauseous. She was helped into a laying down position, IV started and fluids given. She was transported to the emergency room her evaluation. A CT scan of the head initially did show a hypodense area in the medulla however MRI of the brain was normal. EKG was also normal. She was thought to have an episode of vasovagal presyncope. She was seen in the emergency room again 2 days later for lightheadedness. It was then determined that she most likely has vertigo. She has seen her PCP and has orders for meclizine as well as physical therapy for position therapy. She tells me that the physical therapy did not help much and that they now believe she has labyrinthitis. She has an ENT appointment in the near future. She is still experiencing periodic dizziness and tells me that the meclizine does help. She has had no recurrent episodes of presyncope and no syncope. An echocardiogram was done on 11/18/2023 showing normal study. Holter monitor done 11/18/2023 for 3 days shows sinus rhythm with average heart rate 67, reported symptoms correlated with sinus rhythm. It seems that her symptoms are ENT related. Will hold off on tilt-table test at this time. Reviewed need for good hydration, recognizing symptoms and sit/lay down as needed. No driving while symptomatic. Cardiology follow-up as needed. (2) BPPV (benign paroxysmal positional vertigo): Code(s): H81.10 - Benign paroxysmal vertigo, unspecified ear Qualifiers: Laterality: bilateral Qualified Code(s): H81.13 - Benign paroxysmal vertigo, bilateral Plan: As above Plan Time spent on chart review, documentation, interview and assessment Coding Level of Care Code Est Pt Level 3 (29908) Diagnoses Near syncope R55 Benign paroxysmal positional vertigo due to bilateral vestibular disorder H81.13 Laterality: bilateral Time Spent (min) 22
== END 2023-12-14 15:38 | disposition home or self-care (01) ==
PROVIDERS: PCP Family Medicine; Visit Provider Nurse Practitioner Family
DX: R55 Syncope and collapse (principal); H81.13 Benign paroxysmal vertigo, bilateral
CPT/HCPCS: 99213

== ENCOUNTER → 2023-12-14 15:15 | Outpatient (BNVA) | payer OTHER, SELFPAY | PROVIDERS: PCP Family Medicine; Visit Provider Nurse Practitioner Family ==

== ENCOUNTER → 2023-12-25 07:54 | Outpatient (BNV) | payer OTHER, SELFPAY ==
--- NOTE | 2023-12-25 07:54 | A.OFFPC_ITS ---
Intake Visit Reasons: Amb Documentation Allergies smallpox vaccine,live Allergy (Severe, Verified 12/14/23 15:20) seizures, grand mal aspirin Allergy (Mild, Verified 12/14/23 15:20) Hives bupropion [From Wellbutrin] Allergy (Mild, Verified 12/14/23 15:20) Palpitations morphine Allergy (Mild, Verified 12/14/23 15:20) Rash Tobacco use date assessed: 11/17/23 HPI HPI Comments History of Present Illness0 Details Given the COVID-19 pandemic, the patient was offered and has consented to a telemedicine visit with Uyen Norton 12/25/23 at 1700 in lieu of a traditional in-office visit. Patient understands the risks, alternatives and benefits of a telemedicine visit. The patient has been informed of the limitations of a telemedicine visit, including the quality of self-reported information (e.g. vital signs and symptoms) as well as the inability to perform a hands-on physical exam by a healthcare provider. Patient understands that a traditional in-office visit may be required based on the findings of today's telemedicine visit. Patient also understands that their insurance will be billed for services rendered and that a copayment may be required. visit for [facility] paperwork update. first visit on 11/04/23: 10/26/23 while working, lightheaded dizzy ff'd by nausea and sweating assoc w/ stomach crampsAt this time, BS was 114. IVF were admin & she was placed in lying positionShe went to the ED at [facility] 10/26/23 - work up reviewed by myself. CT scan of brain, MRI of brain done and WNL. Labs and EKG unrevealing. Was referred to Cards at [facility]. Initial appt tomorrow. Went back to work 10/28/23 and the same thing happened. Back to the ED. Work up again negative. REviewed by myself. Episode of dizzy spells present today, has been there for 1 hour. Started when getting out of the shower. When eyes are closed, she is spinning with the room. has tried meclizine w/o effect. No known alleviating or exacerbating factors. Denies recent medicine changes, travel, head trauma, LOC, chest pain. Second visit 11/17/23 Since this visit she reports that she has started vestibular therapy [facility]. She admits that this is helping. However she has had to miss a few sessions due to the dizziness causing vomiting. Meclizine does not seem to help. 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 Bending over causes her symptoms. Along with sudden head turning. Portal message from patient 11/26/23 cont to have dizziness 12/12/23 PT recommend ENT Referral. Ref erral placed by me 12/18/23 cont to have sx. had appt with EN T scheduled 01/25/24 however was able to get a sooner appt for 12/29/23. She cont to have sx and not able to return to work at this time. FMLA ppw recertified for cont leave 10/26/23-03/17/24 along w/ documentation on official letter head done. Forms will be faxed back to leave dept. 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 Will be having a total abd hysterectomy 01/04/24 at [facility] and will need to be out of work for recovery of this. [facility] Medical History Uterine polyp History of palpitations Depression Fibroids Ovarian torsion Other and unspecified hyperlipidemia Surgical History Hx of colonoscopy History of D&C History of tonsillectomy History of arthroscopy of left knee History of laparoscopic appendectomy History of laparoscopic cholecystectomy Family History Father High cholesterol Mother HTN (hypertension) Maternal Aunt History of breast cancer Other Mental health disorder Social History Housing: Apartment Alcohol intake: current Alcohol intake frequency: holidays/special occasions only Patient Tobacco Use Status: Never used Tobacco e-Cigarette/Vaping Use: Never Used Second Hand Smoke Exposure: No service: No 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 Benjamin Lr, Mer Langley, Alex Odonnell and colleagues, with an educational mi from [employer]. Physical exam (Primary Care) Tobacco/Smoking Status: Tobacco use Status Tobacco use date assessed 11/17/23 12/25/23 07:54 Patient Tobacco Use Status Never used Tobacco 12/25/23 07:54 e-Cigarette/Vaping Use Never Used 12/25/23 07:54 Thrive Assessment: Date of Thrive Assessment Date Thrive assessed 11/17/23 12/25/23 07:54 Telehealth Telehealth Location of provider rendering services: practice address Location of patient: address on file Patient Identification confirmed using: Name, : Yes Telehealth method: voice only Patient verbally consented to treatment: Yes Patient verbally consented to billing insurance company: Yes Patient informed of any privacy concerns related to visit: Yes Minutes spent on Phone/Video with Pt.: 11 Assessment and Plan Assessment & Plan (1) Encounters for administrative purposes: Code(s): Z02.9 - Encounter for administrative examinations, unspecified (2) BPPV (benign paroxysmal positional vertigo): Code(s): H81.10 - Benign paroxysmal vertigo, unspecified ear Qualifiers: Laterality: bilateral Qualified Code(s): H81.13 - Benign paroxysmal v ertigo, bilateral (3) Uterine myoma: Comment: Enlarging in menopause Code(s): D25.9 - Leiomyoma of uterus, unspecified Coding Level of Care Code Tele Est Pt Level 2 (43946) Diagnoses Encounters for administrative purposes Z02.9 Benign paroxysmal positional vertigo due to bilateral vestibular disorder H81.13 Laterality: bilateral Uterine myoma D25.9
== END ==
PROVIDERS: PCP Family Medicine; Visit Provider Nurse Practitioner Family
DX: H81.13 Benign paroxysmal vertigo, bilateral (principal); D25.9 Leiomyoma of uterus, unspecified
CPT/HCPCS: 99442

== ENCOUNTER 2023-12-31 14:22 | Outpatient (REF) | payer OTHER, SELFPAY ==
--- NOTE | ~2023-12-31 | US_ITS ---
EXAM: Pelvic Ultrasound CLINICAL INDICATION: Uterine fibroids COMPARISON: Pelvic ultrasound July 23, 2023 TECHNIQUE: The pelvis was evaluated using transabdominal and transvaginal imaging. FINDINGS: The uterus measures 8.8 x 7.0 x 9.0 cm in longitudinal by AP by transverse dimension. The endometrium is thickened measuring up to 1.6 cm and contains some cystic avascular regions. A few prominent fibroids are again noted and suboptimally evaluated given their size and heterogeneous echotexture, however, there appears to be approximately 4 discrete fibroids, largest measuring approximately 5.5 cm. The cervix measures approximately 2.7 cm in length. Nabothian cyst is present within the cervix. The right ovary measures approximately 2.8 x 1.3 x 2.7 cm and is unremarkable. The left ovary was not clearly visualized. There are no abnormal adnexal masses. There is no free fluid in the pelvis. US/US pelvic and transvaginal IMPRESSION: 1. Fibroid uterus. 2. Thickened endometrium measuring up to 1.6 cm. Direct inspection/biopsy recommended.
== END 2023-12-31 14:23 | disposition home or self-care (01) ==
LOC: HO.HMGCX 14:22
PROVIDERS: PCP Family Medicine; Visit Provider Obstetrics & Gynecology Gynecologic Oncology
DX: D25.9 Leiomyoma of uterus, unspecified (principal)
CPT/HCPCS: 76830; 76856

== ENCOUNTER 2024-01-12 15:35 | Outpatient (AMB) | payer OTHER, SELFPAY ==
--- NOTE | 2024-01-12 15:42 | MHC.PC.OV ---
Vital Signs 01/12/24 15:45 Height 5 ft 3 in Weight 247 lb 2 oz BMI 43.8 BP 128/72 Blood Pressure Location Lt brachial Position Sitting Pulse 62 Pulse Source Pulse Oximeter Temp 98.5 F Temp Source Oral Pulse Oximetry (%) 98 Oxygen Delivery Method Room Air Intake Visit Reasons: 3 mos Intake Note: Patient is here for 3 month follow up, she states she had a hysterectomy yesterday. She appears to be doing good. Allergies smallpox vaccine,live Allergy (Severe, Verified 01/12/24 15:47) seizures, grand mal aspirin Allergy (Mild, Verified 01/12/24 15:47) Hives bupropion [From Wellbutrin] Allergy (Mild, Verified 01/12/24 15:47) Palpitations morphine Allergy (Mild, Verified 01/12/24 15:47) Rash Tobacco use date assessed: 01/12/24 Dental Screening Dental Screen Date: 01/12/24 Did you have a dental visit in the last 12 months?: No Did you have a dental problem in the last 6 months where you did not have access to dental care?: No Was dental information given to patient?: Patient has dentist HPI 3 mos HPI Details 58 y/o female presents to f/u liver enzymes. Labs were drawn 11/05/23. Reviewed labs with pt. Elevated ALT of 47. AST 29. Pt reports ongoing dizziness and reports an episode of syncope while in the shower. Had seen Cardiology 12/14/23 for near syncope and collapse and work-up had been negative. [facility] Medical History (Updated 01/12/24 @ 16:04 by Aleks Reich) Uterine polyp History of palpitations Depression Fibroids Ovarian torsion Other and unspecified hyperlipidemia Surgical History (Updated 01/12/24 @ 15:50 by Concha Ambriz CMA) H/O: hysterectomy Hx of colonoscopy History of D&C History of tonsillectomy History of arthroscopy of left knee History of laparoscopic appendectomy History of laparoscopic cholecystectomy Family History Father High cholesterol Mother HTN (hypertension) Maternal Aunt History of breast cancer Other Mental health disorder Social History Housing: Apartment Alcohol intake: current Alcohol intake frequency: holidays/special occasions only Patient Tobacco Use Status: Never used Tobacco e-Cigarette/Vaping Use: Never Used Second Hand Smoke Exposure: No service: No 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 Benjamin Lr, Mer Langley, Alex Odonnell and colleagues, with an educational mi from [employer]. Physical exam (Primary Care) Vital Signs: Last Vital Signs Temp 98.5 F 01/12/24 15:45 Pulse 62 01/12/24 15:45 BP 128/72 01/12/24 15:45 Pulse Ox 98 01/12/24 15:45 Oxygen Delivery Method Room Air 01/12/24 15:45 BMI result Body Mass Index 43.8 Tobacco/Smoking Status: Tobacco use Status Tobacco use date assessed 01/12/24 01/12/24 15:50 Patient Tobacco Use Status Never used Tobacco 01/12/24 15:44 e-Cigarette/Vaping Use Never Used 01/12/24 15:44 Thrive Assessment: Date of Thrive Assessment Date Thrive assessed 11/17/23 01/12/24 15:44 Const Nutritional Appearance: obese Assessment and Plan Assessment & Plan (1) Elevated liver enzymes: Code(s): R74.8 - Abnormal levels of other serum enzymes Plan: Liver?enzymes?mildly?elevated.??Will?recheck?again?in?January?and?if?still?elevated?or?higher,?will?check?ultrasound (2) Vertigo: Code(s): R42 - Dizziness and giddiness Plan: Vertigo?and?syncope. Followed?by?ENT?and?they?had?given?hydrochlorothiazide?for?possible?Meniere's Patient?had?syncopal?episode?after?shower Likely?multifactorial?and?may?also?have?been?dehydrated?and?orthostatic?as?well?as?possible?vasovagal?syndrome Hydrochlorothiazide?was?decreased Encouraged?good?hydration Discussed?interventions?she?can?try?when?getting?dizzy?or?feeling?lightheaded Follow-up?with?ENT?and?Cardiology?as?recommended (3) Near syncope: Code(s): R55 - Syncope and collapse Plan: As?above Follow-up?with?Cardiology?as?recommended Coding Level of Care Code Est Pt Level 4 (80730) Diagnoses Elevated liver enzymes R74.8 Vertigo R42 Near syncope R55
[2024-01-12 15:45] VITALS: BP 128/72; PULSE 62; TEMP 36.9; O2SAT 98; BMI 43.8
== END 2024-01-12 16:16 | disposition home or self-care (01) ==
PROVIDERS: PCP Family Medicine; Visit Provider Family Medicine
DX: R74.8 Abnormal levels of other serum enzymes (principal); R42 Dizziness and giddiness; R55 Syncope and collapse
CPT/HCPCS: 99214

== ENCOUNTER 2024-02-11 08:12 | Outpatient (AMB) | payer OTHER, SELFPAY ==
[2024-02-11 09:15] VITALS: BP 140/90; PULSE 78; TEMP 36.1; O2SAT 99; BMI 43.9
--- NOTE | 2024-02-11 09:15 | AM.OFFWIN_ITS ---
Intake Vital Signs 02/11/24 09:15 Height 5 ft 3 in Weight 248 lb BMI 43.9 BP 140/90 H Blood Pressure Location Lt brachial Position Sitting Pulse 78 Pulse Source Pulse Oximeter Temp 97.0 F Temp Source Temporal Artery Scan Pulse Oximetry (%) 99 Oxygen Delivery Method Room Air Intake Visit Reasons: EP ?UTI Intake Note: pt is here today for UTI started thursday Patient Tobacco Use Status: Never used Tobacco Allergies smallpox vaccine,live Allergy (Severe, Verified 02/11/24 09:26) seizures, grand mal aspirin Allergy (Mild, Verified 02/11/24 09:26) Hives bupropion [From Wellbutrin] Allergy (Mild, Verified 02/11/24 09:26) Palpitations morphine Allergy (Mild, Verified 02/11/24 09:) Rash Do you need a note to return to daycare/school/sports/work: No HPI HPI Comments History of Present Illness Details 58 y/o female with c/o Urinary symptoms since Thursday. Reports urinary frequency, burning and urgency. Denies vaginal symptoms. PFSH Medical History (Updated 01/12/24 @ 16:04 by Aleks Reich) Uterine polyp History of palpitations Depression Fibroids Ovarian torsion Other and unspecified hyperlipidemia Surgical History (Updated 01/12/24 @ 15:50 by Concha Ambriz CMA) H/O: hysterectomy Hx of colonoscopy History of D&C History of tonsillectomy History of arthroscopy of left knee History of laparoscopic appendectomy History of laparoscopic cholecystectomy Family History Father High cholesterol Mother HTN (hypertension) Maternal Aunt History of breast cancer Other Mental health disorder Social History Housing: Apartment Alcohol intake: current Alcohol intake frequency: holidays/special occasions only Patient Tobacco Use Status: Never used Tobacco e-Cigarette/Vaping Use: Never Used Second Hand Smoke Exposure: No service: No 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 occupational exposures/hazards: No Cognitive needs: No Hearing needs: No Vision needs: Yes (Glasses) Review of Systems Const All systems reviewed & are unremarkable except as noted in HPI and below Physical Exam Vital Signs: Last Vital Signs Temp 97.0 F 02/11/24 09:15 Pulse 78 02/11/24 09:15 BP 140/90 H 02/11/24 09:15 Pulse Ox 99 02/11/24 09:15 Oxygen Delivery Method Room Air 02/11/24 09:15 BMI result Body Mass Index 43.9 Const General: comfortable and no acute distress Nutritional Appearance: obese Orientation/consciousness: patient oriented x3 General: Yes CVA tenderness Back/Spine/Pelvis Back: CVA tenderness Neuro General: patient oriented x3, gait normal and moves all extremities Psych Speech and movement: Normal speech and movement present Results AMB Urinalysis, Automated UA Leukoctes 125 Mohan/uL Last Edit by Apple Roland MA on 02/11/24 09:30 UA Nitrite Negative Last Edit by Apple Roland MA on 02/11/24 09:30 UA Urobilinogen 0.2 mg/dL Last Edit by Apple Roland MA on 02/11/24 09:30 UA Protein 15 mg/dL Last Edit by Apple Roland MA on 02/11/24 09:30 UA pH 6.0 Last Edit by Apple Roland MA on 02/11/24 09:30 UA Blood 10 Puma/uL Last Edit by Apple Roland MA on 02/11/24 09:30 UA Specific [place] 1.020 Last Edit by Apple Roland MA on 02/11/24 09:30 UA Ketone Negative Last Edit by Apple Roland MA on 02/11/24 09:30 UA Bilirubin 1 mg/dL Last Edit by Apple Roland MA on 02/11/24 09:30 UA Glucose 0 mg/dL Last Edit by Apple Roland MA on 02/11/24 09:30 Results Reviewed Results Reviewed: Laboratory Last Values Urine pH (Auto) 6.0 02/11/24 09:28 Specific [place] (Auto) 1.020 02/11/24 09:28 Urine Protein (Auto) 15 mg/dL 02/11/24 09:28 Glucose (UA)(Auto) 0 mg/dL 02/11/24 09:28 Urine Ketones (Auto) Negative 02/11/24 09:28 Urine Blood (Auto) 10 Puma/uL 02/11/24 09:28 Urine Nitrite (Auto) Negative 02/11/24 09:28 Urine Bilirubin (Auto) 1 mg/dL 02/11/24 09:28 Urine Urobilinogen (Auto) 0.2 mg/dL 02/11/24 09:28 Leukocyte Esterase (Auto) 125 Mohan/uL 02/11/24 09:28 Assessment & Plan Assessment & Plan (1) Cystitis: Code(s): N30.90 - Cystitis, unspecified without hematuria Plan: - Hydrate well with fluids - Rest Plan Take Abx as directed. Medications: New ciprofloxacin HCl 500 mg PO BID 14 tabs 0RF 7 days N30.90 - Cystitis, unspecified without hematuria Coding Level of Care Code Est Pt Level 3 (02713) Diagnoses Cystitis N30.90 Time Spent (min) 15
== END 2024-02-11 11:21 | disposition home or self-care (01) ==
PROVIDERS: PCP Family Medicine; Visit Provider Nurse Practitioner Family
DX: N30.90 Cystitis, unspecified without hematuria (principal)
CPT/HCPCS: 99213

== ENCOUNTER 2024-02-16 12:49 | Outpatient (REF) | payer OTHER, SELFPAY ==
[2024-02-16 14:27] LABS: Alanine Aminotransferase 67 U/L (0-31); Albumin Level 4.5 g/dL (3.5-5.0); Alkaline Phosphatase 87 U/L (39-117); Anion Gap 16 (12-20); Aspartate Amino Transferase 40 U/L (5-31); Bilirubin Total 0.6 mg/dL (0.0-1.0); Blood Urea Nitrogen 11 mg/dL (9-16); Calcium 10.5 mg/dL (8.4-10.2); Carbon Dioxide 29 mmol/L (22-29); Chloride 101 mmol/L (96-108); Estimated Glomerular Filt Rate > 60; Glucose Random 120 mg/dL (60-115); Potassium 4.3 mmol/L (3.3-5.1); Sodium 142 mmol/L (135-145); Total Protein 7.7 g/dL (6.5-8.0)
[2024-02-16 15:41] LABS: Estimated Average Glucose 120 mg/dL; Hemoglobin A1C 150.9925 umol/L; Hemoglobin A1c % 5.8 % (<6.0)
== END 2024-02-16 12:50 | disposition home or self-care (01) ==
LOC: HO.LAB 12:49
PROVIDERS: PCP Family Medicine; Visit Provider Family Medicine
DX: R74.8 Abnormal levels of other serum enzymes (principal); R73.01 Impaired fasting glucose; R73.03 Prediabetes
CPT/HCPCS: 36415; 80053; 83036

== ENCOUNTER 2024-02-18 11:46 | Outpatient (AMB) | payer OTHER, SELFPAY ==
--- NOTE | 2024-02-18 11:58 | MHC.PC.OV ---
Vital Signs 02/18/24 12:01 Height 5 ft 3 in Weight 246 lb 7 oz BMI 43.6 BP 136/80 Blood Pressure Location Rt brachial Position Sitting Respiration 14 Pulse 99 Pulse Source Pulse Oximeter Temp 97.4 F Temp Source Temporal Artery Scan Pulse Oximetry (%) 99 Oxygen Delivery Method Room Air Intake Visit Reasons: Follow up elev liver enzymes Intake Note: Patient just wants to know a window on when she wll be able to return to work. [employer] Required: No Accompanied by: Self / Same As Patient Allergies smallpox vaccine,live Allergy (Severe, Verified 02/11/24 09:26) seizures, grand mal aspirin Allergy (Mild, Verified 02/11/24 09:26) Hives bupropion [From Wellbutrin] Allergy (Mild, Verified 02/11/24 09:26) Palpitations morphine Allergy (Mild, Verified 02/11/24 09:26) Rash adhesive Adverse Reaction (Intermediate, Verified 02/18/24 12:06) Rash Medication List - Last Reconciled 02/18/24 by Dennis Elizabeth MD acetaminophen 1,000 mg PO Q6H PRN albuterol sulfate 90 mcg/actuation 2 puffs inhalation Q4-6H PRN blood sugar diagnostic (FreeStyle Lite Strips) test blood sugar once a day, 90 days blood-glucose meter (FreeStyle Lite Meter kit) test blood sugar once a day, duration 999 days cyclobenzaprine 10 mg PO TID PRN duloxetine 20 mg PO DAILY hydrochlorothiazide 25 mg PO Q OTHER DAY ibuprofen 800 mg PO Q8H lamotrigine (Lamictal) 150 mg PO DAILY lancets (FreeStyle Lancets) As directed, 90 days meclizine 25 mg PO TID PRN omeprazole 20 mg PO DAILY 90 days ondansetron HCl 4 mg PO Q8H PRN 3 days pramipexole 0.25 mg PO BEDTIME rosuvastatin 20 mg PO DAILY Tobacco use date assessed: 01/12/24 Dental Screening Dental Screen Date: 01/12/24 HPI Follow up elev liver enzymes HPI Details 58 y/o female presents to f/u elevated liver enzymes. Labs were drawn 02/16/24. Reviewed labs with pt. A1c 5.8%. ALT worsened from 47 to 67. Pt reports veritgo mostly resolved but is still undergoing some lightheadedness. PFSH Medical History Uterine polyp History of palpitations Depression Fibroids Ovarian torsion Other and unspecified hyperlipidemia Surgical History H/O: hysterectomy Hx of colonoscopy History of D&C History of tonsillectomy History of arthroscopy of left knee History of laparoscopic appendectomy History of laparoscopic cholecystectomy Family History (Updated 02/18/24 @ 12:10 by MARCIANO Jimenes) Father High cholesterol Diabetes Hypothyroid Mother HTN (hypertension) Maternal Aunt History of breast cancer Other Mental health disorder Social History (Updated 02/18/24 @ 12:11 by MARCIANO Jimenes) Household Members: Spouse Both parents involved: No Caregiver staying overnight: No Housing: House Are you a primary home day care provider to a significant other at home: No Do you presently have visiting nurse or other home services: No 75 years or older and lives alone: No Alcohol intake: current Alcohol intake frequency: holidays/special occasions only Patient Tobacco Use Status: Never used Tobacco e-Cigarette/Vaping Use: Never Used Second Hand Smoke Exposure: No service: No 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 Benjamin Lr, Mer Langley, Alex Odonnell and colleagues, with an educational mi from [employer]. Review of Systems Const Denies chills, Denies fatigue, Denies fever(s), Denies headache(s) and Denies weakness ENT Denies dizziness and Denies headache(s) Card Denies dyspnea Resp Denies cough, Denies dyspnea, Denies wheezing and Denies other (shortness of breath) Musc Denies numbness and Denies tingling Neuro Denies dizziness, Denies headache(s), Denies numbness, Denies tingling and Denies weakness Psych Denies anxiety and Denies depression Endo Denies fatigue Aller/Immun Denies wheezing Physical exam (Primary Care) Vital Signs: Last Vital Signs Temp 97.4 F 05/02/24 12:01 Pulse 99 02/18/24 12:01 Resp 14 02/18/24 12:01 BP 136/80 02/18/24 12:01 Pulse Ox 99 02/18/24 12:01 Oxygen Delivery Method Room Air 02/18/24 12:01 BMI result Body Mass Index 43.6 Tobacco/Smoking Status: Tobacco use Status Tobacco use date assessed 01/12/24 02/18/24 11:59 Patient Tobacco Use Status Never used Tobacco 02/18/24 12:11 e-Cigarette/Vaping Use Never Used 02/18/24 12:11 Thrive Assessment: Date of Thrive Assessment Date Thrive assessed 11/17/23 02/18/24 11:59 Const General: well developed; No acute distress Nutritional Appearance: well nourished Orientation/consciousness: patient oriented x3 HENMT Head: Yes normocephalic and Yes atraumatic Eyes General: appearance normal, both eyes and all related structures Pupils: Equal, round and reactive pupils present EOM: EOMs intact bilaterally Resp Effort & Inspection: normal respiratory effort Neuro General: patient oriented x3 and gait normal Cranial nerves: Yes Equal, round and reactive pupils present Psych Affect: normal affect Assessment and Plan Assessment & Plan (1) Elevated liver enzymes: Code(s): R74.8 - Abnormal levels of other serum enzymes Plan: Elevated?liver?enzymes?and?continued?to?rise Check?ultrasound (2) Pre-diabetes: Code(s): R73.03 - Prediabetes Plan: Recent?A1c?5.8%. Still?in?pre?diabetes?range.??Encouraged?diet?lower?in?sugars?and?start Encouraged?exercise?though?currently?patient?is?having?some?difficulty?with?this?due?to?recent?surgery. (3) Vertigo: Code(s): R42 - Dizziness and giddiness Plan: Vertigo?has?mostly?resolved?and?presyncopal?episodes?of?stopped. She?is?still?out?of?work?secondary?to?the?above?as?well?as?recent?surgery?for?fibroids. Her?surgeon?has?recommended?she?remain?out?until??and?has?a?follow-up?with?her?on?that?day. Provided?her?surgeon?feels?she?is?ready?to?return?to?work,?I?feel?that?she?may?return?without?restrictions.??I?did?recommend?that?she?hydrate?well. She?can?call?or?return?if?she?is?having?any?new?issues. We?discussed?that?she?can?make?an?appointment?subsequent?to?her?surgical?follow-up?if?she?needs?any?paperwork?filled?out?to?return?to?work. Orders: Orders US abdomen hollins w elastography Today R74.8 - Abnormal levels of other serum enzymes Coding Level of Care Code Est Pt Level 3 (17592) Diagnoses Elevated liver enzymes R74.8 Pre-diabetes R73.03 Vertigo R42
[2024-02-18 12:01] VITALS: BP 136/80; PULSE 99; RESP 14; TEMP 36.3; O2SAT 99; BMI 43.6
== END 2024-02-18 12:40 | disposition home or self-care (01) ==
PROVIDERS: PCP Family Medicine; Visit Provider Family Medicine
DX: R74.8 Abnormal levels of other serum enzymes (principal); R73.03 Prediabetes; R42 Dizziness and giddiness
CPT/HCPCS: 99213

== ENCOUNTER 2024-03-07 08:01 | Outpatient (REF) | payer OTHER, SELFPAY ==
--- NOTE | ~2024-03-07 | US_ITS ---
EXAMINATION: US ABDOMEN LIMITED WITH LIVER ELASTOGRAPHY CLINICAL INFORMATION: Abnormal liver enzymes. COMPARISON: None available. TECHNIQUE: Real-time imaging of the abdominal viscera. Noninvasive ultrasound liver fibrosis assessment is performed using Regan ElastPQ point quantification shear wave elastography (2D-SWE) with a C5-2 MHz transducer. Multiple elastography samples are obtained. FINDINGS: PANCREAS: The visualized pancreatic head and body are normal in appearance. The remainder of the pancreas is obscured from visualization by the overlying bowel gas. LIVER: The liver demonstrates normal size but increased echogenicity suggesting steatosis. No focal lesion or intrahepatic biliary duct dilatation. The right lobe measures 16.0 cm in length. The left lobe measures 12.2 cm in length. Portal flow is hepatopedal. Shear wave liver elastography median stiffness is 2.02 m/s (reference: normal median stiffness is 1.3 m/s or less). IQR/median stiffness to assess sampling precision is 0.25 (reference: good quality data set is IQR/median stiffness of 0.15 or less). GALLBLADDER: Status post cholecystectomy. COMMON BILE DUCT: Normal in caliber measuring 0.8 cm in diameter. RIGHT KIDNEY: No hydronephrosis. No renal calculi or focal parenchymal lesions. The kidney measures 9.5 cm in maximum dimension. FREE FLUID: None. US/US abdomen hollins w elastography IMPRESSION: 1. Echogenic liver suggesting hepatic steatosis. 2. Liver elastography: Although measurements are suggestive of compensated advanced chronic liver disease, there is statistical variability of the sampling which decreases accuracy. REFERENCE: Society of Radiologists in Ultrasound Liver Stiffness Thresholds (2020): LIVER STIFFNESS THRESHOLDS: *Liver Stiffness equal or less than 1.3 m/s: High probability of being normal. *Liver Stiffness less than 1.7 m/s: In the absence of other known clinical signs, rules out compensated advanced chronic liver disease. *Liver Stiffness 1.7-2.1 m/s: Suggestive of compensated advanced chronic liver disease but need further test for confirmation. *Liver Stiffness over 2.1 m/s: Rules in compensated advanced chronic liver disease. *Liver Stiffness over 2.4 m/s: Suggestive of clinically significant portal hypertension. QUALITY OF DATA SET: *IQR/Median value equal or less than 0.15 implies a quality data set. *IQR/Median value over 0.15 implies a poor quality data set. SIGNIFICANT CHANGE FROM PRIOR EXAM: Significant change if liver stiffness measurement is 10% or greater from prior exam. OTHER CONSIDERATIONS: The stage of liver fibrosis may be overestimated in the setting of acute hepatitis, liver inflammation, elevated liver function tests, hepatic vascular congestion, obstructive cholestasis, non-fasting state, and infiltrative diseases such as amyloidosis and lymphoma. In some patients with NAFLD, the liver stiffness thresholds for compensated advanced chronic liver disease may be lower. In causes other than viral hepatitis and NAFLD, liver stiffness thresholds are not well established.
== END 2024-03-07 08:02 | disposition home or self-care (01) ==
LOC: HO.US 08:01
PROVIDERS: PCP Family Medicine; Visit Provider Family Medicine
DX: R74.8 Abnormal levels of other serum enzymes (principal)
CPT/HCPCS: 76705; 76981

== ENCOUNTER 2024-03-09 09:39 | Outpatient (AMB) | payer OTHER, SELFPAY ==
--- NOTE | 2024-03-09 09:41 | A.OFFPC_ITS ---
Vital Signs 03/09/24 09:43 Height 5 ft 3 in Weight 248 lb BMI 43.9 BP 130/72 Blood Pressure Location Lt brachial Position Sitting Pulse 75 Pulse Source Pulse Oximeter Pulse Oximetry (%) 97 Oxygen Delivery Method Room Air Intake Visit Reasons: Follow-up?ultrasound, return?to?work?paperwork Intake Note: Patient is here to follow up on ultrasound and return to work paperwork. Allergies smallpox vaccine,live Allergy (Severe, Verified 03/09/24 09:46) seizures, grand mal aspirin Allergy (Mild, Verified 03/09/24 09:46) Hives bupropion [From Wellbutrin] Allergy (Mild, Verified 03/09/24 09:46) Palpitations morphine Allergy (Mild, Verified 03/09/24 09:46) Rash adhesive Adverse Reaction (Intermediate, Verified 03/09/24 09:46) Rash Medication List - Last Reconciled 03/09/24 by Dennis Elizabeth MD acetaminophen 1,000 mg PO Q6H PRN albuterol sulfate 90 mcg/actuation 2 puffs inhalation Q4-6H PRN blood sugar diagnostic (FreeStyle Lite Strips) test blood sugar once a day, 90 days blood-glucose meter (FreeStyle Lite Meter kit) test blood sugar once a day, duration 999 days cyclobenzaprine 10 mg PO TID PRN duloxetine 20 mg PO DAILY hydrochlorothiazide 25 mg PO Q OTHER DAY ibuprofen 800 mg PO Q8H lamotrigine (Lamictal) 150 mg PO DAILY lancets (FreeStyle Lancets) As directed, 90 days meclizine 25 mg PO TID PRN omeprazole 20 mg PO DAILY 90 days ondansetron HCl 4 mg PO Q8H PRN 3 days pramipexole 0.25 mg PO BEDTIME rosuvastatin 20 mg PO DAILY Tobacco use date assessed: 03/09/24 Dental Screening Dental Screen Date: 03/09/24 Did you have a dental visit in the last 12 months?: No Did you have a dental problem in the last 6 months where you did not have access to dental care?: No Was dental information given to patient?: Patient declined HPI Follow-up?ultrasound, return?to?work?paperwork HPI Details 58 y/o female presents to f/u ultrasound , return to work paperwork. F/u liver ultrasound due to elevated liver enzymes. Liver ultrasound 03/07/24 showed echogenic liver suggesting hepatic steatosis. Pt reports ongoing vertigo/episodes of syncope. Symptoms mostly resolved. She notes few brief episodes. [facility] Medical History Uterine polyp History of palpitations Depression Fibroids Ovarian torsion Other and unspecified hyperlipidemia Surgical History H/O: hysterectomy Hx of colonoscopy History of D&C History of tonsillectomy History of arthroscopy of left knee History of laparoscopic appendectomy History of laparoscopic cholecystectomy Family History (Updated 02/18/24 @ 12:10 by MARCIANO Jimenes) Father High cholesterol Diabetes Hypothyroid Mother HTN (hypertension) Maternal Aunt History of breast cancer Other Mental health disorder Social History (Updated 02/18/24 @ 12:11 by MARCIANO Jimenes) Household Members: Spouse Both parents involved: No Caregiver staying overnight: No Housing: House Are you a primary health care facilities inspector to a significant other at home: No Do you presently have visiting nurse or other home services: No 75 years or older and lives alone: No Alcohol intake: current Alcohol intake frequency: holidays/special occasions only Patient Tobacco Use Status: Never used Tobacco e-Cigarette/Vaping Use: Never Used Second Hand Smoke Exposure: No service: No 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 Benjamin Lr, Mer Langley, Aelx Odonnell and colleagues, with an educational mi from [employer]. Review of Systems Const Denies chills, Denies fatigue, Denies fever(s), Denies headache(s) and Denies weakness ENT Denies dizziness and Denies headache(s) Card Denies dyspnea Resp Denies cough, Denies dyspnea, Denies wheezing and Denies other (shortness of breath) Musc Denies numbness and Denies tingling Neuro Denies dizziness, Denies headache(s), Denies numbness, Denies tingling and Denie s weakness Psych Denies anxiety and Denies depression Endo Denies fatigue Aller/Immun Denies wheezing Physical exam (Primary Care) Vital Signs: Last Vital Signs Pulse 75 03/09/24 09:43 BP 130/72 03/09/24 09:43 Pulse Ox 97 03/09/24 09:43 Oxygen Delivery Method Room Air 03/09/24 09:43 BMI result Body Mass Index 43.9 Tobacco/Smoking Status: Tobacco use Status Tobacco use date assessed 03/09/24 03/09/24 09:51 Patient Tobacco Use Status Never used Tobacco 03/09/24 09:43 e-Cigarette/Vaping Use Never Used 03/09/24 09:43 Thrive Assessment: Date of Thrive Assessment Date Thrive assessed 11/17/23 03/09/24 09:43 Const General: well developed; No acute distress Nutritional Appearance: well nourished and obese morbidly obese Orientation/consciousness: patient oriented x3 HENMT Head: Yes normocephalic and Yes atraumatic Eyes General: appearance normal, both eyes and all related structures Pupils: Equal, round and reactive pupils present EOM: EOMs intact bilaterally Resp Effort & Inspection: normal respiratory effort Auscultation: clear to auscultation bilaterally Cardio Rate: regular rate Rhythm: regular rhythm Heart sounds: S1 normal heart sound present, S2 normal heart sound present, no gallops, no murmurs and no rubs Neuro General: patient oriented x3 and gait normal Cranial nerves: Yes Equal, round and reactive pupils present Psych Affect: normal affect Assessment and Plan Assessment & Plan (1) Elevated liver enzymes: Code(s): R74.8 - Abnormal levels of other serum enzymes Plan: Liver?ultrasound?shows?hepatic?steatosis?without?other?mass?or?lesion. Elastography?in?range?of?compensated?chronic?advanced?liver?disease Advised?patient?work?on?weight?loss Will?continue?to?follow?liver?enzymes (2) Morbid obesity: Code(s): E66.01 - Morbid (severe) obesity due to excess calories Plan: Patient?had?been?referred?to?medical?weight?management?program?but?she?is #[phone] on?wait?list. Will?ask?the?nurse?navigator?to?connect?her?with?a?residential roofer (3) Vertigo: Code(s): R42 - Dizziness and giddiness Plan: Vertigo?and?episodes?of?presyncope. She?has?had?physical?therapy Symptoms?have?mostly?resolved?though?she?notes?a?few?brief?episodes Encouraged?good?hydration Continue?exercises?learned?in?physical?therapy Patient?may?return?to?work?without?restrictions?on?. Filled?out?return?to?work?paperwork. Orders: Orders Complete Blood Count Auto Diff Today E66.01 - Morbid (severe) obesity due to excess calories, Z00.00 - Encounter for general adult medical examination without abnormal findings TSH reflex Free T4 Today E66.01 - Morbid (severe) obesity due to excess calories, Z00.00 - Encounter for general adult medical examination without abnormal findings Comprehensive [place]. Panel Fast Today E66.01 - Morbid (severe) obesity due to excess calories, Z00.00 - Encounter for general adult medical examination without abnormal findings Lipid Panel Today E66.01 - Morbid (severe) obesity due to excess calories, Z00.00 - Encounter for general adult medical examination without abnormal findings Microalbumin, Random (w Creat) Today E66.01 - Morbid (severe) obesity due to excess calories, I10 - Essential (primary) hypertension UA and rflx microscopic Today E66.01 - Morbid (severe) obesity due to excess calories, Z00.00 - Encounter for general adult medical examination without abnormal findings Hemoglobin A1c Today R73.01 - Impaired fasting glucose, R73.03 - Prediabetes Referrals Nurse Navigator Referral E66.01 - Morbid (severe) obesity due to excess calories, K76.0 - Fatty (change of) liver, not elsewhere classified, R73.03 - Prediabetes Coding Level of Care Code Est Pt Level 4 (59577) Diagnoses Elevated liver enzymes R74.8 Morbid obesity E66.01 Vertigo R42
[2024-03-09 09:43] VITALS: BP 130/72; PULSE 75; O2SAT 97; BMI 43.9
== END 2024-03-09 10:32 | disposition home or self-care (01) ==
PROVIDERS: PCP Family Medicine; Visit Provider Family Medicine
DX: R74.8 Abnormal levels of other serum enzymes (principal); E66.01 Morbid (severe) obesity due to excess calories; Z68.41 Body mass index [BMI] 40.0-44.9, adult; R42 Dizziness and giddiness
CPT/HCPCS: 99214

== ENCOUNTER 2024-05-24 10:33 | Outpatient (AMB) | payer OTHER, SELFPAY ==
--- NOTE | 2024-05-24 10:34 | AM.OFFWIN_ITS ---
Intake Vital Signs 05/24/24 10:36 Height 5 ft 3 in Weight 246 lb BMI 43.6 BP 138/80 Blood Pressure Location Lt brachial Position Sitting Pulse 62 Pulse Source Pulse Oximeter Temp 98.4 F Temp Source Oral Pulse Oximetry (%) 97 Oxygen Delivery Method Room Air Intake Visit Reasons: EP Vertigo Intake Note: pt c/o vertigo. Started Last Tuesday 05/15 Patient Tobacco Use Status: Never used Tobacco Allergies smallpox vaccine,live Allergy (Severe, Verified 05/24/24 10:40) seizures, grand mal sulfamethoxazole [From Bactrim] Allergy (Intermediate, Verified 05/24/24 10:40) Itching trimethoprim [From Bactrim] Allergy (Intermediate, Verified 05/24/24 10:40) Itching aspirin Allergy (Mild, Verified 05/24/24 10:40) Hives bupropion [From Wellbutrin] Allergy (Mild, Verified 05/24/24 10:40) Palpitations morphine Allergy (Mild, Verified 05/24/24 10:40) Rash adhesive Adverse Reaction (Intermediate, Verified 05/24/24 10:40) Rash Do you need a note to return to daycare/school/sports/work: No HPI HPI Comments History of Present Illness Details 58 y/o female patient who presents to [facility] in clinic with c/o Vertigo. She has been diagnosed with BPPV. She was evaluated by Cardiology, ENT with no resolution. She was briefly on HCTZ from Cardio but stopped taking due to ineffectiveness. She under alot of stress lately at work and home. She is in a process of moving to [place], so does not get enough rest at night. Recent MRI and CT scan head and brain normal. [facility] Medical History Uterine polyp History of palpitations Depression Fibroids Ovarian torsion Other and unspecified hyperlipidemia Surgical History H/O: hysterectomy Hx of colonoscopy History of D&C History of tonsillectomy History of arthroscopy of left knee History of laparoscopic appendectomy History of laparoscopic cholecystectomy Family History (Updated 02/18/24 @ 12:10 by MARCIANO Jimenes) Father High cholesterol Diabetes Hypothyroid Mother HTN (hypertension) Maternal Aunt History of breast cancer Other Mental health disorder Social History (Updated 02/18/24 @ 12:11 by MARCIANO Jimenes) Household Members: Spouse Both parents involved: No Caregiver staying overnight: No Housing: House Are you a primary home care assistant to a significant other at home: No Do you presently have visiting nurse or other home services: No 75 years or older and lives alone: No Alcohol intake: current Alcohol intake frequency: holidays/special occasions only Patient Tobacco Use Status: Never used Tobacco e-Cigarette/Vaping Use: Never Used Second Hand Smoke Exposure: No service: No 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 occupational exposures/hazards: No Cognitive needs: No Hearing needs: No Vision needs: Yes (Glasses) Review of Systems Const All systems reviewed & are unremarkable except as noted in HPI and below Physical Exam Vital Signs: Last Vital Signs Temp 98.4 F 05/24/24 10:36 Pulse 62 05/24/24 10:36 BP 138/80 05/24/24 10:36 Pulse Ox 97 05/24/24 10:36 Oxygen Delivery Method Room Air 05/24/24 10:36 BMI result Body Mass Index 43.6 Const General: cooperative and no acute distress Nutritional Appearance: obese Orientation/consciousness: patient oriented x3 HEENT Head: Yes normocephalic Ears: external ears normal and TM abnormal bulging and with fluid behind the TM bilateral; not bullous, not dull, not with effusion and not erythematous General nose exam: Normal nasal mucous membranes and turbinates present Mouth: moist mucous membranes Throat: Yes posterior oropharynx normal Resp Effort & Inspection: normal respiratory effort Auscultation: clear to auscultation bilaterally Cardio Heart sounds: S1 normal heart sound present and S2 normal heart sound present Neuro General: patient oriented x3 Assessment & Plan Assessment & Plan (1) BPPV (benign paroxysmal positional vertigo): Code(s): H81.10 - Benign paroxysmal vertigo, unspecified ear Qualifiers: Laterality: bilateral Qualified Code(s): H81.13 - Benign paroxysmal vertigo, bilateral Plan: Ordered TSH levels to r/o any hormonal imbalances F/U with PCP for further management. Recommended Slee study to r/o EMILIANO. reports Pt snoring at night. Plus recent weight gain. Orders: Orders TSH reflex Free T4 Today H81.13 - Benign paroxysmal vertigo, bilateral Coding Level of Care Code Est Pt Level 3 (51288) Diagnoses Benign paroxysmal positional vertigo due to bilateral vestibular disorder H81.13 Laterality: bilateral Time Spent (min) 15
[2024-05-24 10:36] VITALS: BP 138/80; PULSE 62; TEMP 36.9; O2SAT 97; BMI 43.6
== END 2024-05-24 11:41 | disposition home or self-care (01) ==
PROVIDERS: PCP Family Medicine; Visit Provider Nurse Practitioner Family
DX: H81.13 Benign paroxysmal vertigo, bilateral (principal)
CPT/HCPCS: 99213

== ENCOUNTER 2024-05-26 08:20 | Outpatient (REF) | payer OTHER, SELFPAY ==
[2024-05-26 08:43] LABS: MANUAL DIFF FLAG NO
[2024-05-26 08:59] LABS: Basophils Percent Auto 0.4 % (0-2); Eosinophils Absolute Auto 0.2 X10*3/uL (0.0-0.4); Eosinophils Percent Auto 2.1 % (0-4); Hematocrit 45.1 % (37.0-47.0); Imm Gran Abs Auto 0.03 X10*3/uL (0.00-0.03); Imm Gran Pct Auto 0.4 % (0.0-0.4); Lymphocytes Absolute Auto 3.3 X10*3/uL (1.2-4.9); Lymphocytes Percent Auto 44.6 % (20-40); Mean Corpuscular HGB Conc 33.3 g/dl (31.0-35.0); Mean Corpuscular Hemoglobin 30.7 pg (27.0-33.0); Mean Corpuscular Volume 92.2 fL (80.0-98.0); Mean Platelet Volume 9.2 fL (9.4-12.3); Monocytes Absolute Auto 0.3 X10*3/uL (0.1-1.2); Monocytes Percent Auto 4.7 % (2-11); Neutrophils Absolute Auto 3.5 x10*3/uL (2.0-8.3); Neutrophils Percent Auto 47.8 % (45-73); Platelet Count 210 X10*3/uL (160-400); Red Blood Count 4.89 X10*6/uL (4.20-5.50); Red Cell Distribution Width 12.5 % (11.0-16.0); White Blood Count 7.3 X10*3/uL (4.8-10.8)
[2024-05-26 09:23] LABS: Estimated Average Glucose 114 mg/dL; Hemoglobin A1C 150.9789 umol/L; Hemoglobin A1c % 5.6 % (<6.0)
[2024-05-26 09:42] LABS: Alanine Aminotransferase 31 U/L (0-31); Alkaline Phosphatase 71 U/L (39-117); Anion Gap 10 (12-20); Aspartate Amino Transferase 21 U/L (5-31); Bilirubin Total 0.4 mg/dL (0.0-1.0); Blood Urea Nitrogen 16 mg/dL (9-16); Calcium 9.4 mg/dL (8.4-10.2); Carbon Dioxide 30 mmol/L (22-29); Chloride 106 mmol/L (96-108); Cholesterol 219 mg/dL (<200); Estimated Glomerular Filt Rate > 60; Glucose Fasting 93 mg/dL (60-99); HDL Cholesterol 43 mg/dL (>40); LDL Cholesterol Calculated 97 mg/dL (<100); Potassium 4.6 mmol/L (3.3-5.1); Sodium 141 mmol/L (135-145); Total Protein 6.8 g/dL (6.5-8.0); Triglycerides 397 mg/dL (<150)
[2024-05-26 09:58] LABS: TSH reflex Free T4 2.27 uIU/mL (0.32-4.0)
[2024-05-26 12:14] LABS: Appearance Urine Clear; Color Urine Yellow; Glucose Urine UA Negative (Negative); Leukocyte Esterase Urine Negative (Negative); Nitrite Urine Negative (Negative); PH 5.5 (5.0-9.0); Urine Blood Negative (Negative); Urine Ketones Negative (Negative); Urine Protein Negative (Neg-Trace)
[2024-05-26 12:59] LABS: Creatinine Urine 140.37 mg/dL; Microalbumin Urine < 5.0 mg/L
== END 2024-05-26 08:21 | disposition home or self-care (01) ==
LOC: HO.LAB 08:20
PROVIDERS: Absent Provider Nurse Practitioner Family; PCP Family Medicine; Visit Provider Family Medicine
DX: Z00.00 Encounter for general adult medical examination without abnormal findings (principal); E66.01 Morbid (severe) obesity due to excess calories; R73.01 Impaired fasting glucose; R73.03 Prediabetes; I10 Essential (primary) hypertension; R30.0 Dysuria
CPT/HCPCS: 36415; 80053; 80061; 81003; 82043; 82570; 83036; 84443; 85025

== ENCOUNTER 2024-06-03 08:44 | Outpatient (AMB) | payer OTHER, SELFPAY ==
--- NOTE | 2024-06-03 08:57 | A.OFFPC_ITS ---
Vital Signs 06/03/24 08:59 Height 5 ft 3 in Weight 249 lb 4 oz BMI 44.1 BP 130/80 Blood Pressure Location Rt brachial Position Sitting Respiration 16 Pulse 63 Pulse Source Pulse Oximeter Temp 98 F Temp Source Tympanic Pulse Oximetry (%) 96 Oxygen Delivery Method Room Air Intake Visit Reasons: need sick note from vertigo Intake Note: CC of vertigo x2.5 weeks Allergies smallpox vaccine,live Allergy (Severe, Verified 06/03/24 08:58) seizures, grand mal sulfamethoxazole [From Bactrim] Allergy (Intermediate, Verified 06/03/24 08:58) Itching trimethoprim [From Bactrim] Allergy (Intermediate, Verified 06/03/24 08:58) Itching aspirin Allergy (Mild, Verified 06/03/24 08:58) Hives bupropion [From Wellbutrin] Allergy (Mild, Verified 06/03/24 08:58) Palpitations morphine Allergy (Mild, Verified 06/03/24 08:58) Rash adhesive Adverse Reaction (Intermediate, Verified 06/03/24 08:58) Rash Tobacco use date assessed: 03/09/24 Dental Screening Dental Screen Date: 03/09/24 HPI need sick note from vertigo HPI Details 58 y/o female presents today for a sick note for vertigo. Had already been evaluated for vertigo about 10 days ago. She reports ongoing vertigo and is requesting a second note. Has had physical therapy in the past. She notes carla maneuver at home has helped. Has benefited from steroids in the past. HPI Comments History of Present Illness Details Documentation assistance for Dennis Elizabeth MD, was provided by Aleks Reich, [employer]seiling Instructor on 06/03/2024 at 9:16 AM SHAILA. I, Dr. Elizabeth, have read, observed, and verified documentation. PFSH Medical History Uterine polyp History of palpitations Depression Fibroids Ovarian torsion Other and unspecified hyperlipidemia Surgical History H/O: hysterectomy Hx of colonoscopy History of D&C History of tonsillectomy History of arthroscopy of left knee History of laparoscopic appendectomy History of laparoscopic cholecystectomy Family History (Updated 02/18/24 @ 12:10 by MARCIANO Jimenes) Father High cholesterol Diabetes Hypothyroid Mother HTN (hypertension) Maternal Aunt History of breast cancer Other Mental health disorder Social History (Updated 02/18/24 @ 12:11 by MARCIANO Jimenes) Household Members: Spouse Both parents involved: No Caregiver staying overnight: No Housing: House Are you a primary healthcare customer service to a significant other at home: No Do you presently have visiting nurse or other home services: No 75 years or older and lives alone: No Alcohol intake: current Alcohol intake frequency: holidays/special occasions only Patient Tobacco Use Status: Never used Tobacco e-Cigarette/Vaping Use: Never Used Second Hand Smoke Exposure: No service: No 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 Benjamin Lr, Mer Langley, Alex Odonnell and colleagues, with an educational mi from [employer]. Review of Systems Const Denies chills, Denies fatigue, Denies fever(s), Denies headache(s) and Denies weakness ENT Reports vertigo and Denies headache(s) Card Denies dyspnea Resp Denies cough, Denies dyspnea, Denies wheezing and Denies other (shortness of breath) Musc Denies numbness and Denies tingling Neuro Reports vertigo, Denies headache(s), Denies numbness, Denies tingling and Denies weakness Psych Denies anxiety and Denies depression Endo Denies fatigue Aller/Immun Denies wheezing Physical exam (Primary Care) Vital Signs: Last Vital Signs Temp 98 F 06/03/24 08:59 Pulse 63 06/03/24 08:59 Resp 16 06/03/24 08:59 BP 130/80 06/03/24 08:59 Pulse Ox 96 06/03/24 08:59 Oxygen Delivery Method Room Air 06/03/24 08:59 BMI result Body Mass Index 44.1 Tobacco/Smoking Status: Tobacco use Status Tobacco use date assessed 03/09/24 06/03/24 09:03 Patient Tobacco Use Status Never used Tobacco 06/03/24 09:03 e-Cigarette/Vaping Use Never Used 06/03/24 09:03 Thrive Assessment: Date of Thrive Assessment Date Thrive assessed 11/17/23 06/03/24 09:03 Const General: well developed; No acute distress Nutritional Appearance: obese morbidly obese Orientation/consciousness: patient oriented x3 [facility] Head: Yes normocephalic and Yes atraumatic Eyes General: appearance normal, both eyes and all related structures Pupils: Equal, round and reactive pupils present EOM: EOMs intact bilaterally Resp Effort & Inspection: normal respiratory effort Auscultation: clear to auscultation bilaterally Cardio Rate: regular rate Rhythm: regular rhythm Heart sounds: S1 normal heart sound present, S2 normal heart sound present, no gallops, no murmurs and no rubs Neuro General: patient oriented x3 and gait normal Cranial nerves: Yes Equal, round and reactive pupils present Psych Affect: normal affect Assessment and Plan Assessment & Plan (1) Vertigo: Code(s): R42 - Dizziness and giddiness Plan: Patient?has?had?resumption?of?BPPV Has?benefited?from?steroid?in?the?past?and?we?will?give?her?a?prednisone?taper. Giving?her?a?note?to?extend?her?absence?from?work?through?this?past?Thursday?to?to day. Also?encouraged?her?to?continue?Carla?maneuvers?at?home Can?refer?back?to?ENT?if?she?is?not?getting?better (2) Pre-diabetes: Code(s): R73.03 - Prediabetes Plan: After?discu ssion?with?patient?will?add?a?small?dose?metformin?to?help?control?her?blood?sug ars Patient?is?also?hopeful?this?will?help?control?weight?though?I?did?try?to?tempor nuvia?her?expectations?with?the Medications: New prednisone 4 tabs daily for 4 days, 3 tabs daily for 2 days, 2 tabs daily for 2 days, 1 tab daily for 2 days PO daily; 28 tabs 0RF 10 days metformin 250 mg (1/2 x 500 mg) PO DAILY 15 tabs 2RF 30 days Coding Level of Care Code Est Pt Level 3 (46519) Diagnoses Vertigo R42 Pre-diabetes R73.03
[2024-06-03 08:59] VITALS: BP 130/80; PULSE 63; RESP 16; TEMP 36.6; O2SAT 96; BMI 44.1
== END 2024-06-03 09:33 | disposition home or self-care (01) ==
PROVIDERS: PCP Family Medicine; Visit Provider Family Medicine
DX: R42 Dizziness and giddiness (principal); R73.03 Prediabetes
CPT/HCPCS: 99213